=== PATIENT | male | born 1945 | race Caucasian/White ===

== ENCOUNTER → 2016-03-27 | Outpatient (CLI) | payer OTHER ==
[~2016-03-27] MED LIST: AMLO10TA PO; APIX5TAB2 PO; ASPI-892 PO; Amiodarone Hcl PO; ENAL20TA PO; ENLP10T PO; FRSM40T PO; FURO40TA4 PO; METO50TA2 PO; Metoprolol Tartrate PO; PNT40TEC PO; RIVA20TA2 PO
--- OUTSIDE RECORDS SUMMARY | 2016-03-27 08:31 | XMS REPORT | Continuity of Care Document ---
Author Author [facility] Organization [facility] Address Unknown Phone Unavailable Care Team Providers Care Process Control Tech Name Role Phone PCP Unavailable Source Comments Some departments are not documenting in the electronic medical record. If you do not see the information that you expected, contact Release of Information in the Health Information Management department at [phone] for further assistance in locating additional records.[facility] Active Allergies and Adverse Reactions Allergen Noted Date Severity Reactions Comments Codeine 08/13/2014 High DIZZINESS, SYNCOPE Current Medications Prescription Sig. Disp. Refills Start End Date Status Date aspirin EC 81 mg tablet Take 81 mg by mouth Active daily. enalapril (VASOTEC) 20 mg Take 20 mg by mouth Active tablet daily. amLODIPine (NORVASC) 10 Take 10 mg by mouth Active mg tablet daily. metoprolol (LOPRESSOR) 50 Take 50 mg by mouth twice Active mg tablet daily. apixaban (ELIQUIS) 5 mg Take 5 mg by mouth twice Active tab tablet daily. furosemide (LASIX) 40 mg Take 40 mg by mouth Active tablet daily. pantoprazole DR Take 40 mg by mouth Active (PROTONIX) 40 mg tablet daily. Active Problems Problem Noted Date Paroxysmal atrial fibrillation (HCC) 08/14/2014 Overview: 07/16/14: Echo: Via [facility]: EF 50%. Left atrium is dilated LA size=4.2 cm. TDS d/t body habitus 07/18/14:KAT/ DCCV: [facility]: EF 60% mild to moderate mitral regurgitation. Unable to maintain NSR after 2 attempts. Loaded with amiodarone bolus then IV drip. 07/19/14: DCCV: [facility]: 3 attempts for conversion to NSR failed Coronary artery disease involving [place] coronary artery 08/14/2014 Overview: 07/17/14: Lexiscan Stress test: [facility]: EF 36% no ischemia or infarction, diffuse LV hypokinesia 08/01/14: Cardiac Cath: [facility]: mild CAD Social History Tobacco Use Types Packs/Day Years Used Date Current Every Day Smoker Cigars Alcohol Use Drinks/Week oz/Week Comments No 0 Standard 0.0 drinks or equivalent Plan of Care Health Maintenance Due Date Last Done Comments Physical (Comprehensive) 11/27/1952 Exam Pertussis Vaccine 11/27/1958 Tetanus Vaccine 11/27/1964 Colorectal Cancer 11/27/1997 Screening Shingles Vaccine 2007 Prevnar/Pneumovax (#1) 11/27/2012 Influenza Vaccine 10/17/2015 Results from Last 3 Months Not on file
== END ==
LOC: CARD 08:28
PROVIDERS: ATTEND Internal Medicine Interventional Cardiology
DX: I48.1 Persistent atrial fibrillation (principal)
CPT/HCPCS: 93225; 93226

== ENCOUNTER 2016-06-12 08:46 | Outpatient (RCR) | payer OTHER ==
[2016-05-20 09:59] LABS: CALCIUM 8.9 MG/DL (8.5-10.1); CREATININE SERUM 1.3 MG/DL (0.60-1.30); POTASSIUM 4.8 MMOL/L (3.6-5.0)
== END 2016-08-18 | disposition home or self-care (01) ==
LOC: CARD 08:46
PROVIDERS: ATTEND Internal Medicine Interventional Cardiology
DX: I48.1 Persistent atrial fibrillation (principal)
CPT/HCPCS: 36415; 80048; 93270

== ENCOUNTER → 2016-09-01 | Outpatient (CLI) | payer OTHER ==
[2016-09-01 12:12] LABS: ALBUMIN 3.9 GM/DL (3.2-4.5); BILIRUBIN,TOTAL 0.7 MG/DL (0.1-1.0); CALCIUM 9.2 MG/DL (8.5-10.1); CREATININE SERUM 1.33 MG/DL (0.60-1.30); POTASSIUM 4.4 MMOL/L (3.6-5.0); TOTAL PROTEIN 7.6 GM/DL (6.4-8.2)
== END ==
LOC: CARD 11:38
PROVIDERS: ATTEND Physician Assistant
DX: I11.0 Hypertensive heart disease with heart failure (principal); I50.22 Chronic systolic (congestive) heart failure; E78.2 Mixed hyperlipidemia; I48.1 Persistent atrial fibrillation
CPT/HCPCS: 36415; 80053; 80061

== ENCOUNTER 2017-02-16 11:07 | Inpatient (IN) | payer SELFPAY ==
[~2017-02-16] VITALS: Ht 177.8 cm; Wt 142.2 kg
[2017-02-16] MEDS ORDERED: NS IV 1000 ML 1,000 ML IV ONE (12:12)
[2017-02-16] MEDS ORDERED: CLINDAMYCIN INJECTION 900 MG in NS (IVPB) 50 ML IV ONE (12:15)
[2017-02-16 12:30] LABS: BASOPHILS % (AUTO) 0 % (0-10); EOSINOPHILS # (AUTO) 0.1 10^3/uL (0.0-0.3); EOSINOPHILS % (AUTO) 1 % (0-10); HEMATOCRIT 45 % (40-54); HEMOGLOBIN 15.2 G/DL (13.3-17.7); LYMPHOCYTES # (AUTO) 1.5 X 10^3 (1.0-4.0); LYMPHOCYTES % (AUTO) 11 % (12-44); MEAN CORPUSCULAR HEMOGLOBIN 32 PG (25-34); MEAN CORPUSCULAR HGB CONC 34 G/DL (32-36); MEAN CORPUSCULAR VOLUME 94 FL (80-99); MEAN PLATELET VOLUME 11.1 FL (7.4-10.4); MONOCYTES # (AUTO) 1.5 X 10^3 (0.0-1.0); MONOCYTES % (AUTO) 11 % (0-12); NEUTROPHILS # (AUTO) 11.2 X 10^3 (1.8-7.8); NEUTROPHILS % (AUTO) 78 % (42-75); PLATELET COUNT 150 10^3/uL (130-400); RED BLOOD COUNT 4.81 10^6/uL (4.35-5.85); RED CELL DISTRIBUTION WIDTH 13.9 % (10.0-14.5); WHITE BLOOD COUNT 14.3 10^3/uL (4.3-11.0)
[2017-02-16 12:44] LABS: ALANINE AMINOTRANSFERASE 35 U/L (0-55); ALBUMIN 3.6 GM/DL (3.2-4.5); ALKALINE PHOSPHATASE 80 U/L (40-136); BUN/CREATININE RATIO 15; CALCIUM 8.6 MG/DL (8.5-10.1); CARBON DIOXIDE 21 MMOL/L (21-32); CHLORIDE 103 MMOL/L (98-107); GFR ESTIMATED 55; GLUCOSE 113 MG/DL (70-105); SODIUM 135 MMOL/L (135-145)
[2017-02-16 13:00] LABS: BAND NEUTROPHILS 4 %; BASOPHILS % (MANUAL) 0 %; EOSINOPHILS % (MANUAL) 1 %; LYMPHOCYTES % (MANUAL) 13 %; MONOCYTES % (MANUAL) 6 %; NEUTROPHILS % (MANUAL) 76 %; RBC MORPH NORMAL
[2017-02-16] MEDS ORDERED: VANCOMYCIN INJECTION 1,000 MG in NS (IVPB) 250 ML IV ONE (14:00)
--- OUTSIDE RECORDS SUMMARY | 2017-02-16 14:33 | XMS REPORT | Clinical Summary ---
Author Author [facility] Organization [facility] Address Unknown Phone Unavailable Care Team Providers Care Weatherization Installer Name Role Phone PCP Unavailable Source Comments Some departments are not documenting in the electronic medical record. If you do not see the information that you expected, contact Release of Information in the Health Information Management department at [phone] for further assistance in locating additional records.[facility] Allergies Active Allergy Reactions Severity Noted Date Comments Codeine DIZZINESS, SYNCOPE High 08/13/2014 Current Medications Prescription Sig. Disp. Refills Start [...] fibrillation (HCC) 08/14/2014 Overview: 07/16/14: Echo: [facility]: EF 50%. Left atrium is dilated LA size=4.2 cm. TDS d/t body habitus 07/18/14:KAT/ DCCV: [facility]: EF 60% mild to moderate mitral regurgitation. Unable to maintain NSR after 2 attempts. Loaded with amiodarone bolus then IV drip. 07/19/14: DCCV: [facility]: 3 attempts for conversion to NSR failed Coronary artery disease involving [place] coronary artery 08/14/2014 Overview: 07/17/14: Lexiscan Stress test: [facility]: EF 36% no ischemia or infarction, diffuse LV hypokinesia 08/01/14: Cardiac Cath: [facility]: mild CAD Family History Medical History Relation Name Comments Glaucoma Father Stroke Father Diabetes Mother Hypertension Mother Relation Name Status Comments Father Mother Social History Tobacco Use Types Packs/Day Years Used Date Current Every Day Smoker Cigars Alcohol Use Drinks/Week oz/Week Comments No 0 Standard 0.0 drinks or equivalent Sex Assigned at Date Recorded Not on file Last Filed Vital Signs Not on file Plan of Treatment Health Maintenance Due Date Last Done Comments HEPATITIS C SCREENING 1945 PHYSICAL (COMPREHENSIVE) 11/27/1952 EXAM PERTUSSIS VACCINE 11/27/1958 TETANUS VACCINE 11/27/1964 COLORECTAL CANCER 11/27/1997 SCREENING SHINGLES VACCINE 2007 ABDOMINAL AORTIC ANEURYSM 11/27/2012 SCREENING PREVNAR/PNEUMOVAX (#1) 11/27/2012 INFLUENZA VACCINE 09/15/2016 Results Not on filefrom Last 3 Months
--- OUTSIDE RECORDS SUMMARY | 2017-02-16 14:34 | XMS REPORT | Continuity of Care Document ---
Author Author [facility] Organization [facility] Address Unknown Phone Unavailable Allergies Active Description Code Type Severity Reaction Onset Reported/Identified Relationship to Patient Clinical Status Yes codeine [id number] Drug Allergy Moderate DIZZYNESS, GERMAN 07/16/2014 Medications There is no data. Problems Date Dx Coded Attending Type Code Diagnosis Diagnosed By 07/19/2014 HÉCTOR BISWAS, YARA R Ot 250.00 DIAB RAUL WO COMPL, TYPE II OR UNSPEC TY 07/19/2014 YARA ANAYA MD R Ot 272.4 HYPERLIPIDEMIA NEC/NOS 07/19/2014 YARA ANAYA MD R Ot 278.01 MORBID OBESITY 07/19/2014 YARA ANAYA MD R Ot 305.1 TOBACCO USE DISORDER 07/19/2014 YARA ANAYA MD R Ot 338.29 OTHER CHRONIC PAIN 07/19/2014 YARA ANAYA MD R Ot 401.9 HYPERTENSION NOS 07/19/2014 YARA ANAYA MD R Ot 427.31 ATRIAL FIBRILLATION 07/19/2014 YARA ANAYA MD R Ot 427.89 CARDIAC DYSRHYTHMIAS NEC 07/19/2014 YARA ANAYA MD R Ot 496 CHR AIRWAY OBSTRUCT NEC 07/19/2014 YARA ANAYA MD R Ot 716.90 ARTHROPATHY NOS-UNSPEC 07/19/2014 YARA ANAYA MD R Ot 724.5 BACKACHE NOS 07/19/2014 YARA ANAYA MD R Ot 780.57 UNSPECIFIED SLEEP APNEA 07/19/2014 YARA ANAYA MD R Ot 782.3 EDEMA 07/19/2014 YARA ANAYA MD R Ot 783.1 ABNORMAL WEIGHT GAIN 07/19/2014 YARA ANAYA MD R Ot 786.09 RESPIRATORY ABNORM NEC 07/19/2014 YARA ANAYA MD R Ot 786.59 CHEST PAIN NEC 07/19/2014 YARA ANAYA MD R Ot V85.42 BODY MASS INDEX 45.0-49.9, ADULT 07/26/2014 HÉCTOR BISWAS, YARA R Ot 250.00 07/26/2014 HÉCTOR BISWAS, YARA R Ot 272.4 07/26/2014 HÉCTOR BISWAS, YARA R Ot 278.01 07/26/2014 HÉCTOR BISWAS, YARA R Ot 305.1 07/26/2014 HÉCTOR BISWAS, YARA R Ot 338.29 07/26/2014 HÉCTOR BISWAS, YARA R Ot 401.9 07/26/2014 HÉCTOR BISWAS, YARA R Ot 427.31 07/26/2014 HÉCTOR BISWAS, YARA R Ot 427.89 07/26/2014 HÉCTOR BISWAS, YARA R Ot 496 07/26/2014 HÉCTOR BISWAS, YARA R Ot 716.90 07/26/2014 HÉCTOR BISWAS, YARA R Ot 724.5 07/26/2014 HÉCTOR BISWAS, YARA R Ot 780.57 07/26/2014 HÉCTOR BISWAS, YARA R Ot 782.3 07/26/2014 HÉCTOR BISWAS, YARA R Ot 783.1 07/26/2014 HÉCTOR BISWAS, YARA R Ot 786.09 07/26/2014 HÉCTOR BISWAS, YARA R Ot 786.59 07/26/2014 HÉCTOR BISWAS, YARA R Ot V85.42 07/26/2014 HÉCTOR BISWAS, YARA R Ot 250.00 07/26/2014 HÉCTOR BISWAS, YARA R Ot 272.4 07/26/2014 HÉCTOR BISWAS, YARA R Ot 278.01 07/26/2014 HÉCTOR BISWAS, YARA R Ot 305.1 07/26/2014 HÉCTOR BISWAS, YARA R Ot 338.29 07/26/2014 HÉCTOR BISWAS, YARA R Ot 401.9 07/26/2014 HÉCTOR BISWAS, YARA R Ot 427.31 07/26/2014 HÉCTOR BISWAS, YARA R Ot 427.89 07/26/2014 HÉCTOR BISWAS, YARA R Ot 496 07/26/2014 HÉCTOR BISWAS, YARA R Ot 716.90 07/26/2014 HÉCTOR BISWAS, YARA R Ot 724.5 07/26/2014 HÉCTOR BISWAS, YARA R Ot 780.57 07/26/2014 HÉCTOR BISWAS, YARA R Ot 782.3 07/26/2014 HÉCTOR BISWAS, YARA R Ot 783.1 07/26/2014 HÉCTOR BISWAS, YARA R Ot 786.09 07/26/2014 HÉCTOR BISWAS, YARA R Ot 786.59 07/26/2014 HÉCTOR BISWAS, YARA R Ot V85.42 07/26/2014 HÉCTOR BISWAS, YARA R Ot 250.00 07/26/2014 HÉCTOR BISWAS, YARA R Ot 272.4 07/26/2014 HÉCTOR BISWAS, YARA R Ot 278.01 07/26/2014 HÉCTOR BISWAS, YARA R Ot 305.1 07/26/2014 HÉCTOR BISWAS, YARA R Ot 338.29 07/26/2014 HÉCTOR BISWAS, YARA R Ot 401.9 07/26/2014 HÉCTOR BISWAS, YARA R Ot 427.31 07/26/2014 HÉCTOR BISWAS, YARA R Ot 427.89 07/26/2014 HÉCTOR BISWAS, YARA R Ot 496 07/26/2014 HÉCTOR BISWAS, YARA R Ot 716.90 07/26/2014 HÉCTOR BISWAS, YARA R Ot 724.5 07/26/2014 HÉCTOR BISWAS, YARA R Ot 780.57 07/26/2014 HÉCTOR BISWAS, YARA R Ot 782.3 07/26/2014 HÉCTOR BISWAS, YARA R Ot 783.1 07/26/2014 HÉCTOR BISWAS, YARA R Ot 786.09 07/26/2014 HÉCTOR BISWAS, YARA R Ot 786.59 07/26/2014 HÉCTOR BISWAS, YARA R Ot V85.42 08/02/2014 JARED DOMÍNGUEZ MD Ot 272.4 HYPERLIPIDEMIA NEC/NOS 08/02/2014 JARED DOMÍNGUEZ MD Ot 278.01 MORBID OBESITY 08/02/2014 JARED DOMÍNGUEZ MD Ot 305.1 TOBACCO USE DISORDER 08/02/2014 JARED DOMÍNGUEZ MD Ot 327.23 OBSTRUCTIVE SLEEP APNEA (ADULT) (PEDIATR 08/02/2014 JARED DOMÍNGUEZ MD Ot 401.9 HYPERTENSION NOS 08/02/2014 JARED DOMÍNGUEZ MD Ot 414.01 CORONARY ATHEROSCLEROSIS OF [place] CORON 08/02/2014 JARED DOMÍNGUEZ MD Ot 425.4 PRIM CARDIOMYOPATHY NEC 08/02/2014 JARED DOMÍNGUEZ MD Ot 427.31 ATRIAL FIBRILLATION 08/02/2014 JARED DOMÍNGUEZ MD Ot 428.0 CONGESTIVE HEART FAILURE NOS 08/02/2014 JARED DOMÍNGUEZ MD Ot 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 08/02/2014 JARED DOMÍNGUEZ MD Ot 496 CHR AIRWAY OBSTRUCT NEC 08/02/2014 JARED DOMÍNGUEZ MD Ot 786.50 CHEST PAIN NOS 08/02/2014 JARED DOMÍNGUEZ MD Ot V58.61 ANTICOAGULANTS,LT,CURRENT USE 08/02/2014 JARED DOMÍNGUEZ MD Ot V58.69 OTH MED,LT,CURRENT USE 08/02/2014 JARED DOMÍNGUEZ MD Ot V85.43 BODY MASS INDEX 50.0-59.9, ADULT 03/27/2016 GINNA BISWAS, Nash VALDEZ Ot I48.1 PERSISTENT ATRIAL FIBRILLATION 03/27/2016 GINNA BISWAS, Nash VALDEZ Ot I48.1 PERSISTENT ATRIAL FIBRILLATION 03/27/2016 Nash CHACKO MD Ot I48.1 PERSISTENT ATRIAL FIBRILLATION 03/30/2016 Nash CHACKO MD Ot I48.1 PERSISTENT ATRIAL FIBRILLATION 03/30/2016 Nash CHACKO MD Ot I48.1 PERSISTENT ATRIAL FIBRILLATION 05/21/2016 GINNA BISWAS, Nash VALDEZ Ot I48.1 PERSISTENT ATRIAL FIBRILLATION 08/18/2016 Nash CHACKO MD Ot I48.1 PERSISTENT ATRIAL FIBRILLATION 08/31/2016 Nash CHACKO MD Ot I48.1 PERSISTENT ATRIAL FIBRILLATION 09/10/2016 MATT BISWAS Ot E78.2 MIXED HYPERLIPIDEMIA 09/10/2016 MATT BISWAS Ot I11.0 HYPERTENSIVE HEART DISEASE WITH HEART FA 09/10/2016 MATT BISWAS Ot I48.1 PERSISTENT ATRIAL FIBRILLATION 09/10/2016 MATT BISWAS Ot I50.22 CHRONIC SYSTOLIC (CONGESTIVE) HEART FAIL Procedures Code Description Performed By Performed On 99.61 ATRIAL CARDIOVERSION 07/18/2014 99.61 ATRIAL CARDIOVERSION 07/19/2014 Results Test Result Range Whole blood basic metabolic panel - 05/20/16 09:16 Serum or plasma sodium measurement (moles/volume) 141 mmol/L 135-145 Serum or plasma potassium measurement (moles/volume) 4.8 mmol/L 3.6-5.0 Serum or plasma chloride measurement (moles/volume) 109 mmol/L 98-107 Carbon dioxide 21 mmol/L 21-32 Serum or plasma anion gap determination (moles/volume) 11 mmol/L 5-14 Serum or plasma urea nitrogen measurement (mass/volume) 22 mg/dL 7-18 Serum or plasma creatinine measurement (mass/volume) 1.30 mg/dL 0.60-1.30 Serum or plasma urea nitrogen/creatinine mass ratio 17 NRG Serum or plasma creatinine measurement with calculation of estimated glomerular filtration rate 55 NRG Serum or plasma glucose measurement (mass/volume) 99 mg/dL 70-105 Serum or plasma calcium measurement (mass/volume) 8.9 mg/dL 8.5-10.1 Comprehensive metabolic panel - 09/01/16 11:45 Serum or plasma sodium measurement (moles/volume) 140 mmol/L 135-145 Serum or plasma potassium measurement (moles/volume) 4.4 mmol/L 3.6-5.0 Serum or plasma chloride measurement (moles/volume) 106 mmol/L 98-107 Carbon dioxide 25 mmol/L 21-32 Serum or plasma anion gap determination (moles/volume) 9 mmol/L 5-14 Serum or plasma urea nitrogen measurement (mass/volume) 20 mg/dL 7-18 Serum or plasma creatinine measurement (mass/volume) 1.33 mg/dL 0.60-1.30 Serum or plasma urea nitrogen/creatinine mass ratio 15 NRG Serum or plasma creatinine measurement with calculation of estimated glomerular filtration rate 53 NRG Serum or plasma glucose measurement (mass/volume) 104 mg/dL 70-105 Serum or plasma calcium measurement (mass/volume) 9.2 mg/dL 8.5-10.1 Serum or plasma total bilirubin measurement (mass/volume) 0.7 mg/dL 0.1-1.0 Serum or plasma alkaline phosphatase measurement (enzymatic activity/volume) 86 U/L 40-136 Serum or plasma aspartate aminotransferase measurement (enzymatic activity/ volume) 16 U/L 5-34 Serum or plasma alanine aminotransferase measurement (enzymatic activity/volume ) 20 U/L 0-55 Serum or plasma protein measurement (mass/volume) 7.6 g/dL 6.4-8.2 Serum or plasma albumin measurement (mass/volume) 3.9 g/dL 3.2-4.5 Lipid 1996 panel - 09/01/16 11:45 Serum or plasma triglyceride measurement (mass/volume) 99 mg/dL <150 Serum or plasma cholesterol measurement (mass/volume) 197 mg/dL < 200 Serum or plasma cholesterol in HDL measurement (mass/volume) 34 mg/ dL 40-60 Cholesterol in LDL [mass/volume] in serum or plasma by direct assay 149 mg/dL 1-129 Serum or plasma cholesterol in VLDL measurement (mass/volume) 20 mg/ dL 5-40 Complete blood count (CBC) with automated white blood cell (WBC) differential - 02/16/17 11:38 Blood leukocytes automated count (number/volume) 14.3 10*3/uL 4.3-11.0 Blood erythrocytes automated count (number/volume) 4.81 10*6/uL 4.35-5.85 Venous blood hemoglobin measurement (mass/volume) 15.2 g/dL 13.3-17.7 Blood hematocrit (volume fraction) 45 % 40-54 Automated erythrocyte mean corpuscular volume 94 [foz_us] 80-99 Automated erythrocyte mean corpuscular hemoglobin (mass per erythrocyte) 32 pg 25-34 Automated erythrocyte mean corpuscular hemoglobin concentration measurement ( mass/volume) 34 g/dL 32-36 Automated erythrocyte distribution width ratio 13.9 % 10.0-14.5 Automated blood platelet count (count/volume) 150 10*3/uL 130-400 Automated blood platelet mean volume measurement 11.1 [foz_us] 7.4-10.4 Automated blood neutrophils/100 leukocytes 78 % 42-75 Automated blood lymphocytes/100 leukocytes 11 % 12-44 Blood monocytes/100 leukocytes 11 % 0-12 Automated blood eosinophils/100 leukocytes 1 % 0-10 Automated blood basophils/100 leukocytes 0 % 0-10 Blood neutrophils automated count (number/volume) 11.2 10*3 1.8-7.8 Blood lymphocytes automated count (number/volume) 1.5 10*3 1.0-4.0 Blood monocytes automated count (number/volume) 1.5 10*3 0.0-1.0 Automated eosinophil count 0.1 10*3/uL 0.0-0.3 Automated blood basophil count (count/volume) 0.0 10*3/uL 0.0-0.1 Comprehensive metabolic panel - 02/16/17 11:38 Serum or plasma sodium measurement (moles/volume) 135 mmol/L 135-145 Serum or plasma potassium measurement (moles/volume) 4.0 mmol/L 3.6-5.0 Serum or plasma chloride measurement (moles/volume) 103 mmol/L 98-107 Carbon dioxide 21 mmol/L 21-32 Serum or plasma anion gap determination (moles/volume) 11 mmol/L 5-14 Serum or plasma urea nitrogen measurement (mass/volume) 20 mg/dL 7-18 Serum or plasma creatinine measurement (mass/volume) 1.30 mg/dL 0.60-1.30 Serum or plasma urea nitrogen/creatinine mass ratio 15 NRG Serum or plasma creatinine measurement with calculation of estimated glomerular filtration rate 55 NRG Serum or plasma glucose measurement (mass/volume) 113 mg/dL 70-105 Serum or plasma calcium measurement (mass/volume) 8.6 mg/dL 8.5-10.1 Serum or plasma total bilirubin measurement (mass/volume) 1.0 mg/dL 0.1-1.0 Serum or plasma alkaline phosphatase measurement (enzymatic activity/volume) 80 U/L 40-136 Serum or plasma aspartate aminotransferase measurement (enzymatic activity/ volume) 25 U/L 5-34 Serum or plasma alanine aminotransferase measurement (enzymatic activity/volume ) 35 U/L 0-55 Serum or plasma protein measurement (mass/volume) 7.0 g/dL 6.4-8.2 Serum or plasma albumin measurement (mass/volume) 3.6 g/dL 3.2-4.5 Serum or plasma C reactive protein measurement (mass/volume) - 02/16/17 11:38 Serum or plasma C reactive protein measurement (mass/volume) > mg/ dL 0.00-0.50 Blood manual differential performed detection - 02/16/17 11:38 Blood monocytes/100 leukocytes 6 % NRG Manual blood segmented neutrophils/100 leukocytes 76 % NRG Blood band neutrophils/100 leukocytes 4 % NRG Manual blood lymphocytes/100 leukocytes 13 % NRG Manual eosinophils/100 leukocytes in nose 1 % NRG Manual blood basophils/100 leukocytes 0 % NRG Blood erythrocyte morphology finding identification NORMAL NRG Blood lactic acid measurement (moles/volume) - 02/16/17 13:21 Blood lactic acid measurement (moles/volume) 1.32 mmol/L 0.50-2.00 Encounters ACCT No. Visit Date/Time Discharge Status Pt. Type Provider Facility Loc./Unit Complaint [id number] 09/01/2016 11:38:00 09/01/2016 23:59:59 CLS Outpatient MATT BISWAS [facility] CARD I50.22 I10 E78.2 I48.1 [id number] 08/19/2016 09:30:00 08/19/2016 23:59:59 CLS Preadmit Nash CHACKO MD [facility] CARD PERSISTENT AFIB [id number] 06/12/2016 08:46:00 08/18/2016 00:01:00 DIS Outpatient Nash CHACKO MD [facility] CARD PERSISTENT AFIB [id number] 03/27/2016 08:28:00 03/27/2016 23:59:59 CLS Outpatient Nash CHACKO MD [facility] CARD PERSISTENT AFIB [id number] 08/01/2014 07:43:00 08/02/2014 09:44:00 DIS Outpatient CATRACHITA BISWAS, JARED Byrd [facility] CATH CP,AFIB,HTN,HLP [id number] 07/18/2014 13:58:00 07/19/2014 16:45:00 DIS Inpatient YARA ANAYA MD [facility] CSD BRACHYCARDIA,CP,DYSPNEA [id number] 02/16/2017 12:33:00 Document Registration
--- NOTE | 2017-02-16 15:16 | ED General ---
General Chief Complaint: Skin/Wound Problems Stated Complaint: ABDOMINAL WALL CELLULITIS Nursing Triage Note: pt reports lower abdomen redness and pain x 2 days. pt also reports body chills Nursing Sepsis Screen: No Definite Risk Source of Information: Patient Exam Limitations: No Limitations History of Present Illness Time Seen by Provider: 12:05 Initial Comments This 71-year-old gentleman presents to the emergency room with 2 days of anterior abdominal wall tenderness and erythema that is rapidly spreading. He can recall no break in the skin or other injury that could have incited cellulitis. He is afebrile but has experienced some chills. Allergies and Home Medications Allergies Coded Allergies: codeine (Unverified Allergy, Intermediate, DIZZYNESS, FAINTING, 07/16/14) Home Medications Amlodipine Besylate 10 Mg Tablet, 10 MG PO DAILY, (Reported) Enalapril Maleate 10 Mg Tab, 10 MG PO DAILY, (Reported) Furosemide 40 Mg Tablet, 40 MG PO DAILY, (Reported) Metoprolol Tartrate 50 Mg Tablet, 50 MG PO BID, (Reported) Pantoprazole Sod 40 Mg Tab, 40 MG PO DAILY, (Reported) Rivaroxaban 20 Mg Tablet, 20 MG PO DAILY@1700, #30 Ref 4 Prescribed by: JARED DOMÍNGUEZ on 08/02/14 0717 Constitutional: see HPI EENTM: no symptoms reported Respiratory: no symptoms reported Cardiovascular: no symptoms reported Gastrointestinal: no symptoms reported Genitourinary: no symptoms reported Musculoskeletal: no symptoms reported Skin: see HPI Psychiatric/Neurological: No Symptoms Reported Hematologic/Lymphatic: No Symptoms Reported Past Rxefwuf-Jeexse-Qwnfoi Hx Patient Social History Alcohol Use: Denies Use Recreational Drug Use: No Smoking Status: Current Everyday Smoker Type Used: Cigars Recent Foreign Travel: No Contact w/Someone Who Travel: No Recent Infectious Disease Expo: No Physical Abuse: No Sexual Abuse: No Mistreated: No Fear: No Immunizations Up To Date Tetanus Booster (TDap): More than 5yrs Surgeries History of Surgeries: Yes (hernia repair, r knee) Surgeries: Abdominal, Orthopedic Respiratory History of Respiratory Disorde: Yes Respiratory Disorders: Sleep Apnea Cardiovascular History of Cardiac Disorders: Yes (CHF) Cardiac Disorders: Atrial Fibrillation (on chronic anticoagulation), Coronary Artery Disease, High Cholesterol, Hypertension Neurological History of Neurological Disord: No Reproductive System Hx Reproductive Disorders: No Sexually Transmitted Disease: No HIV/AIDS: No Gastrointestinal History of Gastrointestinal Di: No Musculoskeletal History of Musculoskeletal Dis: Yes Musculoskeletal Disorders: Arthritis, Back Injury, Chronic Back Pain Endocrine History of Endocrine Disorders: No HEENT HEENT Disorders: Cataract Loss of Vision: Bilateral Hearing Impairment: Hard of Hearing Cancer History of Cancer: No Psychosocial History of Psychiatric Problem: No Suicide Risk Score: 0 Integumentary History of Skin or Integumenta: No Blood Transfusions History of Blood Disorders: No Adverse Reaction to a Blood Tr: No Physical Exam Vital Signs Vital Sign - Last 12Hours 02/16/17 11:40 Temp 97.6 Pulse 138 Resp 16 B/P (MAP) 126/96 (106) Pulse Ox 96 Capillary Refill : Less Than 3 Seconds General Appearance: No Apparent Distress, WD/WN HEENT: PERRL/EOMI, Normal ENT Inspection, Pharynx Normal Neck: Normal Inspection Respiratory: Lungs Clear, Normal Breath Sounds, No Accessory Muscle Use, No Respiratory Distress Cardiovascular: No Edema, No Murmur, Irregularly Irregular Gastrointestinal: Normal Bowel Sounds, Soft, Tenderness, Other (heat and erythema to much of the lower abdominal wall.) Extremity: Normal Inspection, No Pedal Edema Neurologic/Psychiatric: Alert, Oriented x3, No Motor/Sensory Deficits, Normal 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, 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 Norm as Tested Skin: Warm/Dry, Erythema Focused Exam Evaluation Lactate Level Laboratory Tests 02/16/17 13:21: Lactic Acid Level 1.32 Lactic Acid Level Laboratory Tests Test 02/16/17 13:21 Lactic Acid Level 1.32 MMOL/L (0.50-2.00) Progress/Results/Core Measures Suspected Sepsis Recent Fever Within 48 Hours: No Infection Criteria Present: Suspected New Infection New/Unexplained Altered Menta: No Sepsis Screen: No Definite Risk Sepsis Diagnosis: SIRS Temperature:97.6 Pulse: 138 Respiratory Rate: 16 Laboratory Tests 02/16/17 11:38: White Blood Count 14.3H Blood Pressure 126 /96 Mean: 106 Laboratory Tests 02/16/17 13:21: Lactic Acid Level 1.32 Laboratory Tests 02/16/17 11:38: Creatinine 1.30, Platelet Count 150, Total Bilirubin 1.0 Results/Orders Lab Results Laboratory Tests Test 02/16/17 11:38 02/16/17 13:21 Range/Units White Blood Count 14.3 H 4.3-11.0 10^3/uL Red Blood Count 4.81 4.35-5.85 10^6/uL Hemoglobin 15.2 13.3-17.7 G/DL Hematocrit 45 40-54 % Mean Corpuscular Volume 94 80-99 FL Mean Corpuscular Hemoglobin 32 25-34 PG Mean Corpuscular Hemoglobin Concent 34 32-36 G/DL Red Cell Distribution Width 13.9 10.0-14.5 % Platelet Count 150 130-400 10^3/uL Mean Platelet Volume 11.1 H 7.4-10.4 FL Neutrophils (%) (Auto) 78 H 42-75 % Lymphocytes (%) (Auto) 11 L 12-44 % Monocytes (%) (Auto) 11 0-12 % Eosinophils (%) (Auto) 1 0-10 % Basophils (%) (Auto) 0 0-10 % Neutrophils # (Auto) 11.2 H 1.8-7.8 X 10^3 Lymphocytes # (Auto) 1.5 1.0-4.0 X 10^3 Monocytes # (Auto) 1.5 H 0.0-1.0 X 10^3 Eosinophils # (Auto) 0.1 0.0-0.3 10^3/uL Basophils # (Auto) 0.0 0.0-0.1 10^3/uL Neutrophils % (Manual) 76 % Lymphocytes % (Manual) 13 % Monocytes % (Manual) 6 % Eosinophils % (Manual) 1 % Basophils % (Manual) 0 % Band Neutrophils 4 % Blood Morphology Comment NORMAL Sodium Level 135 135-145 MMOL/L Potassium Level 4.0 3.6-5.0 MMOL/L Chloride Level 103 98-107 MMOL/L Carbon Dioxide Level 21 21-32 MMOL/L Anion Gap 11 5-14 MMOL/L Blood Urea Nitrogen 20 H 7-18 MG/DL Creatinine 1.30 0.60-1.30 MG/DL Estimat Glomerular Filtration Rate 55 BUN/Creatinine Ratio 15 Glucose Level 113 H 70-105 MG/DL Calcium Level 8.6 8.5-10.1 MG/DL Total Bilirubin 1.0 0.1-1.0 MG/DL Aspartate Amino Transf (AST/SGOT) 25 5-34 U/L Alanine Aminotransferase (ALT/SGPT) 35 0-55 U/L Alkaline Phosphatase 80 40-136 U/L C-Reactive Protein High Sensitivity > 15.00 H 0.00-0.50 MG/DL Total Protein 7.0 6.4-8.2 GM/DL Albumin 3.6 3.2-4.5 GM/DL Lactic Acid Level 1.32 0.50-2.00 MMOL/L My Orders Orders - ASHLEY PITTMAN MD Cbc With Automated Diff (02/16/17 12:12) Comprehensive Metabolic Panel (02/16/17 12:12) Hs C Reactive Protein (02/16/17 12:12) Blood Culture (02/16/17 12:12) Saline Lock/Iv-Start (02/16/17 12:12) Ns Iv 1000 Ml (Sodium Chloride 0.9%) (02/16/17 12:12) Lactic Acid Analyzer (02/16/17 12:12) Clindamycin Injection (Cleocin Injection (02/16/17 12:15) Manual Differential (02/16/17 11:38) Vancomycin Injection (Vancomycin Injecti (02/16/17 14:00) Medications Given in ED Current Medications Medications Dose Ordered Sig/Lauar Route Start Time Stop Time Status Last Admin Dose Admin Clindamycin Phosphate 900 mg/ Sodium Chloride 56 ml @ 100 mls/hr ONCE ONCE IV 02/16/17 12:15 02/16/17 12:48 DC 02/16/17 13:22 100 MLS/HR Sodium Chloride 1,000 ml @ 0 mls/hr Q0M ONCE IV 02/16/17 12:12 02/16/17 12:15 DC 02/16/17 13:14 999 MLS/HR Vancomycin HCl 1000 mg/Sodium Chloride 250 ml @ 250 mls/hr ONCE ONCE IV 02/16/17 14:00 02/16/17 14:59 DC 02/16/17 14:09 250 MLS/HR Vital Signs/I&O Vital Sign - Last 12Hours 02/16/17 11:40 Temp 97.6 Pulse 138 Resp 16 B/P (MAP) 126/96 (106) Pulse Ox 96 Capillary Refill : Less Than 3 Seconds Blood Pressure Mean: 106 Progress Note : Progress Note Patient has a significant cellulitis by exam and leukocytosis with markedly elevated CRP on labs. He was given a liter of IV normal saline and started on antibiotic therapy with clindamycin and vancomycin. Case was discussed with Dr. Bentley who agrees with admission for treatment of significant cellulitis with IV antibiotic therapy. Patient declined any pain medication. Departure Communication (Admissions) Communication Dr. Bentley Impression Impression: Primary Impression: Cellulitis, abdominal wall Disposition: ADMITTED INPATIENT Condition: Improved Admissions Decision to Admit Reason: Admit from ER (General) Decision to Admit/Date: Feb 16, 2017 Time/Decision to Admit Time: 12:15 Departure-Patient Inst. Referrals: YARA ANAYA MD (PCP/Family) Primary Care Physician ASHLEY PITTMAN MD Feb 16, 2017 15:16
[2017-02-16 15:30] VITALS: BP 145/89
[2017-02-16] MEDS ORDERED: PANT40TA3 PO (16:59)
[2017-02-16] MEDS ORDERED: RIVA20TA PO (16:59)
[2017-02-16] MEDS ORDERED: ENAL20TA PO (16:59)
[2017-02-16] MEDS ORDERED: VANCOMYCIN 1 GM/NS 250 ML IVPB IV NR ×2 (17:15)
[2017-02-16] MEDS ORDERED: INFLUENZA TRIvalent 2017-2018 0.5 ML/45 MCG SYR IM ONE (17:15)
[2017-02-16] MEDS ORDERED: METO-370 PO (17:19)
[2017-02-16] MEDS ORDERED: POTA-51 PO (17:19)
[2017-02-16] MEDS ORDERED: CATHETER FLUSH 10 ML SYR IV PRN (17:30)
[2017-02-16] MEDS: NS IV 1000 ML 1,000 ML IV SCH (18:14)
[2017-02-16 20:26] VITALS: BP 128/85
[2017-02-16] MEDS: CLINDAMYCIN 900 MG/NS 50 ML IVPB IV SCH ×2 (22:45)
[2017-02-17 00:50] VITALS: BP 138/79
[2017-02-17] MEDS: NS IV 1000 ML 1,000 ML IV SCH ×5 (03:18→22:45)
[2017-02-17 04:25] VITALS: BP 128/66
[2017-02-17] MEDS: CLINDAMYCIN 900 MG/NS 50 ML IVPB IV SCH ×2 (05:43)
[2017-02-17] MEDS: VANCOMYCIN 1500 MG/NS 500 ML IVPB IV SCH ×4 (06:19→18:19)
[2017-02-17 08:00] VITALS: BP 123/77
[2017-02-17] MEDS ORDERED: PIPERACILLIN SODIUM/TAZOBACTAM 4.5 GM in NS (IVPB) 100 ML IV NR (10:30)
--- NOTE | 2017-02-17 10:52 | History & Physical-Hospitalist ---
HPI History of Present Illness: HPI/Chief Complaint CC: Severe abdominal wall abscess with leukocytosis and fever HPI: This is a 71-year-old white male former clinic patient of Dr. Aguilar and regular follow-ups with Dr. Vázquez for atrial fibrillation and CAD who presents to the ER with complaints of abdominal wall erythema and pain. He does have a history of gluteal abscess that was debridement multiple times and eventually healed after surgical excision in the years past who was found to have fever leukocytosis and severe abdominal wall cellulitis with hardened part of the skin high risk for abscess formation. He reports his pain is controlled currently I reconciled all of his home medications and I will consult Dr. Ron to evaluate the need for incision and drainage if that comes to be an issue. He overall is doing well his brought his see Pap sheet so he can use it tonight and I do update him on the possibility of remaining in the hospital for a couple more days for IV antibiotics. He was placed on vancomycin and clindamycin I did broaden out the antibiotic spectrum to Zosyn and discontinue the clindamycin and maintaining the vancomycin due to the severity of the cellulitis. Source: patient, family Exam Limitations: no limitations Date Seen 02/17/17 Time Seen by Provider: 10:30 Attending Physician Santo Bentley MD PCP Cisco Aguilar MD Referring Physician Date of Admission Feb 16, 2017 at 14:22 Home Medications & Allergies Home Medications Reviewed patient Home Medication Reconciliation Form Allergies Allergies Coded Allergies codeine (Unverified Allergy, Intermediate, DIZZYNESS, FAINTING, 07/16/14) Past Omyxnzu-Exrhuw-Wlnlec Hx Patient Social History Marrital Status: Employed/Student: retired Alcohol Use: Denies Use Number of Drinks Today: AA Recreational Drug Use: No Smoking Status: Current Everyday Smoker Type Used: Cigars Physical Abuse Screen: No Sexual Abuse: No Recent Foreign Travel: No Contact w/other who traveled: No Recent Hopitalizations: No Recent Infectious Disease Expo: No Immunizations Up To Date Tetanus Booster (TDap): More than 5yrs Seasonal Allergies Seasonal Allergies: No Surgeries Yes (rt knee) Abdominal, Orthopedic Respiratory Yes COPD Currently Using CPAP: Yes Currently Using BIPAP: No Cardiovascular Yes Atrial Fibrillation (on chronic anticoagulation), Coronary Artery Disease, High Cholesterol, Hypertension Neurological No Reproductive System Hx Reproductive Disorders: No Sexually Transmitted Disease: No HIV/AIDS: No Genitourinary No Gastrointestinal No Musculoskeletal Yes Arthritis, Back Injury, Chronic Back Pain Endocrine History of Endocrine Disorders: No HEENT HEENT Disorders: Cataract Loss of Vision: Bilateral Hearing Impairment: Hard of Hearing Cancer No Psychosocial History of Psychiatric Problem: No Integumentary History of Skin or Integumenta: No Blood Transfusions History of Blood Disorders: No Adverse Reaction to a Blood Tr: No Review of Systems Constitutional: fever, malaise, weakness EENTM: no symptoms reported Respiratory: no symptoms reported Cardiovascular: no symptoms reported Gastrointestinal: no symptoms reported Genitourinary: no symptoms reported Musculoskeletal: no symptoms reported Skin: see HPI, rash Psychiatric/Neurological: No Symptoms Reported All Other Systems Reviewed Negative Unless Noted: Yes Physical Exam Physical Exam Vital Signs Vital Sign - Last 12Hours 02/16/17 02/16/17 11:40 15:30 Temp 97.6 Pulse 138 Resp 16 B/P (MAP) 126/96 (106) Pulse Ox 96 O2 Delivery Room Air Capillary Refill : Less Than 3 Seconds General Appearance: No Apparent Distress, WD/WN, Chronically ill, Obese Eyes: Bilateral Eye Normal Inspection, Bilateral Eye PERRL HEENT: PERRL/EOMI, Normal ENT Inspection, Pharynx Normal Neck: Full Range of Motion, Normal Inspection, Non Tender, Supple, Carotid Bruit Respiratory: Chest Non Tender, Lungs Clear, Normal Breath Sounds, No Accessory Muscle Use, No Respiratory Distress Cardiovascular: Regular Rate, Rhythm, No Edema, No Gallop, No JVD, No Murmur, Normal Peripheral Pulses Gastrointestinal: Normal Bowel Sounds, No Organomegaly, No Pulsatile Mass, Non Tender, Soft Back: Normal Inspection, No CVA Tenderness, No Vertebral Tenderness Extremity: Normal Capillary Refill, Normal Inspection, Normal Range of Motion, Non Tender, No Calf Tenderness, No Pedal Edema Neurologic/Psychiatric: Alert, Oriented x3, No Motor/Sensory Deficits, Normal Mood/Affect Skin: Normal Color, Warm/Dry, Rash (severe erythema of abdominal wall with hardened area under the pannus) Lymphatic: No Adenopathy Results Results/Procedures Lab Laboratory Tests 02/16/17 11:38 Assessment/Plan Admission Diagnosis Severe abdominal wall abscess high risk for abscess formation Assessment and Plan Plan: Broadened antibiotic coverage to Zosyn and vancomycin Consult Dr. Ron for possible abscess formation may need incision and drainage Home medications have been restarted CPAP use Pain control Diagnosis/Problems Diagnosis/Problems (1) Cellulitis, abdominal wall Status: Acute Assessment & Plan: Zosyn and Vanc (2) Atrial fibrillation Status: Chronic Qualifiers: Qualified Codes: I48.2 - Chronic atrial fibrillation (3) Obstructive sleep apnea Status: Chronic Assessment & Plan: Maintain CPAP (4) Obesity Status: Chronic Qualifiers: Qualified Codes: E66.9 - Obesity, unspecified (5) Smoker Status: Chronic Assessment & Plan: Smoking cessation Clinical Quality Measures DVT/VTE Risk/Contraindication: Risk Factor Score Per Nursin RFS Level Per Nursing on Admit: 4+=Very High YULIANA MARTIN DO Feb 17, 2017 10:52
[2017-02-17] MEDS: LACTOBACILLUS Acidoph/Bulgar (LACTINEX/FLORANEX) TAB PO SCH ×2 (10:58→16:38)
[2017-02-17 11:11] LABS: BASOPHILS % (AUTO) 0 % (0-10); EOSINOPHILS # (AUTO) 0.2 10^3/uL (0.0-0.3); EOSINOPHILS % (AUTO) 2 % (0-10); HEMATOCRIT 41 % (40-54); HEMOGLOBIN 13.9 G/DL (13.3-17.7); LYMPHOCYTES # (AUTO) 1.7 X 10^3 (1.0-4.0); LYMPHOCYTES % (AUTO) 17 % (12-44); MEAN CORPUSCULAR HEMOGLOBIN 32 PG (25-34); MEAN CORPUSCULAR HGB CONC 34 G/DL (32-36); MEAN CORPUSCULAR VOLUME 94 FL (80-99); MEAN PLATELET VOLUME 10.8 FL (7.4-10.4); MONOCYTES # (AUTO) 1.2 X 10^3 (0.0-1.0); MONOCYTES % (AUTO) 12 % (0-12); NEUTROPHILS # (AUTO) 6.8 X 10^3 (1.8-7.8); NEUTROPHILS % (AUTO) 69 % (42-75); PLATELET COUNT 145 10^3/uL (130-400); RED CELL DISTRIBUTION WIDTH 13.6 % (10.0-14.5); WHITE BLOOD COUNT 9.9 10^3/uL (4.3-11.0)
[2017-02-17 11:32] LABS: ALANINE AMINOTRANSFERASE 38 U/L (0-55); ALBUMIN 3.3 GM/DL (3.2-4.5); ALKALINE PHOSPHATASE 86 U/L (40-136); BILIRUBIN,TOTAL 0.8 MG/DL (0.1-1.0); BUN/CREATININE RATIO 19; CALCIUM 8.2 MG/DL (8.5-10.1); CARBON DIOXIDE 20 MMOL/L (21-32); CHLORIDE 107 MMOL/L (98-107); CREATININE SERUM 0.89 MG/DL (0.60-1.30); GFR ESTIMATED > 60; GLUCOSE 107 MG/DL (70-105); POTASSIUM 4.3 MMOL/L (3.6-5.0); SODIUM 137 MMOL/L (135-145); TOTAL PROTEIN 6.4 GM/DL (6.4-8.2)
[2017-02-17 12:00] VITALS: BP 138/73
[2017-02-17] MEDS: RT-ALBUTEROL/IPRATROPIUM 3 ML (DUONEB) VIAL INH SCH ×3 (14:15→22:00)
--- NOTE | 2017-02-17 15:08 | CONSULTATION REPORT ---
DATE OF SERVICE: 02/17/2017 ATTENDING PRIMARY CARE PHYSICIAN: Dr. Aguilar. ADMITTING PHYSICIAN: Dr. Bentley. HISTORY OF PRESENT ILLNESS: The patient is a 71-year-old male who was admitted for abdominal wall pain and burning sensation. This gentleman reports that he has had this before in the past, however, very mild. He reports that he has had small pustular lesions along this region on the abdominal wall pannus for years, which he would drain on his own or would spontaneously drain. Upon examination, he does have signs of chronic cellulitis of the abdominal wall along the inferior portion of the pannus. This time around, he has had pain and swelling which was more severe and the redness encompassing the area was much greater. There is also an area of thickening in the central portion which appears to be more consistent with cellulitis. There is no fluctuance at this time to indicate any abscess component. Since being admitted and started on Zosyn, the redness has improved considerably as has the pain. PAST MEDICAL HISTORY: Hypertension, atrial fibrillation, hypercholesterolemia, coronary artery disease, cataracts, degenerative joint disease. PAST SURGICAL HISTORY: Right total knee arthroplasty in 2004, left wrist ORIF in 1993, right hip excisional biopsy of a benign lesion in 1999. ALLERGIES: CODEINE. MEDICATIONS: Xarelto 20 mg daily, enalapril 30 mg daily, Lasix 20 mg daily, Protonix 40 mg daily, potassium daily. SOCIAL HISTORY: Positive smoke, 50 pack years. Negative alcohol. FAMILY HISTORY: Father, pancreatic cancer. Mother, diabetes. VITAL SIGNS: Temperature 97.2, blood pressure 138/73, pulse 80, respirations 20, pulse ox 96% on room air. REVIEW OF SYSTEMS: Well-nourished male, in no acute distress. He is not experiencing shortness of breath or difficulty breathing. No chest pain, palpitations or diaphoresis. No nausea or vomiting, no diarrhea or constipation, no red blood per rectum, no dark tarry stools. No fever or chills. No recent inadvertent weight loss. All other review of systems negative. PHYSICAL EXAMINATION: CHEST: Clear. Good breath sounds bilaterally. HEART: Regular. No murmurs. EXTREMITIES: No lower extremity edema, negative Homans sign. HEENT: No scleral icterus. NECK: No cervical lymphadenopathy. ABDOMEN: Soft, nontender, nondistended. SKIN: Along the inferior portion of the abdominal skin pannus is an area of redness and erythema approximately 14 x 12 cm in size. The area is firm consistently with no areas of fluctuance indicating any abscess at this time, however, a significant cellulitis. The redness has decreased since being admitted and started on IV antibiotics. LABORATORY DATA: WBC 9.9, hemoglobin 13.9, hematocrit 41, platelets 145. ASSESSMENT AND PLAN: A 71-year-old male with abdominal wall pannus cellulitis. This appears to be acute on chronic and there does not appear to be any fluctuance to indicate any abscess at this time. He has also responded well to IV antibiotics with decreased redness, erythema as well as normalization of white count. We will continue to monitor the area for the potential of a developing abscess that will require an incision and drainage. For now, we will continue with conservative management with IV antibiotics and also recommend good hygiene and adequate weight control with diet and exercise. Job ID: [id number] DocumentID: [id number] Dictated Date: 02/17/2017 14:24:21 Delinquent Notice Machine Operator Date: 02/17/2017 15:08:11 Dictated By: KIRBY BALDWIN MD [facility]
--- NOTE | 2017-02-17 15:19 | Physical Therapy Evaluation ---
PT Evaluation-General Medical Diagnosis Admission Date Feb 16, 2017 at 14:22 Medical Diagnosis: abdominal wall erythemia/infection Onset Date: Feb 16, 2017 Therapy Diagnosis Therapy Diagnosis: weakness; abn gait Height/Weight Height (Feet): 5 Height (Inches): 10.00 Weight (Pounds): 316 Weight (Ounces): 0.0 Precautions Precautions/Isolations: Standard Precautions Weight Bear Status Right Lower Extremity: Right Full Weight Bearing Left Lower Extremity: Left Full Weight Bearing Referral Physician: Boyd Reason for Referral: Evaluation/Treatment Medical History Pertinent Medical History: Arthritis, COPD, DM, HTN, Smoking Additional Medical History a fib, high cholesterol, chronic back pain. Current History Admitted with abdominal wall erythemia/burning; found to be infected. Receiving IV antibiotics. Reviewed History: Yes Social History Home: Single Level Current Living Status: Spouse Entry Into Home: Stairs With Railing Prior/Core FIM Prior Level of Function Functional [place] Measure 0=Not Assessed/NA 4=Minimal Assistance 1=Total Assistance 5=Supervision or Setup 2=Maximal Assistance 6=Modified [place] 3=Moderate Assistance 7=Complete [place] Bed Mobility: 6 Transfers (B,C,W/C) (FIM): 6 Gait: 6 (SPC) Locomotion: 6 Pt able to care for himself. Reports his activity is minimal but is able to get around as he desires. PT Evaluation-Current Subjective No specific complaints. Reports it is difficult to move around with the IV attached. Pt/Family Goals Home with spouse when able. Objective Patient Orientation: Person, Place, Time, Situation Problem Solving: Good Attachments: IV ROM/Strength ROM Lower Extremities WFL Strength Lower Extremities WFL Integumentary/Posture Integumentary Refer to nursing notes. Bowel Incontinence: No Bladder Incontinence: No Posture NOrmal and symmetrical Neuromuscular (Tone, Coordination, Reflexes) No noted functional deficits. Sensory Vision: Functional Hearing: Functional Hand Dominance: Right Sensation Right Lower Extremit: Intact Sensation Left Lower Extremity: Intact Transfers Functional [place] Measure 0=Not Assessed/NA 4=Minimal Assistance 1=Total Assistance 5=Supervision or Setup 2=Maximal Assistance 6=Modified [place] 3=Moderate Assistance 7=Complete [place] Transfers (B, C, W/C) (FIM): 5 Supine to/from Sit: 5 Sit to/from Stand: 5 SBA with all functional transfers for safety. Slow with transfer but able to complete without assist. Gait Mode of Locomotion: Walk Anticipated Mode of Locomotion: Walk Gait (FIM): 5 Distance (FIM): 3=150 ft Distance: 250 ft Gait Level of Assist: 5 Gait Persons Needed: 1 Gait Assistive Device: Cane Single Point Comments/Gait Description wide KHALIF with decreased heel toe pattern; Becomes SOA with ambulation but pt reports this is typical, "See, I am like a big rig and big rigs take alot of air to move!" Balance Sitting Static: Good Sitting Dynamic: Good Standing Static: Fair Standing Dynamic: Fair Treatment Gait in the mendosa way; pt up in chair post treatment with needs met. Assessment/Needs Pt presents with unsteady transfers and gait at times with decreased functional activity tolerance. He will benefit from short term PT to work on functional strength and mobility to allow him to return home as he was before. Rehab Potential: Good PT Carton Machine Operator Goals Carton Machine Operator Goals PT Carton Machine Operator Goals Time Frame: Feb 24, 2017 Transfers (B,C,W/C) (FIM): 6 Gait (FIM): 6 Gait distance (FIM): 3=150 ft Gait Assistive Device: Cane Single Point PT Plan Problem List Problem List: Activity Tolerance, Functional Strength, Safety, Balance, Gait, Transfer, Bed Mobility Treatment/Plan Treatment Plan: Continue Plan of Care Treatment Plan: Bed Mobility, Education, Functional Activity Isaac, Functional Strength, Gait, Safety, Therapeutic Exercise, Transfers Treatment Duration: Feb 24, 2017 Frequency: 6 times per week Estimated Hrs Per Day: .25 hour per day Patient and/or Family Agrees t: Yes Safety Risks/Education Patient Education: Transfer Techniques, Safety Issues Teaching Recipient: Patient Teaching Methods: Demonstration, Discussion Response to Teaching: Reinforcement Needed Time/GCodes Time In: 1435 Time Out: 1500 Total Billed Treatment Time: 25 Total Billed Treatment visit EVM 25 PErsonal factors: weight, arthritis examination; SBA with gait; SBA with transfers; limited functional activitiy tolerance Presentation: Evolving due to current hospital stay. HIEU DEL CASTILLO PT Feb 17, 2017 15:19
[2017-02-17 16:00] VITALS: BP 120/68
[2017-02-17] MEDS: PIPERACILLIN SODIUM/TAZOBACTAM 4.5 GM in NS (IVPB) 100 ML IV SCH ×2 (16:39→23:40)
[2017-02-17] MEDS ORDERED: TROUGH ORDER-PHARMACY XX NR (17:00)
[2017-02-17 19:49] VITALS: BP 138/68
[2017-02-17] MEDS: meTOproloL SUCCINATE 50 MG (TOPROL XL) TAB PO SCH (20:32)
[2017-02-17] MEDS: RIVAROXABAN 20 MG TABLET (XARELTO) PO SCH (20:32)
[2017-02-18] VITALS: BP 125/79
[2017-02-18] MEDS: RT-ALBUTEROL/IPRATROPIUM 3 ML (DUONEB) VIAL INH SCH ×6 (01:59→21:38)
[2017-02-18 04:00] VITALS: BP 114/73
[2017-02-18] MEDS: VANCOMYCIN 1500 MG/NS 500 ML IVPB IV SCH ×4 (05:30→17:35)
[2017-02-18] MEDS: NS IV 1000 ML 1,000 ML IV SCH (05:30)
[2017-02-18] MEDS: KCL 20 MEQ TAB (K-DUR) PO SCH (06:46)
[2017-02-18] MEDS: LACTOBACILLUS Acidoph/Bulgar (LACTINEX/FLORANEX) TAB PO SCH ×3 (06:47→17:34)
[2017-02-18 06:57] LABS: BASOPHILS # (AUTO) 0.1 10^3/uL (0.0-0.1); BASOPHILS % (AUTO) 1 % (0-10); EOSINOPHILS # (AUTO) 0.3 10^3/uL (0.0-0.3); EOSINOPHILS % (AUTO) 3 % (0-10); HEMATOCRIT 40 % (40-54); HEMOGLOBIN 13.7 G/DL (13.3-17.7); LYMPHOCYTES # (AUTO) 1.8 X 10^3 (1.0-4.0); LYMPHOCYTES % (AUTO) 19 % (12-44); MEAN CORPUSCULAR HEMOGLOBIN 32 PG (25-34); MEAN CORPUSCULAR HGB CONC 34 G/DL (32-36); MEAN CORPUSCULAR VOLUME 94 FL (80-99); MEAN PLATELET VOLUME 10.8 FL (7.4-10.4); MONOCYTES # (AUTO) 1.2 X 10^3 (0.0-1.0); MONOCYTES % (AUTO) 12 % (0-12); NEUTROPHILS # (AUTO) 6.3 X 10^3 (1.8-7.8); NEUTROPHILS % (AUTO) 66 % (42-75); PLATELET COUNT 176 10^3/uL (130-400); RED BLOOD COUNT 4.28 10^6/uL (4.35-5.85); RED CELL DISTRIBUTION WIDTH 13.5 % (10.0-14.5); WHITE BLOOD COUNT 9.6 10^3/uL (4.3-11.0)
[2017-02-18 07:19] LABS: ALANINE AMINOTRANSFERASE 40 U/L (0-55); ALKALINE PHOSPHATASE 70 U/L (40-136); BILIRUBIN,TOTAL 0.9 MG/DL (0.1-1.0); BUN/CREATININE RATIO 14; CALCIUM 8.1 MG/DL (8.5-10.1); CARBON DIOXIDE 19 MMOL/L (21-32); CHLORIDE 110 MMOL/L (98-107); CREATININE SERUM 1.05 MG/DL (0.60-1.30); GFR ESTIMATED > 60; GLUCOSE 107 MG/DL (70-105); POTASSIUM 4.2 MMOL/L (3.6-5.0); SODIUM 139 MMOL/L (135-145); TOTAL PROTEIN 4.9 GM/DL (6.4-8.2)
[2017-02-18 07:46] VITALS: BP 128/89
[2017-02-18] MEDS: PANTOPRAZOLE 40 MG (PROTONIX) TAB PO SCH (09:20)
[2017-02-18] MEDS: meTOproloL SUCCINATE 50 MG (TOPROL XL) TAB PO SCH ×2 (09:20→21:09)
[2017-02-18] MEDS: PIPERACILLIN SODIUM/TAZOBACTAM 4.5 GM in NS (IVPB) 100 ML IV SCH ×3 (09:20→19:53)
[2017-02-18] MEDS: ENALAPRIL 10 MG (VASOTEC) TAB PO SCH (09:21)
--- NOTE | 2017-02-18 10:40 | Physical Therapy Daily Note ---
PT Daily Note-Current Subjective Patient agrees to PT. He is up independent in room. Pain Numeric Pain Scale: 0-No Pain Location: No Pain Reported Mental Status Patient Orientation: Normal For Age Attachments: IV Transfers Functional [place] Measure 0=Not Assessed/NA 4=Minimal Assistance 1=Total Assistance 5=Supervision or Setup 2=Maximal Assistance 6=Modified [place] 3=Moderate Assistance 7=Complete IndependenceIRFPAI Quality Coding Scale 6 Independent with activity with or without an assistive device 5 Patient requires set up or clean up by helper. Patient completes activity by themselves 4 Supervision or touching assist (CGA). [place] provide cues , steadying assist 3 The helper provides less than half the effort to complete the activity 2 The helper provides more than half the effort to complete the activity 1 Dependent. The helper does all the effort to complete an activity 7 Patient refused to complete or attempt activity 9 The patient did not perform the activity before the current illness or injury 88 Not attempted due to Medical conditions or safety concerns Transfers (B, C, W/C) (FIM): 6 Scootin Sit to/from Stand: 6 Weight Bearing Right Lower Extremity: Right Full Weight Bearing Left Lower Extremity: Left Full Weight Bearing Gait Training Gait (FIM): 6 Distance (FIM): 3=150 ft Distance: 500' Gait Level of Assist: 6 Gait Assistive Device: Cane Single Point WBOS, functional gait sequence Assessment Patient is currently at [facility] with all gross motor skills and has been instructed to be up ad kerri in hallway ambulating. Patient and spouse agree. PT Precision Instrument Maker Goals Correction Goals PT Precision Instrument Maker Goals Time Frame: Feb 24, 2017 Transfers (B,C,W/C) (FIM): 6 Gait (FIM): 6 Gait distance (FIM): 3=150 ft Gait Assistive Device: Cane Single Point PT Plan Treatment/Plan Treatment Plan: Discontinue PT, goals met Treatment Plan: Bed Mobility, Education, Functional Activity Isaac, Functional Strength, Gait, Safety, Therapeutic Exercise, Transfers Treatment Duration: Feb 24, 2017 Frequency: 6 times per week Estimated Hrs Per Day: .25 hour per day Patient and/or Family Agrees t: Yes Discharge Recommendations Therapy D/C Recommendations: Home w/ Family Support Time/GCodes Time In: 955 Time Out: 1010 Total Billed Treatment Time: 15 Total Billed Treatment 1 visit FA 15 min JAY HOOPER PT Feb 18, 2017 10:40
--- NOTE | 2017-02-18 11:42 | Progress Note-Hospitalist ---
Progress Note HPI/CC on Admission CC: Severe abdominal wall abscess with leukocytosis and fever HPI: This is a 71-year-old white male former clinic patient of Dr. Aguilar and regular follow-ups with Dr. Vázquez for atrial fibrillation and CAD who presents to the ER with complaints of abdominal wall erythema and pain. He does have a history of gluteal abscess that was debridement multiple times and eventually healed after surgical excision in the years past who was found to have fever leukocytosis and severe abdominal wall cellulitis with hardened part of the skin high risk for abscess formation. He reports his pain is controlled currently I reconciled all of his home medications and I will consult Dr. Ron to evaluate the need for incision and drainage if that comes to be an issue. He overall is doing well his brought his see Pap sheet so he can use it tonight and I do update him on the possibility of remaining in the hospital for a couple more days for IV antibiotics. He was placed on vancomycin and clindamycin I did broaden out the antibiotic spectrum to Zosyn and discontinue the clindamycin and maintaining the vancomycin due to the severity of the cellulitis. Progress Notes/Assess & Plan Date Seen 02/18/17 Time Seen by Provider: 10:45 Admission Dx/Process Severe abdominal wall abscess high risk for abscess formation Diagonsis/Assessment & Plan Patient doing much better and Dr. Ron does not think that this will have to be drained and it is not an abscess at this current time. Tolerating vancomycin and Zosyn Once to go home soon Will Hep-Lock IV fluids since it is going at 150 mL an hour and history of volume overload so we'll discontinue that Pain is controlled Creatinine levels show no evidence of renal dysfunction. No fever, vital signs stable, pleasant, in shower, at shower side Regular rate and rhythm, clear to auscultation bilaterally but diminished in the bases Abdominal wall cellulitis much improved Severe abdominal wall abscess high risk for abscess formation Plan: Broadened antibiotic coverage to Zosyn and vancomycin Appreciate consult by Dr. Ron Home medications have been restarted CPAP use Pain control HLIVF Diagnosis/Problems Diagnosis/Problems (1) Cellulitis, abdominal wall Status: Acute Assessment & Plan: Zosyn and Vanc (2) Atrial fibrillation Status: Chronic Qualifiers: Qualified Codes: I48.2 - Chronic atrial fibrillation (3) Obstructive sleep apnea Status: Chronic Assessment & Plan: Maintain CPAP (4) Obesity Status: Chronic Qualifiers: Qualified Codes: E66.9 - Obesity, unspecified (5) Smoker Status: Chronic Assessment & Plan: Smoking cessation YULIANA MARTIN DO Feb 18, 2017 11:42
[2017-02-18 12:00] VITALS: BP 141/96
[2017-02-18 15:46] VITALS: BP 127/81
--- NOTE | 2017-02-18 16:23 | Progress Note (SOAP) ---
Subjective Date Seen by Provider: Feb 18, 2017 Time Seen by Provider: 16:00 Subjective/Events-last exam doing better. less pain and redness. no fluctuance to indicate abscess. no fever /chills. Objective Exam Vital Signs Date Time Temp Pulse Resp B/P (MAP) Pulse Ox O2 Delivery O2 Flow Rate FiO2 02/18/17 15:46 97.9 60 20 127/81 (96) 95 Room Air 02/18/17 14:31 96 Room Air 02/18/17 12:00 97.9 95 20 141/96 (111) 97 NIV CPAP 02/18/17 10:25 96 Room Air 02/18/17 09:00 Room Air 02/18/17 07:46 98.0 96 22 128/89 (102) 96 NIV CPAP 02/18/17 04:00 97.7 71 18 114/73 (87) 96 NIV CPAP 02/18/17 00:00 97.3 107 18 125/79 (94) 95 NIV CPAP 02/17/17 21:00 Room Air 02/17/17 19:49 98.6 98 18 138/68 (91) 94 Room Air 02/17/17 19:09 96 Room Air I & O 02/18/17 06:59 Intake Total 7210 ml Output Total 5025 ml Balance 2185 ml Capillary Refill : Less Than 3 Seconds General Appearance: No Apparent Distress HEENT: PERRL/EOMI Neck: Full Range of Motion Respiratory: Chest Non Tender, Decreased Breath Sounds Cardiovascular: Regular Rate, Rhythm Gastrointestinal: normal bowel sounds, non tender, soft Extremity: Normal Capillary Refill Neurologic/Psychiatric: Alert, Oriented x3 Skin: Erythema Lymphatic: No Adenopathy Results Lab Laboratory Tests 02/17/17 17:20: Vancomycin Level Trough 12.0 02/18/17 06:15: White Blood Count 9.6, Red Blood Count 4.28L, Hemoglobin 13.7, Hematocrit 40, Mean Corpuscular Volume 94, Mean Corpuscular Hemoglobin 32, Mean Corpuscular Hemoglobin Concent 34, Red Cell Distribution Width 13.5, Platelet Count 176, Mean Platelet Volume 10.8H, Neutrophils (%) (Auto) 66, Lymphocytes (%) (Auto) 19 , Monocytes (%) (Auto) 12, Eosinophils (%) (Auto) 3, Basophils (%) (Auto) 1, Neutrophils # (Auto) 6.3, Lymphocytes # (Auto) 1.8, Monocytes # (Auto) 1.2H, Eosinophils # (Auto) 0.3, Basophils # (Auto) 0.1, Sodium Level 139, Potassium Level 4.2, Chloride Level 110H, Carbon Dioxide Level 19L, Anion Gap 10, Blood Urea Nitrogen 15, Creatinine 1.05, Estimat Glomerular Filtration Rate > 60, BUN/ Creatinine Ratio 14, Glucose Level 107H, Calcium Level 8.1L, Total Bilirubin 0.9 , Aspartate Amino Transf (AST/SGOT) 27, Alanine Aminotransferase (ALT/SGPT) 40, Alkaline Phosphatase 70, Total Protein 4.9L, Albumin 3.0L Microbiology 02/16/17 Blood Culture - Preliminary, Resulted No growth Assessment/Plan Assessment/Plan Assess & Plan/Chief Complaint abdominal wall cellulitis. continue IV abx. PO augmentin on d/c for 7 days probably tomorrow. Clinical Quality Measures DVT/VTE Risk/Contraindication: Risk Factor Score Per Nursin RFS Level Per Nursing on Admit: 4+=Very High KIRBY BALDWIN MD Feb 18, 2017 16:22
[2017-02-18] MEDS: RIVAROXABAN 20 MG TABLET (XARELTO) PO SCH (21:09)
[2017-02-19 00:27] VITALS: BP 138/90
[2017-02-19] MEDS: RT-ALBUTEROL/IPRATROPIUM 3 ML (DUONEB) VIAL INH SCH ×3 (01:58→10:56)
[2017-02-19] MEDS: PIPERACILLIN/TAZOBACTAM 4.5 GM/NS100 ML IVPB IV SCH ×4 (04:10→11:49)
[2017-02-19] MEDS: LACTOBACILLUS Acidoph/Bulgar (LACTINEX/FLORANEX) TAB PO SCH ×2 (06:36→11:37)
[2017-02-19] MEDS: KCL 20 MEQ TAB (K-DUR) PO SCH (06:36)
[2017-02-19] MEDS: VANCOMYCIN 1500 MG/NS 500 ML IVPB IV SCH ×2 (06:36)
[2017-02-19 07:04] LABS: BASOPHILS # (AUTO) 0.1 10^3/uL (0.0-0.1); BASOPHILS % (AUTO) 1 % (0-10); EOSINOPHILS # (AUTO) 0.4 10^3/uL (0.0-0.3); EOSINOPHILS % (AUTO) 4 % (0-10); HEMATOCRIT 36 % (40-54); HEMOGLOBIN 13.5 G/DL (13.3-17.7); LYMPHOCYTES # (AUTO) 2.1 X 10^3 (1.0-4.0); LYMPHOCYTES % (AUTO) 23 % (12-44); MEAN CORPUSCULAR HEMOGLOBIN 32 PG (25-34); MEAN CORPUSCULAR HGB CONC 38 G/DL (32-36); MEAN CORPUSCULAR VOLUME 86 FL (80-99); MEAN PLATELET VOLUME 9.9 FL (7.4-10.4); MONOCYTES % (AUTO) 11 % (0-12); NEUTROPHILS # (AUTO) 5.5 X 10^3 (1.8-7.8); NEUTROPHILS % (AUTO) 61 % (42-75); PLATELET COUNT 190 10^3/uL (130-400); RED CELL DISTRIBUTION WIDTH 12.7 % (10.0-14.5)
[2017-02-19 07:24] LABS: ALANINE AMINOTRANSFERASE 40 U/L (0-55); ALBUMIN 3.1 GM/DL (3.2-4.5); ALKALINE PHOSPHATASE 74 U/L (40-136); BILIRUBIN,TOTAL 0.7 MG/DL (0.1-1.0); BUN/CREATININE RATIO 13; CALCIUM 8.5 MG/DL (8.5-10.1); CARBON DIOXIDE 18 MMOL/L (21-32); CHLORIDE 110 MMOL/L (98-107); GFR ESTIMATED > 60; GLUCOSE 103 MG/DL (70-105); POTASSIUM 4.4 MMOL/L (3.6-5.0); SODIUM 137 MMOL/L (135-145); TOTAL PROTEIN 6.2 GM/DL (6.4-8.2)
[2017-02-19 08:00] VITALS: BP 139/83
[2017-02-19] MEDS: ENALAPRIL 10 MG (VASOTEC) TAB PO SCH (09:20)
[2017-02-19] MEDS: meTOproloL SUCCINATE 50 MG (TOPROL XL) TAB PO SCH (09:20)
[2017-02-19] MEDS: PANTOPRAZOLE 40 MG (PROTONIX) TAB PO SCH (09:20)
[2017-02-19] MEDS ORDERED: AMOX-358 PO (10:46)
--- NOTE | 2017-02-19 11:51 | Discharge Summary-Hospitalist ---
Diagnosis/Chief Complaint Date of Admission Feb 16, 2017 at 14:22 Date of Discharge Discharge Date: Feb 19, 2017 Admission Diagnosis Severe abdominal wall abscess high risk for abscess formation Discharge Diagnosis Severe abdominal wall abscess high risk for abscess formation (1) Cellulitis, abdominal wall Status: Acute Assessment & Plan: Zosyn and Vanc (2) Atrial fibrillation Status: Chronic (3) Obstructive sleep apnea Status: Chronic Assessment & Plan: Maintain CPAP (4) Obesity Status: Chronic (5) Smoker Status: Chronic Assessment & Plan: Smoking cessation Discharge Summary Discharge Physical Examination Allergies: Coded Allergies: codeine (Unverified Allergy, Intermediate, DIZZYNESS, FAINTING, 07/16/14) Vitals & I&Os Vital Signs Date Time Temp Pulse Resp B/P (MAP) Pulse Ox O2 Delivery O2 Flow Rate FiO2 02/19/17 11:00 96 02/19/17 08:00 97.9 88 22 139/83 (101) Room Air 02/17/17 14:17 21 Hospital Course Hospital course: Patient had an uneventful hospital course he was placed on vancomycin and Zosyn broad antibiotic spectrum due to the severity of the abdominal wall cellulitis at high risk for abscess formation and Dr. Ron was consulted to assess the area to not have abscess formation at this time. He tolerating antibiotics well placed on breathing treatments and maintain all home medications after IV fluids were initiated then stopped on the second hospital day. At the day of discharge she felt good the pinkness of the cellulitis remained but no longer hot to touch not tender there was hardening of the tissue but that was expected to resolve with time. Dr. Ron agreed for discharge and he will be on 5 more days of Augmentin and close follow-up to [facility]. Labs (last 24 hrs) Laboratory Tests 02/19/17 06:32: White Blood Count 9.0, Red Blood Count 4.20L, Hemoglobin 13.5, Hematocrit 36L, Mean Corpuscular Volume 86, Mean Corpuscular Hemoglobin 32, Mean Corpuscular Hemoglobin Concent 38H, Red Cell Distribution Width 12.7, Platelet Count 190, Mean Platelet Volume 9.9, Neutrophils (%) (Auto) 61, Lymphocytes (%) (Auto) 23, Monocytes (%) (Auto) 11, Eosinophils (%) (Auto) 4, Basophils (%) (Auto) 1, Neutrophils # (Auto) 5.5, Lymphocytes # (Auto) 2.1, Monocytes # (Auto) 1.0, Eosinophils # (Auto) 0.4H, Basophils # (Auto) 0.1, Sodium Level 137, Potassium Level 4.4, Chloride Level 110H, Carbon Dioxide Level 18L, Anion Gap 9, Blood Urea Nitrogen 13, Creatinine 1.00, Estimat Glomerular Filtration Rate > 60, BUN/ Creatinine Ratio 13, Glucose Level 103, Calcium Level 8.5, Total Bilirubin 0.7, Aspartate Amino Transf (AST/SGOT) 23, Alanine Aminotransferase (ALT/SGPT) 40, Alkaline Phosphatase 74, Total Protein 6.2L, Albumin 3.1L Microbiology 02/16/17 Blood Culture - Preliminary, Resulted No growth Pending Labs Laboratory Tests 02/19/17 06:32: White Blood Count 9.0, Red Blood Count 4.20, Hemoglobin 13.5, Hematocrit 36, Mean Corpuscular Volume 86, Mean Corpuscular Hemoglobin 32, Mean Corpuscular Hemoglobin Concent 38, Red Cell Distribution Width 12.7, Platelet Count 190, Mean Platelet Volume 9.9, Neutrophils (%) (Auto) 61, Lymphocytes (%) (Auto) 23, Monocytes (%) (Auto) 11, Eosinophils (%) (Auto) 4, Basophils (%) (Auto) 1, Neutrophils # (Auto) 5.5, Lymphocytes # (Auto) 2.1, Monocytes # (Auto) 1.0, Eosinophils # (Auto) 0.4, Basophils # (Auto) 0.1, Sodium Level 137, Potassium Level 4.4, Chloride Level 110, Carbon Dioxide Level 18, Anion Gap 9, Blood Urea Nitrogen 13, Creatinine 1.00, Estimat Glomerular Filtration Rate > 60, BUN/ Creatinine Ratio 13, Glucose Level 103, Calcium Level 8.5, Total Bilirubin 0.7, Aspartate Amino Transf (AST/SGOT) 23, Alanine Aminotransferase (ALT/SGPT) 40, Alkaline Phosphatase 74, Total Protein 6.2, Albumin 3.1 Discharge Home Medications: Active Scripts Active Augmentin 875-125 Tablet (Amoxicillin/Potassium Clav) 1 Each Tablet 1 Each PO BID Reported Metoprolol Succinate 50 Mg Tab.er.24h 50 Mg PO BID Potassium Chloride 20 Meq Tablet.er 20 Meq PO DAILY Enalapril Maleate 20 Mg Tablet 20 Mg PO DAILY Pantoprazole Sodium 40 Mg Tablet.dr 40 Mg PO DAILY Xarelto (Rivaroxaban) 20 Mg Tablet 20 Mg PO HS Instructions to patient/family Please see electronic discharge instructions given to patient. Clinical Quality Measures DVT/VTE Risk/Contraindication: Risk Factor Score Per Nursin RFS Level Per Nursing on Admit: 4+=Very High Problem Qualifiers (1) Atrial fibrillation: Atrial fibrillation type: chronic Qualified Codes: I48.2 - Chronic atrial fibrillation (2) Obesity: Obesity type: unspecified obesity type Obesity classification: unspecified obesity classification Serious obesity comorbidity presence: without serious comorbidity Qualified Codes: E66.9 - Obesity, unspecified YULIANA MARTIN DO Feb 19, 2017 11:51
--- NOTE | 2017-02-19 13:11 | Progress Note (SOAP) ---
Subjective Date Seen by Provider: Feb 19, 2017 Time Seen by Provider: 12:00 Subjective/Events-last exam doing better. less pain and burning abdominal wall. no fever/chills. cellulitis improving. Objective Exam Vital Signs Date Time Temp Pulse Resp B/P (MAP) Pulse Ox O2 Delivery O2 Flow Rate FiO2 02/19/17 11:00 96 02/19/17 08:00 97.9 88 22 139/83 (101) 96 Room Air 02/19/17 06:34 95 02/19/17 01:58 NIV CPAP 02/19/17 00:27 98.5 90 18 138/90 (106) 98 Room Air 02/18/17 21:38 NIV CPAP 02/18/17 21:00 Room Air 02/18/17 18:57 97 Room Air 02/18/17 15:46 97.9 60 20 127/81 (96) 95 Room Air 02/18/17 14:31 96 Room Air I & O 02/19/17 06:59 Intake Total 4760 ml Output Total 1250 ml Balance 3510 ml Capillary Refill : Less Than 3 Seconds General Appearance: No Apparent Distress HEENT: PERRL/EOMI Neck: Full Range of Motion Respiratory: Chest Non Tender, Lungs Clear, Normal Breath Sounds Cardiovascular: Regular Rate, Rhythm Gastrointestinal: normal bowel sounds, non tender, soft Extremity: Normal Capillary Refill Neurologic/Psychiatric: Alert, Oriented x3 Skin: Other (moderate abd panus celluliits, improving, no abscess) Lymphatic: No Adenopathy Results Lab Laboratory Tests 02/19/17 06:32: White Blood Count 9.0, Red Blood Count 4.20L, Hemoglobin 13.5, Hematocrit 36L, Mean Corpuscular Volume 86, Mean Corpuscular Hemoglobin 32, Mean Corpuscular Hemoglobin Concent 38H, Red Cell Distribution Width 12.7, Platelet Count 190, Mean Platelet Volume 9.9, Neutrophils (%) (Auto) 61, Lymphocytes (%) (Auto) 23, Monocytes (%) (Auto) 11, Eosinophils (%) (Auto) 4, Basophils (%) (Auto) 1, Neutrophils # (Auto) 5.5, Lymphocytes # (Auto) 2.1, Monocytes # (Auto) 1.0, Eosinophils # (Auto) 0.4H, Basophils # (Auto) 0.1, Sodium Level 137, Potassium Level 4.4, Chloride Level 110H, Carbon Dioxide Level 18L, Anion Gap 9, Blood Urea Nitrogen 13, Creatinine 1.00, Estimat Glomerular Filtration Rate > 60, BUN/ Creatinine Ratio 13, Glucose Level 103, Calcium Level 8.5, Total Bilirubin 0.7, Aspartate Amino Transf (AST/SGOT) 23, Alanine Aminotransferase (ALT/SGPT) 40, Alkaline Phosphatase 74, Total Protein 6.2L, Albumin 3.1L Microbiology 02/16/17 Blood Culture - Preliminary, Resulted No growth Assessment/Plan Assessment/Plan Assess & Plan/Chief Complaint abdominal wall cellulitis. PO augmentin on d/c for 7 days. high protein diet, low sugar/carb with regularly scheduled exercise(150minutes/ week). Clinical Quality Measures DVT/VTE Risk/Contraindication: Risk Factor Score Per Nursin RFS Level Per Nursing on Admit: 4+=Very High KIRBY BALDWIN MD Feb 19, 2017 1:11 pm
[2017-02-19 14:00] VITALS: BP 139/83
--- OUTSIDE RECORDS SUMMARY | 2017-02-20 21:53 | XMS REPORT | Clinical Summary ---
Author Author [facility] Organization [facility] Address Unknown Phone Unavailable Care Team Providers Care Manager Mental Health Name Role Phone PCP Unavailable Source Comments Some departments are not documenting in the electronic medical record. If you do not see the information that you expected, contact Release of Information in the Health Information Management department at [phone] for further assistance in locating additional records.[facility] Allergies Active Allergy Reactions Severity Noted Date [...] fibrillation (HCC) 08/14/2014 Overview: 07/16/14: Echo: [facility]: EF 50%. Left atrium is dilated LA size=4.2 cm. TDS d/t body habitus 07/18/14:KAT/ DCCV: [facility]: EF 60% mild to moderate mitral regurgitation. Unable to maintain NSR after 2 attempts. Loaded with amiodarone bolus then IV drip. 07/19/14: DCCV: [facility]: 3 attempts for conversion to NSR failed Coronary artery disease involving [place] coronary artery 08/14/2014 Overview: 07/17/14: Lexiscan Stress test: [facility]: EF 36% no ischemia or infarction, diffuse LV hypokinesia 08/01/14: Cardiac Cath: [facility]: mild CAD Family History Medical History Relation [...]
--- OUTSIDE RECORDS SUMMARY | 2017-02-20 21:53 | XMS REPORT | Continuity of Care Document ---
Author Author [facility] Organization [facility] Address Unknown Phone Unavailable Allergies Active Description Code Type Severity Reaction Onset Reported/Identified Relationship to Patient Clinical Status Yes codeine [id number] Drug Allergy Moderate DIZZYNESS, GERMAN 07/16/2014 Medications [...] YARA R Ot 716.90 07/26/2014 HÉCTOR BISWAS, AYRA R Ot 724.5 07/26/2014 HÉCTOR BISWAS, YARA [...] BISWAS, YARA R Ot 782.3 07/26/2014 HÉCTOR BIWSAS, YARA R Ot 783.1 07/26/2014 HÉCTOR BISWAS, [...] DOMÍNGUEZ MD Ot 414.01 CORONARY ATHEROSCLEROSIS OF [place] CORON 08/02/2014 JARED DOMÍNGUEZ MD Ot 425.4 [...] Blood erythrocyte morphology finding identification NORMAL NRG Bacterial blood culture - 02/16/17 12:51 Bacterial blood culture NG NRG Blood lactic acid measurement (moles/volume) - 02/16/17 13:21 Blood lactic acid measurement (moles/volume) 1.32 mmol/L 0.50-2.00 Bacterial blood culture - 02/16/17 13:21 Bacterial blood culture NG NRG Complete blood count (CBC) with automated white blood cell (WBC) differential - 02/17/17 10:40 Blood leukocytes automated count (number/volume) 9.9 10*3/uL 4.3-11.0 Blood erythrocytes automated count (number/volume) 4.40 10*6/uL 4.35-5.85 Venous blood hemoglobin measurement (mass/volume) 13.9 g/dL 13.3-17.7 Blood hematocrit (volume fraction) 41 % 40-54 Automated erythrocyte mean corpuscular volume 94 [foz_us] 80-99 Automated erythrocyte mean corpuscular hemoglobin (mass per erythrocyte) 32 pg 25-34 Automated erythrocyte mean corpuscular hemoglobin concentration measurement ( mass/volume) 34 g/dL 32-36 Automated erythrocyte distribution width ratio 13.6 % 10.0-14.5 Automated blood platelet count (count/volume) 145 10*3/uL 130-400 Automated blood platelet mean volume measurement 10.8 [foz_us] 7.4-10.4 Automated blood neutrophils/100 leukocytes 69 % 42-75 Automated blood lymphocytes/100 leukocytes 17 % 12-44 Blood monocytes/100 leukocytes 12 % 0-12 Automated blood eosinophils/100 leukocytes 2 % 0-10 Automated blood basophils/100 leukocytes 0 % 0-10 Blood neutrophils automated count (number/volume) 6.8 10*3 1.8-7.8 Blood lymphocytes automated count (number/volume) 1.7 10*3 1.0-4.0 Blood monocytes automated count (number/volume) 1.2 10*3 0.0-1.0 Automated eosinophil count 0.2 10*3/uL 0.0-0.3 Automated blood basophil count (count/volume) 0.0 10*3/uL 0.0-0.1 Comprehensive metabolic panel - 02/17/17 10:40 Serum or plasma sodium measurement (moles/volume) 137 mmol/L 135-145 Serum or plasma potassium measurement (moles/volume) 4.3 mmol/L 3.6-5.0 Serum or plasma chloride measurement (moles/volume) 107 mmol/L 98-107 Carbon dioxide 20 mmol/L 21-32 Serum or plasma anion gap determination (moles/volume) 10 mmol/L 5-14 Serum or plasma urea nitrogen measurement (mass/volume) 17 mg/dL 7-18 Serum or plasma creatinine measurement (mass/volume) 0.89 mg/dL 0.60-1.30 Serum or plasma urea nitrogen/creatinine mass ratio 19 NRG Serum or plasma creatinine measurement with calculation of estimated glomerular filtration rate > NRG Serum or plasma glucose measurement (mass/volume) 107 mg/dL 70-105 Serum or plasma calcium measurement (mass/volume) 8.2 mg/dL 8.5-10.1 Serum or plasma total bilirubin measurement (mass/volume) 0.8 mg/dL 0.1-1.0 Serum or plasma alkaline phosphatase measurement (enzymatic activity/volume) 86 U/L 40-136 Serum or plasma aspartate aminotransferase measurement (enzymatic activity/ volume) 28 U/L 5-34 Serum or plasma alanine aminotransferase measurement (enzymatic activity/volume ) 38 U/L 0-55 Serum or plasma protein measurement (mass/volume) 6.4 g/dL 6.4-8.2 Serum or plasma albumin measurement (mass/volume) 3.3 g/dL 3.2-4.5 Vancomycin trough - 02/17/17 17:20 Vancomycin trough 12.0 ug/mL 10.0-20.0 Complete blood count (CBC) with automated white blood cell (WBC) differential - 02/18/17 06:15 Blood leukocytes automated count (number/volume) 9.6 10*3/uL 4.3-11.0 Blood erythrocytes automated count (number/volume) 4.28 10*6/uL 4.35-5.85 Venous blood hemoglobin measurement (mass/volume) 13.7 g/dL 13.3-17.7 Blood hematocrit (volume fraction) 40 % 40-54 Automated erythrocyte mean corpuscular volume 94 [foz_us] 80-99 Automated erythrocyte mean corpuscular hemoglobin (mass per erythrocyte) 32 pg 25-34 Automated erythrocyte mean corpuscular hemoglobin concentration measurement ( mass/volume) 34 g/dL 32-36 Automated erythrocyte distribution width ratio 13.5 % 10.0-14.5 Automated blood platelet count (count/volume) 176 10*3/uL 130-400 Automated blood platelet mean volume measurement 10.8 [foz_us] 7.4-10.4 Automated blood neutrophils/100 leukocytes 66 % 42-75 Automated blood lymphocytes/100 leukocytes 19 % 12-44 Blood monocytes/100 leukocytes 12 % 0-12 Automated blood eosinophils/100 leukocytes 3 % 0-10 Automated blood basophils/100 leukocytes 1 % 0-10 Blood neutrophils automated count (number/volume) 6.3 10*3 1.8-7.8 Blood lymphocytes automated count (number/volume) 1.8 10*3 1.0-4.0 Blood monocytes automated count (number/volume) 1.2 10*3 0.0-1.0 Automated eosinophil count 0.3 10*3/uL 0.0-0.3 Automated blood basophil count (count/volume) 0.1 10*3/uL 0.0-0.1 Comprehensive metabolic panel - 02/18/17 06:15 Serum or plasma sodium measurement (moles/volume) 139 mmol/L 135-145 Serum or plasma potassium measurement (moles/volume) 4.2 mmol/L 3.6-5.0 Serum or plasma chloride measurement (moles/volume) 110 mmol/L 98-107 Carbon dioxide 19 mmol/L 21-32 Serum or plasma anion gap determination (moles/volume) 10 mmol/L 5-14 Serum or plasma urea nitrogen measurement (mass/volume) 15 mg/dL 7-18 Serum or plasma creatinine measurement (mass/volume) 1.05 mg/dL 0.60-1.30 Serum or plasma urea nitrogen/creatinine mass ratio 14 NRG Serum or plasma creatinine measurement with calculation of estimated glomerular filtration rate > NRG Serum or plasma glucose measurement (mass/volume) 107 mg/dL 70-105 Serum or plasma calcium measurement (mass/volume) 8.1 mg/dL 8.5-10.1 Serum or plasma total bilirubin measurement (mass/volume) 0.9 mg/dL 0.1-1.0 Serum or plasma alkaline phosphatase measurement (enzymatic activity/volume) 70 U/L 40-136 Serum or plasma aspartate aminotransferase measurement (enzymatic activity/ volume) 27 U/L 5-34 Serum or plasma alanine aminotransferase measurement (enzymatic activity/volume ) 40 U/L 0-55 Serum or plasma protein measurement (mass/volume) 4.9 g/dL 6.4-8.2 Serum or plasma albumin measurement (mass/volume) 3.0 g/dL 3.2-4.5 Complete blood count (CBC) with automated white blood cell (WBC) differential - 02/19/17 06:32 Blood leukocytes automated count (number/volume) 9.0 10*3/uL 4.3-11.0 Blood erythrocytes automated count (number/volume) 4.20 10*6/uL 4.35-5.85 Venous blood hemoglobin measurement (mass/volume) 13.5 g/dL 13.3-17.7 Blood hematocrit (volume fraction) 36 % 40-54 Automated erythrocyte mean corpuscular volume 86 [foz_us] 80-99 Automated erythrocyte mean corpuscular hemoglobin (mass per erythrocyte) 32 pg 25-34 Automated erythrocyte mean corpuscular hemoglobin concentration measurement ( mass/volume) 38 g/dL 32-36 Automated erythrocyte distribution width ratio 12.7 % 10.0-14.5 Automated blood platelet count (count/volume) 190 10*3/uL 130-400 Automated blood platelet mean volume measurement 9.9 [foz_us] 7.4-10.4 Automated blood neutrophils/100 leukocytes 61 % 42-75 Automated blood lymphocytes/100 leukocytes 23 % 12-44 Blood monocytes/100 leukocytes 11 % 0-12 Automated blood eosinophils/100 leukocytes 4 % 0-10 Automated blood basophils/100 leukocytes 1 % 0-10 Blood neutrophils automated count (number/volume) 5.5 10*3 1.8-7.8 Blood lymphocytes automated count (number/volume) 2.1 10*3 1.0-4.0 Blood monocytes automated count (number/volume) 1.0 10*3 0.0-1.0 Automated eosinophil count 0.4 10*3/uL 0.0-0.3 Automated blood basophil count (count/volume) 0.1 10*3/uL 0.0-0.1 Comprehensive metabolic panel - 02/19/17 06:32 Serum or plasma sodium measurement (moles/volume) 137 mmol/L 135-145 Serum or plasma potassium measurement (moles/volume) 4.4 mmol/L 3.6-5.0 Serum or plasma chloride measurement (moles/volume) 110 mmol/L 98-107 Carbon dioxide 18 mmol/L 21-32 Serum or plasma anion gap determination (moles/volume) 9 mmol/L 5-14 Serum or plasma urea nitrogen measurement (mass/volume) 13 mg/dL 7-18 Serum or plasma creatinine measurement (mass/volume) 1.00 mg/dL 0.60-1.30 Serum or plasma urea nitrogen/creatinine mass ratio 13 NRG Serum or plasma creatinine measurement with calculation of estimated glomerular filtration rate > NRG Serum or plasma glucose measurement (mass/volume) 103 mg/dL 70-105 Serum or plasma calcium measurement (mass/volume) 8.5 mg/dL 8.5-10.1 Serum or plasma total bilirubin measurement (mass/volume) 0.7 mg/dL 0.1-1.0 Serum or plasma alkaline phosphatase measurement (enzymatic activity/volume) 74 U/L 40-136 Serum or plasma aspartate aminotransferase measurement (enzymatic activity/ volume) 23 U/L 5-34 Serum or plasma alanine aminotransferase measurement (enzymatic activity/volume ) 40 U/L 0-55 Serum or plasma protein measurement (mass/volume) 6.2 g/dL 6.4-8.2 Serum or plasma albumin measurement (mass/volume) 3.1 g/dL 3.2-4.5 Encounters ACCT No. Visit Date/Time Discharge Status Pt. Type Provider Facility Loc./Unit Complaint [id number] 09/01/2016 11:38:00 09/01/2016 23:59:59 CLS Outpatient MATT BISWAS [facility] CARD I50.22 I10 E78.2 I48.1 [id number] 08/19/2016 09:30:00 08/19/2016 23:59:59 CLS Preadmit aNsh CHACKO MD [facility] CARD PERSISTENT AFIB [id number] 06/12/2016 08:46:00 08/18/2016 00:01:00 DIS Outpatient Nash CHACKO MD [facility] CARD PERSISTENT AFIB [id number] 03/27/2016 08:28:00 03/27/2016 23:59:59 CLS Outpatient Nash CHACKO MD [facility] CARD PERSISTENT AFIB [id number] 08/01/2014 07:43:00 08/02/2014 09:44:00 DIS Outpatient CATRACHITA BISWAS, JARED Byrd [facility] CATH CP,AFIB,HTN,HLP [id number] 07/18/2014 13:58:00 07/19/2014 16:45:00 DIS Inpatient HÉCTOR BISWAS, YARA Linton [facility] CSD BRACHYCARDIA,CP,DYSPNEA [id number] 02/16/2017 12:33:00 Document Registration
== END 2017-02-19 14:00 | disposition home or self-care (01) | DRG 603 ==
LOC: EDUNIT# 11:07 → ER 11:09 → 4TH 14:22 → INTOOBSV 14:22 → UNDOADMOB 14:22 → 4TH 14:22 → OBSVTOIN 14:22 → UNDODISIN 02-19 14:00
PROVIDERS: ADMIT Internal Medicine; ATTEND Internal Medicine
DX: L02.211 Cutaneous abscess of abdominal wall (principal); I48.2 Chronic atrial fibrillation; G47.33 Obstructive sleep apnea (adult) (pediatric); E66.9 Obesity, unspecified; F17.210 Nicotine dependence, cigarettes, uncomplicated; I10 Essential (primary) hypertension; E78.00 Pure hypercholesterolemia, unspecified; I25.10 Atherosclerotic heart disease of native coronary artery without angina pectoris; Z96.651 Presence of right artificial knee joint; Z88.5 Allergy status to narcotic agent
CPT/HCPCS: 36415; 80053; 80202; 83605; 85007; 85025; 85027; 86141; 87040; 94640; 94760; 96361; 96365; 96367

== ENCOUNTER 2019-01-04 06:20 | Inpatient (IN) | payer MEDICARE ==
[~2019-01-04] VITALS: Ht 177 cm; Wt 139.0 kg
[~2019-01-04 06:20] MED LIST changes: +AMOX-358 PO; +METO-370 PO; +PANT40TA3 PO; +POTA-51 PO
[2019-01-04 06:54] LABS: CLARITY,URINE CLEAR; GLUCOSE, URINE (UA) NEGATIVE (NEGATIVE); KETONES,URINE 1+ (NEGATIVE); LEUKOCYTE ESTERASE ,URINE NEGATIVE (NEGATIVE); NITRITE,URINE POSITIVE (NEGATIVE); PROTEIN,URINE 2+ (NEGATIVE)
[2019-01-04 07:10] LABS: COLOR,URINE ORANGE
[2019-01-04 07:11] LABS: BACTERIA,URINE NEGATIVE /HPF; BILIRUBIN,URINE 2+ (NEGATIVE); RBC,URINE 0-2 /HPF; SQUAMOUS EPITHELIAL CELL,UR RARE /HPF
[2019-01-04] MEDS ORDERED: NS IV 1000 ML 1,000 ML IV ONE (07:46)
[2019-01-04 07:49] LABS: BASOPHILS % (AUTO) 0 % (0-10); EOSINOPHILS % (AUTO) 0 % (0-10); HEMATOCRIT 50 % (40-54); HEMOGLOBIN 16.9 G/DL (13.3-17.7); LYMPHOCYTES # (AUTO) 1.5 X 10^3 (1.0-4.0); LYMPHOCYTES % (AUTO) 9 % (12-44); MEAN CORPUSCULAR HEMOGLOBIN 32 PG (25-34); MEAN CORPUSCULAR HGB CONC 34 G/DL (32-36); MEAN CORPUSCULAR VOLUME 94 FL (80-99); MEAN PLATELET VOLUME 10.2 FL (7.4-10.4); MONOCYTES # (AUTO) 2.4 X 10^3 (0.0-1.0); MONOCYTES % (AUTO) 14 % (0-12); NEUTROPHILS # (AUTO) 13.5 X 10^3 (1.8-7.8); NEUTROPHILS % (AUTO) 77 % (42-75); PLATELET COUNT 187 10^3/uL (130-400); RED CELL DISTRIBUTION WIDTH 13.8 % (10.0-14.5); WHITE BLOOD COUNT 17.4 10^3/uL (4.3-11.0)
[2019-01-04] MEDS ORDERED: ONDANSETRON 4 MG/2 ML (SDV) Z0FRAN IVP ONE (08:00)
[2019-01-04] MEDS ORDERED: FAMOTIDINE 20MG/2ML IV (PEPCID) IVP ONE (08:00)
[2019-01-04] MEDS ORDERED: ANTACID SUSP 30 ML UDC (MYLANTA) PO ONE (08:00)
[2019-01-04] MEDS ORDERED: LIDOCAINE 2% VISCOUS 15 ML UDC PO ONE (08:00)
[2019-01-04 08:15] LABS: ALBUMIN 3.8 GM/DL (3.2-4.5); BILIRUBIN,TOTAL 2.1 MG/DL (0.1-1.0); CALCIUM 9.1 MG/DL (8.5-10.1); CREATININE SERUM 1.25 MG/DL (0.60-1.30); POTASSIUM 4.3 MMOL/L (3.6-5.0); TOTAL PROTEIN 7.6 GM/DL (6.4-8.2)
[2019-01-04 08:23] LABS: BAND NEUTROPHILS 4 %; LYMPHOCYTES % (MANUAL) 8 %; MONOCYTES % (MANUAL) 8 %; NEUTROPHILS % (MANUAL) 80 %; RBC MORPH NORMAL
--- NOTE | 2019-01-04 08:35 | NUR ---
Pt's temp 37.6 at this time. Pt reports GI cocktail made throat numb, but has not helped with stomach pain.
[2019-01-04] MEDS ORDERED: HOLD METFORMIN - RECEIVED CONTRAST 20 ML VIAL IV SCH (09:00)
[2019-01-04] MEDS ORDERED: IOHEXOL 350 MG/ML 100 ML (OMNIPAQUE 350) VIAL IV ONE (09:00)
[2019-01-04] MEDS ORDERED: NS 100 ML (IVPB) BAG IV ONE (09:00)
--- NOTE | 2019-01-04 09:32 | Diagnostic Imaging Report ---
EXAMINATION: CT Chest, Abdomen and Pelvis with intravenous contrast. TECHNIQUE: Multiple contiguous axial images were obtained through the chest, abdomen and pelvis after the uneventful administration of intravenous contrast. All CT scans use one or more of the following dose optimizing techniques: automated exposure control, MA and/or KvP adjustment based on a patient size and exam type, or iterative reconstruction. HISTORY: Abdominal pain. COMPARISON: 12/02/2006 FINDINGS: The lungs are clear without edema or pneumonia. No pleural effusion or pneumothorax. No suspicious nodules. Heart size is normal. No pericardial effusion. Aorta is normal in caliber. There is no axillary or supraclavicular lymphadenopathy. There is no mediastinal lymphadenopathy. The liver is normal with the exception of segment cyst. There is no biliary ductal dilation. Stones are present in the gallbladder neck. There is gallbladder wall thickening with pericholecystic stranding in keeping with acute cholecystitis. Pancreas is normal. Spleen is normal. Adrenal glands are normal. The kidneys are normal. There is no hydronephrosis. Urinary bladder is normal. There are no dilated loops of large or small bowel. No obstruction or inflammation. No free fluid or air. No abdominal or pelvic lymphadenopathy. Aorta is normal in caliber without aneurysm. There are no suspicious osseous lesions. IMPRESSION: 1. Gallbladder wall thickening with surrounding stranding and stones in the gallbladder neck in keeping with acute cholecystitis. Dictated by: Dictated on workstation # [id number]
--- NOTE | 2019-01-04 09:40 | ED Abdominal Pain ---
General Chief Complaint: Abdominal/GI Problems Stated Complaint: PAIN UPPER ABD PAIN Nursing Triage Note: Pt ambulates with cane to Rm 5 with c/o epigastric pain with burning/cramping sensation x 4 days. Pt has had this issue before but states this time he "can't keep anything down without dry heaving". Pt reports nausea but has not yet vomited. Pt reports no or bowel changes. Pt reports taking Pepto-Bismo without any relief. Sepsis Screen: No Definite Risk Source of Information: Patient Exam Limitations: No Limitations History of Present Illness Date Seen by Provider: Jan 04, 2019 Time Seen by Provider: 06:44 Initial Comments This 73-year-old gentleman presents to the emergency room with a burning sensation in the epigastrium and central abdominal area for 4-5 days. He is quite nauseated but has not been vomiting. He has spasms of pain immediately after eating or drinking. Pain is worse with activity and movement. He had one similar episode that resolved on its own in the remote past. He denies any alcohol use. He has never undergone endoscopy for upper GI evaluation. He is on Xarelto for stroke prevention and Karyna Chadwick is his primary care provider. Allergies and Home Medications Allergies Coded Allergies: codeine (Unverified Allergy, Intermediate, DIZZYNESS, FAINTING, 07/16/14) Home Medications Acetaminophen 500 Mg Tablet, 1,000 MG PO Q4H PRN for PAIN-MILD (1-4), (Reported) Enalapril Maleate 10 Mg Tablet, 10 MG PO DAILY, (Reported) Fluticasone Propionate 9.9 Ml [place].susp, 1 SPRAY NS DAILY PRN for ALLERGIES, (Reported) Furosemide 40 Mg Tablet, 40 MG PO DAILY, (Reported) Metoprolol Tartrate 50 Mg Tablet, 50 MG PO BID, (Reported) Pantoprazole Sodium 40 Mg Tablet.dr, 40 MG PO DAILY, (Reported) Potassium Chloride 20 Meq Tab.er.prt, 20 MEQ PO DAILY, (Reported) Rivaroxaban 20 Mg Tablet, 20 MG PO 1700, (Reported) Patient Home Medication List Home Medication List Reviewed: Yes Review of Systems Review of Systems Constitutional: no symptoms reported EENTM: No Symptoms Reported Respiratory: No Symptoms Reported Cardiovascular: See HPI Gastrointestinal: See HPI Genitourinary: No Symptoms Reported Musculoskeletal: no symptoms reported Skin: no symptoms reported Psychiatric/Neurological: No Symptoms Reported Endocrine: No Symptoms Reported Past Anspgbz-Qdsghr-[place] Hx Past Med/Social Hx: Reviewed Nursing Past Med/Soc Hx Patient Social History Alcohol Use: Rarely Uses Recreational Drug Use: No Smoking Status: Current Someday Smoker Type Used: Cigars Recent Foreign Travel: No Contact w/Someone Who Travel: No Recent Infectious Disease Expo: No Recent Hopitalizations: No Physical Abuse: No Sexual Abuse: No Mistreated: No Fear: No Immunizations Up To Date Tetanus Booster (TDap): More than 5yrs Seasonal Allergies Seasonal Allergies: No Past Medical History Surgeries: Yes (rt knee) Orthopedic Respiratory: Yes Sleep Apnea, COPD Currently Using CPAP: Yes Currently Using BIPAP: No Cardiac: Yes Atrial Fibrillation, Coronary Artery Disease, High Cholesterol, Hypertension Neurological: No Reproductive Disorders: No Sexually Transmitted Disease: No HIV/AIDS: No Genitourinary: No Gastrointestinal: No Musculoskeletal: Yes Arthritis, Back Injury, Chronic Back Pain Endocrine: No Cataract Loss of Vision: Bilateral Hearing Impairment: Hard of Hearing Cancer: No Psychosocial: No Integumentary: No Blood Disorders: No Adverse Reaction/Blood Tranf: No Physical Exam Vital Signs Vital Signs - First Documented 01/04/19 06:30 Temp 36.7 Pulse 102 Resp 18 B/P (MAP) 147/92 (110) Pulse Ox 95 O2 Delivery Room Air Capillary Refill : Less Than 3 Seconds Height/Weight/BMI Height: 5'10.00" Weight: 313lbs. 9.3oz. 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 nml as tested, no motor/sensory deficits, alert, normal mood/affect, oriented x 3 Skin: normal color, warm/dry Focused Exam Lactate Level 01/04/19 10:10: Lactic Acid Level 1.39 Lactic Acid Level Laboratory Tests Test 01/04/19 10:10 Lactic Acid Level 1.39 MMOL/L (0.50-2.00) Progress/Results/Core Measures Results/Orders Lab Results Laboratory Tests Test 01/04/19 06:44 01/04/19 07:40 01/04/19 10:10 Range/Units Urine Color ORANGE Urine Clarity CLEAR Urine pH 6.0 5-9 Urine Specific [place] >=1.030 1.016-1.022 Urine Protein 2+ H NEGATIVE Urine Glucose (UA) NEGATIVE NEGATIVE Urine Ketones 1+ H NEGATIVE Urine Nitrite POSITIVE NEGATIVE Urine Bilirubin 2+ H NEGATIVE Urine Urobilinogen 1.0 < = 1.0 MG/DL Urine Leukocyte Esterase NEGATIVE NEGATIVE Urine RBC (Auto) 1+ H NEGATIVE Urine RBC 0-2 /HPF Urine WBC NONE /HPF Urine Squamous Epithelial Cells RARE /HPF Urine Crystals NONE /LPF Urine Bacteria NEGATIVE /HPF Urine Casts NONE /LPF Urine Mucus NEGATIVE /LPF Urine Culture Indicated YES White Blood Count 17.4 H 4.3-11.0 10^3/uL Red Blood Count 5.29 4.35-5.85 10^6/uL Hemoglobin 16.9 13.3-17.7 G/DL Hematocrit 50 40-54 % Mean Corpuscular Volume 94 80-99 FL Mean Corpuscular Hemoglobin 32 25-34 PG Mean Corpuscular Hemoglobin Concent 34 32-36 G/DL Red Cell Distribution Width 13.8 10.0-14.5 % Platelet Count 187 130-400 10^3/uL Mean Platelet Volume 10.2 7.4-10.4 FL Neutrophils (%) (Auto) 77 H 42-75 % Lymphocytes (%) (Auto) 9 L 12-44 % Monocytes (%) (Auto) 14 H 0-12 % Eosinophils (%) (Auto) 0 0-10 % Basophils (%) (Auto) 0 0-10 % Neutrophils # (Auto) 13.5 H 1.8-7.8 X 10^3 Lymphocytes # (Auto) 1.5 1.0-4.0 X 10^3 Monocytes # (Auto) 2.4 H 0.0-1.0 X 10^3 Eosinophils # (Auto) 0.0 0.0-0.3 10^3/uL Basophils # (Auto) 0.0 0.0-0.1 10^3/uL Neutrophils % (Manual) 80 % Lymphocytes % (Manual) 8 % Monocytes % (Manual) 8 % Band Neutrophils 4 % Blood Morphology Comment NORMAL Sodium Level 137 135-145 MMOL/L Potassium Level 4.3 3.6-5.0 MMOL/L Chloride Level 102 98-107 MMOL/L Carbon Dioxide Level 24 21-32 MMOL/L Anion Gap 11 5-14 MMOL/L Blood Urea Nitrogen 15 7-18 MG/DL Creatinine 1.25 0.60-1.30 MG/DL Estimat Glomerular Filtration Rate 57 BUN/Creatinine Ratio 12 Glucose Level 115 H 70-105 MG/DL Calcium Level 9.1 8.5-10.1 MG/DL Corrected Calcium 9.3 8.5-10.1 MG/DL Total Bilirubin 2.1 H 0.1-1.0 MG/DL Aspartate Amino Transf (AST/SGOT) 14 5-34 U/L Alanine Aminotransferase (ALT/SGPT) 15 0-55 U/L Alkaline Phosphatase 77 40-136 U/L C-Reactive Protein High Sensitivity 26.45 H 0.00-0.50 MG/DL Total Protein 7.6 6.4-8.2 GM/DL Albumin 3.8 3.2-4.5 GM/DL Lipase 7 L 8-78 U/L Lactic Acid Level 1.39 0.50-2.00 MMOL/L My Orders Orders - ASHLEY PITTMAN MD Ua Culture If Indicated (01/04/19 06:48) Urine Culture (01/04/19 06:44) Ed Iv/Invasive Line Start (01/04/19 07:13) Cbc With Automated Diff (01/04/19 07:13) Comprehensive Metabolic Panel (01/04/19 07:13) Hs C Reactive Protein (01/04/19 07:13) Lipase (01/04/19 07:13) Famotidine Injection (Pepcid Injection) (01/04/19 08:00) Ondansetron Injection (Zofran Injectio (01/04/19 08:00) Ns Iv 1000 Ml (Sodium Chloride 0.9%) (01/04/19 07:46) Lidocaine 2% Viscous 15 Ml (Xylocaine Vi (01/04/19 08:00) Antacid Suspension (Mylanta Suspension (01/04/19 08:00) Manual Differential (01/04/19 07:40) Ct Chest/Abdomen/Pelvis W (01/04/19 08:38) Iohexol Injection (Omnipaque 350 Mg/Ml 1 (01/04/19 09:00) Di Iv Start (Assessment) .IV start (01/04/19 08:52) Received Contrast (Hold Metformin- Contr (01/04/19 09:00) Ns (Ivpb) (Sodium Chloride 0.9% Ivpb Bag (01/04/19 09:00) Blood Culture (01/04/19 09:45) Lactic Acid Analyzer (01/04/19 09:45) Piperacillin Sodium/Tazobactam (Zosyn Vi (01/04/19 09:45) Fentanyl Injection (Sublimaze Injection (01/04/19 10:30) Promethazine Injection (Phenergan Injec (01/04/19 10:30) Medications Given in ED Current Medications Medications Dose Ordered Sig/Laura Route Start Time Stop Time Status Last Admin Dose Admin Fentanyl Citrate 50 mcg ONCE ONCE IVP 01/04/19 10:30 01/04/19 10:31 DC 01/04/19 10:30 50 MCG Iohexol 100 ml ONCE ONCE IV 01/04/19 09:00 01/04/19 09:22 DC 01/04/19 09:15 100 ML Piperacillin Sod/ Tazobactam Sod 4.5 gm/Sodium Chloride 100 ml @ 200 mls/hr ONCE ONCE IV 01/04/19 09:45 01/04/19 10:14 DC 01/04/19 10:45 200 MLS/HR Promethazine HCl 12.5 mg ONCE ONCE IVP 01/04/19 10:30 01/04/19 10:31 DC 01/04/19 10:33 12.5 MG Sodium Chloride 100 ml ONCE ONCE IV 01/04/19 09:00 01/04/19 09:22 DC 01/04/19 09:15 80 ML Vital Signs/I&O 01/04/19 06:30 Temp 36.7 Pulse 102 Resp 18 B/P (MAP) 147/92 (110) Pulse Ox 95 O2 Delivery Room Air Blood Pressure Mean: 110 POS Progress Progress Note : Time: 10:57 Progress Note Patient was seen and evaluated. He was initially treated with Zofran, Pepcid, and a GI cocktail. This did not improve his pain. Workup was pursued further with CT of the abdomen and pelvis. This revealed an acute cholecystitis. Blood cultures and lactic acid were obtained and he was started on Zosyn for empiric therapy. Because of infection and Xarelto taken as recently as last night, Dr. Quiñonez anticipate surgery on Wednesday. Dr. Nix has been consulted for medical management and Dr. Esteban has been consulted for cardiac management. A liter of IV fluids has been infused. Pain has been managed with fentanyl and nausea has been managed with Zofran and Phenergan. Diagnostic Imaging Diagonstic Imaging: CT Plain Films/CT/US/NM/MRI: abdomen, pelvis Comments CT abdomen and pelvis viewed by me and report reviewed. See report below: NAME: PASCUAL MAYEN [facility] REC#: [id number] PT STATUS: REG ER : 1945 PHYSICIAN: ASHLEY PITTMAN MD ADMIT DATE: 01/04/19/ER Draft POSDate of Exam:01/04/19 CT CHEST/ABDOMEN/PELVIS W EXAMINATION: CT Chest, Abdomen and Pelvis with intravenous contrast. TECHNIQUE: Multiple contiguous axial images were obtained through the chest, abdomen and pelvis after the uneventful administration of intravenous contrast. All CT scans use one or more of the following dose optimizing techniques: automated exposure control, MA and/or KvP adjustment based on a patient size and exam type, or iterative reconstruction. HISTORY: Abdominal pain. COMPARISON: 12/02/2006 FINDINGS: The lungs are clear without edema or pneumonia. No pleural effusion or pneumothorax. No suspicious nodules. Heart size is normal. No pericardial effusion. Aorta is normal in caliber. There is no axillary or supraclavicular lymphadenopathy. There is no mediastinal lymphadenopathy. The liver is normal with the exception of segment cyst. There is no biliary ductal dilation. Stones are present in the gallbladder neck. There is gallbladder wall thickening with pericholecystic stranding in keeping with acute cholecystitis. Pancreas is normal. Spleen is normal. Adrenal glands are normal. The kidneys are normal. There is no hydronephrosis. Urinary bladder is normal. There are no dilated loops of large or small bowel. No obstruction or inflammation. No free fluid or air. No abdominal or pelvic lymphadenopathy. Aorta is normal in caliber without aneurysm. There are no suspicious osseous lesions. IMPRESSION: 1. Gallbladder wall thickening with surrounding stranding and stones in the gallbladder neck in keeping with acute cholecystitis. Dictated on workstation # [id number] Dict: 01/04/19924 Trans: 01/04/1932 [facility] [id number] Interpreted by: NILESH PIEDRA MD Departure Communication (Admissions) Time/Spoke to Admitting Phy: 09:45 Dr. Quiñonez Impression Primary Impression: Acute cholecystitis Additional Impression: Atrial fibrillation Qualified Codes: I48.91 - Unspecified atrial fibrillation Disposition: ADMITTED INPATIENT Condition: Improved Admissions Decision to Admit Reason: Admit from ER (General) Decision to Admit/Date: Jan 04, 2019 Time/Decision to Admit Time: 09:40 Departure-Patient Inst. Referrals: [facility] [place] Primary Care Physician EVELYN CHADWICK (Family) Primary Care Physician ASHLEY PITTMAN MD Jan 04, 2019 09:40 POS
[2019-01-04] MEDS ORDERED: PIPERACILLIN SODIUM/TAZOBACTAM 4.5 GM in NS (IVPB) 100 ML IV ONE (09:45)
[2019-01-04] MEDS ORDERED: PROMETHAZINE INJ 25 MG/ML (PHENERGAN) AMP IVP ONE (10:30)
[2019-01-04] MEDS ORDERED: fentaNYL INJECTION 100 MCG/2 ML AMP IVP ONE (10:30)
--- NOTE | 2019-01-04 11:23 | NUR ---
Attempted to call report; nurse not available.
--- NOTE | 2019-01-04 11:46 | Consultation-Cardiology ---
HPI-Cardiology Cardiology Consultation: Date of Consultation 01/04/19 Date of Admission Attending Physician Michael Quiñonez DO Admitting Physician [place]/Count Includes [facility] Consulting Physician Nash ESTEBAN MD HPI: Time Seen by a Provider: 11:46 Chief Complaint: Epigastric pain This is a 73-year-old gentleman who I've seen previously as a consultation from Dr. Vázquez. He has history of persistent atrial fibrillation. He was first diagnosed in July 2014. He is had numerous cardioversions which were unsuccessful with KAT. After his last cardioversion, 48 hours later he had a mi ld stroke and lost vision in one of his eyes. He continues to be in persistent atrial fibrillation and is on Xarelto. He had a previous coronary angiography which showed mild CAD. His ejection fraction was preserved. LVEDP was elevated to 23 mmHg which suggest diastolic dysfunction. He has history of sleep apnea and is on CPAP. He is an active smoker. He also has history of hypertension. No significant family history. He presents with complains of epigastric pain with burning and cramping for the last 4 days. He is also complaining of nausea and vomiting. Denies any chest complaints including chest pain or shortness of breath. Review of Systems-Cardiology Review of Systems Constitutional: As described under HPI; No As described under HPI, No no symptoms reported, No chills, No fever, No lightheadedness Eyes: No As described under HPI, No no symptoms reported, No blindness, No blurred vision, No contact lenses, No drainage, No decreased acuity, No foreign body sensation, No pain, No vision change Ears/Nose/Throat: No As described under HPI, No no symptoms reported, No chronic hearing loss, No ear discharge, No ear pain, No nasal drainage, No ulcerations Respiratory: No no symptoms reported; As described under HPI; No As described under HPI, No cough, No orthopnea, No shortness of breath, No SOB with excertion Cardiovascular: No no symptoms reported; As described under HPI; No As described under HPI, No chest pain, No edema, No irregular heart rate, No lightheadedness, No palpitations Gastrointestinal: No no symptoms reported, No As described under HPI, No abdomen distended; abdominal pain; No blood streaked bowels, No constipation, No diarrhea, No nausea, No vomiting; nausea/vomiting/diarrhea; No stool coloration changes Genitourinary: No As described under HPI, No burning, No dysuria, No discharge, No frequency, No flank pain, No hematuria, No urgency Skin: No rash, No skin related problems, No ulcerations Psychiatric/Neurological: No anxiety, No depression, No seizure, No focal weakness, No syncope Hematologic: No bleeding abnormalities HFQ-Bvsjto-Rodpoz Hx Patient Social History Alcohol Use: Rarely Uses Recreational Drug Use: No Smoking Status: Current Someday Smoker Type Used: Cigars Recent Foreign Travel: No Recent Infectious Disease Expo: No Hospitalization with Isolation: Denies Immunizations Up To Date Tetanus Booster (TDap): More than 5yrs Past Medical History PMH As described under Assessment. Allergies and Home Medications Allergies Coded Allergies: codeine (Unverified Allergy, Intermediate, DIZZYNESS, FAINTING, 07/16/14) Home Medications Amoxicillin/Potassium Clav 1 Each Tablet, 1 EACH PO BID Prescribed by: YULIANA MARTIN on 02/19/17 1046 Enalapril Maleate 20 Mg Tablet, 20 MG PO DAILY, (Reported) Metoprolol Succinate 50 Mg Tab.er.24h, 50 MG PO BID, (Reported) Pantoprazole Sodium 40 Mg Tablet.dr, 40 MG PO DAILY, (Reported) Potassium Chloride 20 Meq Tablet.er, 20 MEQ PO DAILY, (Reported) Rivaroxaban 20 Mg Tablet, 20 MG PO HS, (Reported) Patient Home Medication List Home Medication List Reviewed: Yes Physical Exam-Cardiology Physical Exam Vital Signs/I&O 01/04/19 01/04/19 01/04/19 06:30 11:43 12:15 Temp 36.7 36.7 Pulse 102 104 Resp 18 18 B/P (MAP) 147/92 (110) 116/72 (110) Pulse Ox 95 95 O2 Delivery Room Air Room Air Nasal Cannula Capillary Refill : Less Than 3 Seconds Constitutional: appears stated age; No apparent distress; well-developed, well- nourished HEENT: PERRL; No discharge; hearing is well preserved, oral hygience is good; No ulceration, No xanthelasmas are seen Neck: No carotid bruit; carotid pulses are 2 + bilaterally Respiratory: chest is bilaterally symmetric, lungs clear to auscultation Cardiovascular: irregularly irregular, S1 and S2 Gastrointestinal: soft, tenderness, audible bowel sounds; No spleenomegaly Rectal: deferred Extremities: normal range of motion, non-tender, normal inspection; No clubbing, No cyanosis; no lower extremity edema bilateral; No significant edema Neurologic/Psychiatric: no motor/sensory deficits, alert, normal mood/affect, oriented x 3, power is 5/5 both on sides Skin: normal color, warm/dry; No rash, No ulcerations Data Review Labs Laboratory Tests 01/04/19 06:44: Urine Color ORANGE, Urine Clarity CLEAR, Urine pH 6.0, Urine Specific [place] >=1.030, Urine Protein 2+H, Urine Glucose (UA) NEGATIVE, Urine Ketones 1+H, Urine Nitrite POSITIVE, Urine Bilirubin 2+H, Urine Urobilinogen 1.0, Urine Leukocyte Esterase NEGATIVE, Urine RBC (Auto) 1+H, Urine RBC 0-2, Urine WBC NONE, Urine Squamous Epithelial Cells RARE, Urine Crystals NONE, Urine Bacteria NEGATIVE, Urine Casts NONE, Urine Mucus NEGATIVE, Urine Culture Indicated YES 01/04/19 07:40: White Blood Count 17.4H, Red Blood Count 5.29, Hemoglobin 16.9, Hematocrit 50, Mean Corpuscular Volume 94, Mean Corpuscular Hemoglobin 32, Mean Corpuscular Hemoglobin Concent 34, Red Cell Distribution Width 13.8, Platelet Count 187, Mean Platelet Volume 10.2, Neutrophils (%) (Auto) 77H, Lymphocytes (%) (Auto) 9L , Monocytes (%) (Auto) 14H, Eosinophils (%) (Auto) 0, Basophils (%) (Auto) 0, Neutrophils # (Auto) 13.5H, Lymphocytes # (Auto) 1.5, Monocytes # (Auto) 2.4H, Eosinophils # (Auto) 0.0, Basophils # (Auto) 0.0, Neutrophils % (Manual) 80, Lymphocytes % (Manual) 8, Monocytes % (Manual) 8, Band Neutrophils 4, Blood Morphology Comment NORMAL, Sodium Level 137, Potassium Level 4.3, Chloride Level 102, Carbon Dioxide Level 24, Anion Gap 11, Blood Urea Nitrogen 15, Creatinine 1.25, Estimat Glomerular Filtration Rate 57, BUN/Creatinine Ratio 12, Glucose Level 115H, Calcium Level 9.1, Corrected Calcium 9.3, Total Bilirubin 2.1H, Aspartate Amino Transf (AST/SGOT) 14, Alanine Aminotransferase (ALT/SGPT) 15, Alkaline Phosphatase 77, C-Reactive Protein High Sensitivity 26.45H, Total Protein 7.6, Albumin 3.8, Lipase 7L 01/04/19 10:10: Lactic Acid Level 1.39 A/P-Cardiology Assessment/Admission Diagnosis Acute cholecystitis, Perioperative cardiovascular risk assessment, Persistent atrial fibrillation, Sleep apnea, Hypertension, Previous history of stroke, Mild CAD, Diastolic dysfunction. Plan Acute cholecystitis, on IV antibiotics. Tentatively surgery scheduled for Wednesday. Perioperative cardiovascular risk assessment, patient will be considered at intermediate risk for major adverse perioperative cardiac events undergoing an moderate risk noncardiac surgery. There is no cardiac contraindication to the above-mentioned procedure. Xarelto will be held 2 days before the procedure. Patient will be bridged with Lovenox. Persistent atrial fibrillation, rate is well controlled. EKG. Echocardiogram. Currently on oral anticoagulation. We will hold oral anticoagulation in anticipation of surgery on Wednesday. Bridging with Lovenox. Sleep apnea, sleep apnea. Hypertension, continue outpatient medical therapy. Previous history of stroke, Mild CAD, no active issues. Diastolic dysfunction. No active issues. Echocardiogram. Thank you for your consultation. Please call me if you have any questions. Andriy Esteban MD, FACP, FACC, FSCAI, FHRS, CCDS Interventional Cardiology Cardiac Electrophysiology Vascular Medicine and Endovascular Interventions Nash ESTEBAN MD Jan 04, 2019 11:46 POS
--- NOTE | 2019-01-04 12:00 | NUR ---
Pascual Selby admitted to room 402-1, with an admitting diagnosis of cholecystitis, on 01/04/19 from [place] via ED, accompanied by daughter.PASCUAL SELBY introduced to surroundings, call light, bed controls, phone, TV, temperature control, lights, meal times, smoking policy, visitor policy, side rail policy, bathrooms and showers. Patient Rights given to patient in the handbook.
[2019-01-04] MEDS: ONDANSETRON 4 MG/2 ML (SDV) Z0FRAN IV PRN (12:56)
[2019-01-04] MEDS: fentaNYL INJECTION 100 MCG/2 ML AMP IV PRN ×4 (12:57→21:07)
[2019-01-04] MEDS ORDERED: POTA20TA15 PO (13:32)
[2019-01-04] MEDS ORDERED: FURO40TA4 PO (13:32)
[2019-01-04] MEDS ORDERED: RIVA20TA PO (13:32)
[2019-01-04] MEDS ORDERED: METO50TA15 PO (13:32)
[2019-01-04] MEDS ORDERED: ENAL10TA PO (13:32)
[2019-01-04] MEDS ORDERED: FLUT9.9S NS (13:45)
[2019-01-04] MEDS ORDERED: ACET-2267 PO (13:45)
--- NOTE | 2019-01-04 13:48 | NUR ---
SPOKE WITH THE PATIENT ABOUT HIS MEDICATIONS. HE HAD HIS PRESCRIPTION BOTTLES WITH HIM AND VERIFIED HOW HE TAKES THEM. IN ADDITION TO WHAT IS SHOWN ON THE EXT MED HX HE HAS BOTTLES FOR HIS ENALAPRIL, METOPROLOL, LASIX, AND PROTONIX THAT HAVE MORE RECENT FILL DATES, THEY WERE ALL FILLED FOR 90 DAYS 11-29-18. THE BOTTLE HE HAS WITH HIM FOR POTASSIUM STILL HAS THE AUGUST FILL DATE BUT HE STATES HE HAS A NEWER BOTTLE AT HOME. [id number] [employer] AND VERIFIED THEY DID FILL IT AGAIN ON 11-29-18 FOR 90 DAYS. HE TAKES TYLENOL AND FLONASE OTC NEEDED.
[2019-01-04] MEDS: D5 1/2 NS W/KCL 20 MEQ/L 1,000 ML IV SCH ×2 (14:01→21:06)
--- NOTE | 2019-01-04 14:03 | NUR ---
Pt received 2 ml of Definity solution during echocardiogram per policy. Pt tolerated the procedure with no complaints.
--- NOTE | 2019-01-04 14:13 | History & Physical-Hospitalist ---
GEORGI JORGENSEN [facility] 01/04/19 1413: History of Present Illness HPI/Chief Complaint CC: Epigastric burning/pain, Acute Cholecystitis HPI: 73M presents to ER with 4 days burning/cramping epigastric pain. He reports not being able to eat or drink much at all for the last 4 days. He states he has tried to sip a little soda but that causes his stomach to flare up and have the cramping like pain. He states the pain started up higher in the epigastric r egion but has since moved down a little and to the side more in the RUQ. CT abdomen showed Gallbladder thickening with stranding and stones present. Surgery was consulted due to patient anticoagulation for history of persistent A fib the surgery for will likely be scheduled in 2 days on Wednesday. He has a history of sleep apnea, mild CAD, and a stroke after cardioversion for his A fib that resulted in loss of vision in one of his eyes. WBC 17.4, CRP 26.45, Lipase 7, heart rate 104, BP 116/72 Source: patient, family, spouse Exam Limitations: no limitations Date Seen 01/04/19 Attending Physician Michael Quiñonez DO [facility] Referring Physician Date of Admission Jan 04, 2019 at 11:07 Home Medications & Allergies Home Medications Reviewed patient Home Medication Reconciliation performed by pharmacy medication reconciliations exercise equipment repair technician and/or nursing. Patients Allergies have been reviewed. Allergies Allergies Coded Allergies codeine (Unverified Allergy, Intermediate, DIZZYNESS, FAINTING, 07/16/14) Past Uadwiqh-Bgawcb-Lsgios Hx Patient Social History Alcohol Use: Rarely Uses Recreational Drug Use: No Smoking Status: Current Someday Smoker Type Used: Cigars Recent Foreign Travel: No Contact w/other who traveled: No Recent Hopitalizations: No Recent Infectious Disease Expo: No Immunizations Up To Date Tetanus Booster (TDap): More than 5yrs Seasonal Allergies Seasonal Allergies: No Past Medical History Surgeries: Orthopedic Respiratory: COPD Currently Using CPAP: Yes Currently Using BIPAP: No Cardiac: Atrial Fibrillation, Coronary Artery Disease, High Cholesterol, Hypertension Reproductive: No Sexually Transmitted Disease: No HIV/AIDS: No Musculoskeletal: Arthritis, Back Injury, Chronic Back Pain HEENT: Cataract Loss of Vision: Bilateral Hearing Impairment: Hard of Hearing History of Blood Disorders: No Adverse Reaction to Blood Gregg: No Review of Systems Constitutional: chills, diaphoresis, fever, weakness EENTM: vision loss (One eye); No nose congestion Respiratory: No cough, No short of breath Cardiovascular: No chest pain, No edema, No palpitations Gastrointestinal: abdominal pain (Epigastric, RUQ); No diarrhea; loss of appetite, nausea; No vomiting Genitourinary: No dysuria, No frequency Musculoskeletal: back pain Skin: no symptoms reported Psychiatric/Neurological: Denies Headache, Denies Numbness, Denies Tingling Physical Exam Physical Exam Vital Signs Vital Signs - First Documented 01/04/19 06:30 Temp 36.7 Pulse 102 Resp 18 B/P (MAP) 147/92 (110) Pulse Ox 95 O2 Delivery Room Air Capillary Refill : Less Than 3 Seconds Height, Weight, BMI Height: 5'10.00" Weight: 313lbs. 9.3oz. 142.399993ab; 47.00 BMI Method:Stated General Appearance: Moderate Distress, Obese Respiratory: Chest Non Tender, Lungs Clear, Normal Breath Sounds, No Accessory Muscle Use, No Respiratory Distress Cardiovascular: Regular Rate, Rhythm, No Murmur, Normal Peripheral Pulses Gastrointestinal: No Normal Bowel Sounds (Decreased); Soft, Tenderness (Epigastric, RUQ) Extremity: Non Tender, No Calf Tenderness, No Pedal Edema Neurologic/Psychiatric: Alert, Oriented x3, No Motor/Sensory Deficits, Normal Mood/Affect Skin: Normal Color, Warm/Dry Results Results/Procedures Labs Laboratory Tests 01/04/19 07:40 Patient resulted labs reviewed. Assessment/Plan Assessment and Plan Assessment: Acute Cholecystitis Obstructive Sleep Apnea HTN Hx persistent A fib with failed cardioversion Hx stroke, monocular vision loss Hx mild CAD Plan: Cardiology consultation Surgery consultation Pain management (Fentanyl) Antibiotics (Zosyn) IV fluids Manage Sleep Apnea with CPAP Hold anticoagulation due for surgery preparation DVT prophylaxis with SCD Clinical Quality Measures DVT/VTE Risk/Contraindication: Risk Factor Score Per Nursin RFS Level Per Nursing on Admit: 4+=Very High BRIANNA MARTIN DO 01/04/19 2013: History of Present Illness HPI/Chief Complaint CC: Abdominal pain with nausea HPI: This is 73yoWM clinic pt of [facility] who has a pmh of AF on oral antic oagulation, HTN, ARNOL, COPD and continues to smoke who presented to the ER with abdominal pain and nausea found to have evidence of acute cholecystitis. Pt has been placed on Zosyn antibiotics, will initiate bowel rest and hold Xarelto in order to safely undergo a cholecystectomy by Dr. Quiñonez on Wednesday morning. Cardiology will be consulted. Nausea and pain are both improved. Source: patient, family Time Seen by a Provider: 10:45 Past Zobwayh-Hslaum-Qjanap Hx Past Med/Social Hx: Reviewed Nursing Past Med/Soc Hx, Reviewed and Corrections made Patient Social History Smoking Status: Current Everyday Smoker Past Medical History Cardiac: Atrial Fibrillation, Coronary Artery Disease, High Cholesterol, Hypertension Neurological: Stroke Review of Systems Constitutional: see HPI Gastrointestinal: abdominal pain (Epigastric, RUQ), nausea, vomiting Physical Exam Physical Exam General Appearance: WD/WN, Chronically ill, Mild Distress, Obese Eyes: Right Eye Normal Inspection, Right Eye PERRL HEENT: PERRL/EOMI, TMs Normal, Normal ENT Inspection, Pharynx Normal, Moist Mucous Membranes Neck: Full Range of Motion, Normal Inspection, Non Tender Respiratory: Chest Non Tender, Lungs Clear, No Accessory Muscle Use, No Respiratory Distress, Decreased Breath Sounds Cardiovascular: No Edema, No Gallop, No JVD, No Murmur, Normal Peripheral Pulses, Irregularly Irregular Gastrointestinal: Normal Bowel Sounds, No Organomegaly, No Pulsatile Mass, Non Tender, Soft, Tenderness (Epigastric, RUQ) Back: Normal Inspection, No CVA Tenderness, No Vertebral Tenderness Extremity: Normal Capillary Refill, Normal Inspection, Normal Range of Motion, Non Tender, No Calf Tenderness, No Pedal Edema Neurologic/Psychiatric: Alert, Oriented x3, No Motor/Sensory Deficits, Normal Mood/Affect Skin: Normal Color, Warm/Dry Lymphatic: No Adenopathy Assessment/Plan Admission Diagnosis Assessment: Acute cholecystitis AF HTN HLP COPD Smoker Plan: Zosyn Choly Wednesday Hold OAC Admission Status: Inpatient Order (span 2 midnights) Reason for Inpatient Admission: Gallbladder infection Diagnosis/Problems Diagnosis/Problems (1) Acute cholecystitis Status: Acute (2) Atrial fibrillation Status: Chronic Qualifiers: Atrial fibrillation type: unspecified Qualified Codes: I48.91 - Unspeci fied atrial fibrillation (3) Obstructive sleep apnea Status: Chronic (4) Obesity Status: Chronic (5) Smoker Status: Chronic Supervisory-Addendum Brief Verification & Attestation Participated in pt care: history, MDM, physical Personally performed: exam, history, MDM, supervision of care Care discussed with: Medical Student Procedures: n/a Results interpretation: Verified all documentation Verification and Attestation of Medical Student E/M Service A medical student performed and documented this service in my presence. I reviewed and verified all information documented by the medical student and made modifications to such information, when appropriate. I personally performed the physical exam and medical decision making. Brianna Martin, Jan 04, 2019,20:[address] [facility] Jan 04, 2019 14:13 BRIANNA SCHULTE DO Jan 04, 2019 20:13 POS
[2019-01-04] MEDS ORDERED: ENOXAPARIN 100 MG/1 ML (LOVENOX) SYR SC SCH (15:00)
[2019-01-04] MEDS: PROMETHAZINE INJ 25 MG/ML (PHENERGAN) AMP IV PRN (15:10)
[2019-01-04] MEDS ORDERED: CATHETER FLUSH 10 ML SYR IV PRN (15:15)
[2019-01-04 16:00] VITALS: BP 116/55
[2019-01-04] MEDS: ENOXAPARIN 300 MG/3 ML (LOVENOX) MULTI-DOSE VIAL SQ SCH (16:24)
[2019-01-04] MEDS: PIPERACILLIN/TAZO 4.5 GM/NS 100 ML IV SCH ×2 (16:58)
--- NOTE | 2019-01-04 19:51 | Consultation - Surgery ---
JENNY ZARAGOZA [facility] 01/04/191950: History of Present Illness History of Present Illness Patient Consulted On(jayla/time) 01/04/19 19:44 Date Seen by Provider: Jan 04, 2019 Time Seen by Provider: 13:00 History of Present Illness C/C: abdominal pain Michael is a 73 y/o male that presented to [facility] for abdominal pain. General surgery was consulted due to abdominal pain and CT findings. The pt has had abdominal pain off and on for years but for the last 4 days he has had pain that would not go away. He describes it as a dull pain that has now become a burning pain in the RUQ, and at times it radiates to his umbilicus. Nothing makes it better, but eating certain foods makes it worse. WBC count is 17.[address] imaging shows gallbladder wall thickening with surrounding stranding and stones in the gallbladder neck. . Allergies and Home Medications Allergies Coded Allergies: codeine (Unverified Allergy, Intermediate, DIZZYNESS, FAINTING, 07/16/14) Home Medications Acetaminophen 500 Mg Tablet, 1,000 MG PO Q4H PRN for PAIN-MILD (1-4), (Reported) Enalapril Maleate 10 Mg Tablet, 10 MG PO DAILY, (Reported) Fluticasone Propionate 9.9 Ml [place].susp, 1 SPRAY NS DAILY PRN for ALLERGIES, (Reported) Furosemide 40 Mg Tablet, 40 MG PO DAILY, (Reported) Metoprolol Tartrate 50 Mg Tablet, 50 MG PO BID, (Reported) Pantoprazole Sodium 40 Mg Tablet.dr, 40 MG PO DAILY, (Reported) Potassium Chloride 20 Meq Tab.er.prt, 20 MEQ PO DAILY, (Reported) Rivaroxaban 20 Mg Tablet, 20 MG PO 1700, (Reported) Past Yakacmw-Yvmloe-Wkczac Hx Patient Social History Alcohol Use: Rarely Uses Recreational Drug Use: No Smoking Status: Current Someday Smoker Type Used: Cigars Recent Foreign Travel: No Contact w/Someone Who Travel: No Recent Infectious Disease Expo: No Recent Hopitalizations: No Immunizations Up To Date Tetanus Booster (TDap): More than 5yrs Seasonal Allergies Seasonal Allergies: No Surgeries History of Surgeries: Yes (rt knee) Surgeries: Orthopedic Respiratory History of Respiratory Disorde: Yes Respiratory Disorders: Sleep Apnea, COPD Cardiovascular History of Cardiac Disorders: Yes Cardiac Disorders: Atrial Fibrillation, Coronary Artery Disease, High Cholesterol, Hypertension Neurological History of Neurological Disord: No Reproductive System Hx Reproductive Disorders: No Sexually Transmitted Disease: No HIV/AIDS: No Genitourinary History of Genitourinary Disor: No Gastrointestinal History of Gastrointestinal Di: No Musculoskeletal History of Musculoskeletal Dis: Yes Musculoskeletal Disorders: Arthritis, Back Injury, Chronic Back Pain Endocrine History of Endocrine Disorders: No HEENT HEENT Disorders: Cataract Loss of Vision: Bilateral Hearing Impairment: Hard of Hearing Cancer History of Cancer: No Psychosocial History of Psychiatric Problem: No Integumentary History of Skin or Integumenta: No Blood Transfusions History of Blood Disorders: No Adverse Reaction to a Blood Tr: No Review of Systems-General Constitutional: no symptoms reported EENTM: no symptoms reported Respiratory: no symptoms reported Cardiovascular: no symptoms reported Gastrointestinal: abdominal pain (RUQ), loss of appetite, nausea Genitourinary: no symptoms reported Musculoskeletal: no symptoms reported Skin: no symptoms reported Psychiatric/Neurological: No Symptoms Reported Physical Exam-General Problems Physical Exam Vital Signs Vital Signs - First Documented 01/04/19 01/04/19 06:30 19:00 Temp 36.7 Pulse 102 Resp 18 B/P (MAP) 147/92 (110) Pulse Ox 95 O2 Delivery Room Air O2 Flow Rate 21.00 Capillary Refill : Less Than 3 Seconds General Appearance: WD/WN Eyes: Bilateral Eye PERRL, Bilateral Eye EOMI HEENT: PERRL/EOMI Neck: non-tender Respiratory: chest non-tender, normal breath sounds, no respiratory distress, no accessory muscle use Cardiovascular: normal peripheral pulses, regular rate, rhythm Peripheral Pulses: 2+ Dorsalis Pedis (R), 2+ Left Dors-Pedis (L), 2+ Radial Pulses (R), 2+ Radial Pulses (L) Gastrointestinal: no organomegaly, tenderness Neurologic/Psychiatric: alert, normal mood/affect, oriented x 3 Skin: normal color, warm/dry Lymphatic: no adenopathy Data Review Labs Laboratory Tests 01/04/19 06:44: Urine Color ORANGE, Urine Clarity CLEAR, Urine pH 6.0, Urine Specific Welch >=1.030, Urine Protein 2+H, Urine Glucose (UA) NEGATIVE, Urine Ketones 1+H, Urine Nitrite POSITIVE, Urine Bilirubin 2+H, Urine Urobilinogen 1.0, Urine Leukocyte Esterase NEGATIVE, Urine RBC (Auto) 1+H, Urine RBC 0-2, Urine WBC NONE, Urine Squamous Epithelial Cells RARE, Urine Crystals NONE, Urine Bacteria NEGATIVE, Urine Casts NONE, Urine Mucus NEGATIVE, Urine Culture Indicated YES 01/04/19 07:40: White Blood Count 17.4H, Red Blood Count 5.29, Hemoglobin 16.9, Hematocrit 50, Mean Corpuscular Volume 94, Mean Corpuscular Hemoglobin 32, Mean Corpuscular Hemoglobin Concent 34, Red Cell Distribution Width 13.8, Platelet Count 187, Mean Platelet Volume 10.2, Neutrophils (%) (Auto) 77H, Lymphocytes (%) (Auto) 9L , Monocytes (%) (Auto) 14H, Eosinophils (%) (Auto) 0, Basophils (%) (Auto) 0, Neutrophils # (Auto) 13.5H, Lymphocytes # (Auto) 1.5, Monocytes # (Auto) 2.4H, Eosinophils # (Auto) 0.0, Basophils # (Auto) 0.0, Neutrophils % (Manual) 80, Lymphocytes % (Manual) 8, Monocytes % (Manual) 8, Band Neutrophils 4, Blood Morphology Comment NORMAL, Sodium Level 137, Potassium Level 4.3, Chloride Level 102, Carbon Dioxide Level 24, Anion Gap 11, Blood Urea Nitrogen 15, Creatinine 1.25, Estimat Glomerular Filtration Rate 57, BUN/Creatinine Ratio 12, Glucose Level 115H, Calcium Level 9.1, Corrected Calcium 9.3, Total Bilirubin 2.1H, Aspartate Amino Transf (AST/SGOT) 14, Alanine Aminotransferase (ALT/SGPT) 15, Alkaline Phosphatase 77, C-Reactive Protein High Sensitivity 26.45H, Total Protein 7.6, Albumin 3.8, Lipase 7L 01/04/19 10:10: Lactic Acid Level 1.39 Assessment/Plan Assessment/Plan Assessment/Plan Acute Cholecystitis, Leukocytosis, ARNOL, HTN, AFIB, Vision loss, Hx of stroke, CAD - Acute Cholecystitis:will perform laparoscopic cholecystectomy and all other indicated procedures. Patient was informed of the risks and benefits of procedure. He understands and accepts and wishes to proceed. Currently we are cooling the inflammation off with ABX, D/C anticoagulation for surgery, patient is to be NPO and on IV fluids. Surgery is planned for Wednesday01/06/19. - Mechanical DVT prophylaxis Clinical Quality Measures DVT/VTE Risk/Contraindication: Risk Factor Score Per Nursin RFS Level Per Nursing on Admit: 4+=Very High MICHAEL DUKE DO 01/05/192046: History of Present Illness History of Present Illness History of Present Illness 73 year old male ruq abd pain for last 3-4 years or so. Typicall come on and go away. Last 4 days pain has not gone away. Dull, burning pain ruq moves to umbilicus. Foods make worse, nothing better just usually goes away. Ct scan demonstrates cholelithiasis and changes of cholecystitis. Patient with afib on Xarelto which is now on hold and bridged with Lovenox. Wbc 17.4. Allergies and Home Medications Allergies Coded Allergies: codeine (Unverified Allergy, Intermediate, DIZZYNESS, FAINTING, 07/16/14) Home Medications Acetaminophen 500 Mg Tablet, 1,000 MG PO Q4H PRN for PAIN-MILD (1-4), (Reported) Enalapril Maleate 10 Mg Tablet, 10 MG PO DAILY, (Reported) Fluticasone Propionate 9.9 Ml [place].susp, 1 SPRAY NS DAILY PRN for ALLERGIES, (Reported) Furosemide 40 Mg Tablet, 40 MG PO DAILY, (Reported) Metoprolol Tartrate 50 Mg Tablet, 50 MG PO BID, (Reported) Pantoprazole Sodium 40 Mg Tablet.dr, 40 MG PO DAILY, (Reported) Potassium Chloride 20 Meq Tab.er.prt, 20 MEQ PO DAILY, (Reported) Rivaroxaban 20 Mg Tablet, 20 MG PO 1700, (Reported) Patient Home Medication List Home Medication List Reviewed: Yes Past Yjwfiie-Aigxbp-Rsegxx Hx Patient Social History Smoking Status: Current Everyday Smoker Type Used: Cigars Surgeries History of Surgeries: Yes Surgeries: Orthopedic Respiratory Respiratory Disorders: Sleep Apnea, COPD Cardiovascular Cardiac Disorders: Atrial Fibrillation, Coronary Artery Disease, High Cholesterol, Hypertension Musculoskeletal Musculoskeletal Disorders: Arthritis, Back Injury, Chronic Back Pain HEENT HEENT Disorders: Cataract Hearing Impairment: Hard of Hearing Family Medical History Significant Family History: No Pertinent Family Hx Review of Systems-General Constitutional: no symptoms reported EENTM: no symptoms reported Respiratory: no symptoms reported Cardiovascular: no symptoms reported Gastrointestinal: abdominal pain (RUQ), loss of appetite, nausea Genitourinary: no symptoms reported Musculoskeletal: no symptoms reported Skin: no symptoms reported Psychiatric/Neurological: No Symptoms Reported Physical Exam-General Problems Physical Exam General Appearance: WD/WN, no apparent distress HEENT: PERRL/EOMI Neck: non-tender, supple Respiratory: chest non-tender, no respiratory distress, no accessory muscle use Cardiovascular: regular rate, rhythm Gastrointestinal: tenderness (right upper quadrant) Back: no CVA tenderness Extremities: non-tender, normal inspection Neurologic/Psychiatric: alert, normal mood/affect, oriented x 3 Skin: normal color, warm/dry Lymphatic: no adenopathy Assessment/Plan Assessment/Plan Assessment/Plan Acute Cholecystitis/cholelithiasis, Leukocytosis, ARNOL, HTN, AFIB patient on Xarelto on hold and bridged on Lovenox ct scan findings of cholecystitis and cholelithiasis needs gb out, will keep on antibiotics, npo to calm it down and will plan to do laparoscopic cholecystectomy intraoperative cholangiogram all other indicated procedures on Wednesday. discussed risks and benefits which patient and family understand. Supervisory-Addendum Brief Verification & Attestation Participated in pt care: history, MDM, physical Personally performed: exam, history, MDM, supervision of care Care discussed with: Medical Student Procedures: n/a Results interpretation: Verified all documentation Verification and Attestation of Medical Student E/M Service A medical student performed and documented this service in my presence. I reviewed and verified all information documented by the medical student and made modifications to such information, when appropriate. I personally performed the physical exam and medical decision making. Michael Duke, Jan 04, 2019,20:47 [facility]ENNY ZARAGOZA [facility] Jan 04, 2019 19:51 MICHAEL FONG DO Jan 05, 2019 20:47 POS
[2019-01-04 20:00] VITALS: BP 118/67
[2019-01-04] MEDS ORDERED: ACETAMINOPHEN 650 MG SUPP (TYLENOL) PR PRN (20:15)
[2019-01-04] MEDS ORDERED: diphenhydrAMINE 50 MG/ML INJ (BENADRYL) IVP PRN (20:15)
--- NOTE | 2019-01-04 20:17 | NUR ---
CALL TO SRIKANTH AT THIS TIME. NOTIFIED HIM OF PT REQUEST FOR SOMETHING FOR SLEEP. REQUEST WAS DENIED AT THIS TIME. THIS RN ALSO NOTIFIED SRIKANTH OF PT REFUSAL TO WEAR CPAP/BIPAP BECAUSE PT STATES, "I DONT LIKE IT." NO ORDERS FOR INTERVENTIONS AT THIS TIME. SRIKANTH STATES THAT PT MAY HAVE SOME ICE CHIPS TO KEEP HIS MOUTH MOIST BUT SHOULD BE NPO OTHER THAN THE ICE CHIPS.
[2019-01-04 23:41] VITALS: BP 106/73
[2019-01-05] MEDS: PIPERACILLIN/TAZO 4.5 GM/NS 100 ML IV SCH ×6 (01:32→16:41)
[2019-01-05 03:30] VITALS: BP 101/63
[2019-01-05] MEDS: D5 1/2 NS W/KCL 20 MEQ/L 1,000 ML IV SCH ×4 (04:53→21:24)
[2019-01-05] MEDS: ENOXAPARIN 300 MG/3 ML (LOVENOX) MULTI-DOSE VIAL SQ SCH (04:59)
[2019-01-05 05:34] LABS: BASOPHILS % (AUTO) 0 % (0-10); EOSINOPHILS # (AUTO) 0.1 10^3/uL (0.0-0.3); EOSINOPHILS % (AUTO) 0 % (0-10); HEMATOCRIT 44 % (40-54); HEMOGLOBIN 14.9 G/DL (13.3-17.7); LYMPHOCYTES # (AUTO) 1.5 X 10^3 (1.0-4.0); LYMPHOCYTES % (AUTO) 11 % (12-44); MEAN CORPUSCULAR HEMOGLOBIN 32 PG (25-34); MEAN CORPUSCULAR HGB CONC 34 G/DL (32-36); MEAN CORPUSCULAR VOLUME 95 FL (80-99); MONOCYTES # (AUTO) 1.9 X 10^3 (0.0-1.0); MONOCYTES % (AUTO) 14 % (0-12); NEUTROPHILS # (AUTO) 10.3 X 10^3 (1.8-7.8); NEUTROPHILS % (AUTO) 75 % (42-75); PLATELET COUNT 173 10^3/uL (130-400); RED CELL DISTRIBUTION WIDTH 13.7 % (10.0-14.5); WHITE BLOOD COUNT 13.8 10^3/uL (4.3-11.0)
[2019-01-05 05:59] LABS: ALBUMIN 3.1 GM/DL (3.2-4.5); BILIRUBIN,TOTAL 1.8 MG/DL (0.1-1.0); CALCIUM 8.4 MG/DL (8.5-10.1); CREATININE SERUM 1.2 MG/DL (0.60-1.30); POTASSIUM 4.1 MMOL/L (3.6-5.0); TOTAL PROTEIN 6.2 GM/DL (6.4-8.2)
--- NOTE | 2019-01-05 07:10 | Progress Note - Surgery ---
[facility] 01/05/19 0710: Subjective Date Seen by a Provider: Jan 05, 2019 Time Seen by a Provider: 06:48 Subjective/Events-last exam Pt is alert and oriented and in no acute distress Pt is still having Nausea but has not vomited Having abdominal pain still, made better by laying on left side Is still NPO, has been having ICE chips to keep mouth moist WBC is down from 16.9 to 14.9 Patient denies F/C, Chest pain, has minor SOB at times especially when moving around. He refused CPAP. Pt stated he may bring machine from home because it is more comfortable Focused Exam Lactate Level 01/04/19 10:10: Lactic Acid Level 1.39 Objective Exam Vital Signs Date Time Temp Pulse Resp B/P (MAP) Pulse Ox O2 Delivery O2 Flow Rate FiO2 01/05/19 06:26 100 01/05/19 03:30 36.8 74 18 101/63 (76) 94 Room Air 01/05/19 01:00 104 01/04/19 23:41 37.5 98 18 106/73 (84) 94 Room Air 01/04/19 20:00 37.7 98 24 118/67 (84) 98 NIV CPAP 40.00 01/04/19 19:44 Room Air 01/04/19 19:00 112 01/04/19 19:00 107 21.00 01/04/19 18:59 97 Room Air 01/04/19 16:00 37.6 100 22 116/55 (75) 94 Room Air 01/04/19 15:23 102 01/04/19 12:15 Nasal Cannula 01/04/19 11:43 36.7 104 18 116/72 (110) 95 Room Air I & O 01/05/19 07:00 Intake Total 1100 ml Output Total 450 ml Balance 650 ml Capillary Refill : Less Than 3 Seconds General Appearance: WD/WN, Chronically ill, Obese HEENT: PERRL/EOMI Neck: Full Range of Motion, Normal Inspection, Non Tender Respiratory: Chest Non Tender, Lungs Clear, No Accessory Muscle Use, No Respira tory Distress, Decreased Breath Sounds Cardiovascular: Regular Rate, Rhythm, No Edema, Normal Peripheral Pulses, Irregularly Irregular Peripheral Pulses: 2+ Dorsalis Pedis (R), 2+ Left Dors-Pedis (L), 2+ Radial P ulses (R), 2+ Radial Pulses (L) Gastrointestinal: normal bowel sounds, soft, tenderness (Fairly intense te nderness focused in the epigastric region) Extremity: Normal Capillary Refill, Normal Inspection, No Calf Tenderness, No Pedal Edema Neurologic/Psychiatric: Alert, Oriented x3, Normal Mood/Affect Skin: Normal Color, Warm/Dry Lymphatic: No Adenopathy Results Lab Laboratory Tests 01/04/19 07:40: White Blood Count 17.4H, Red Blood Count 5.29, Hemoglobin 16.9, Hematocrit 50, Mean Corpuscular Volume 94, Mean Corpuscular Hemoglobin 32, Mean Corpuscular Hemoglobin Concent 34, Red Cell Distribution Width 13.8, Platelet Count 187, Mean Platelet Volume 10.2, Neutrophils (%) (Auto) 77H, Lymphocytes (%) (Auto) 9L , Monocytes (%) (Auto) 14H, Eosinophils (%) (Auto) 0, Basophils (%) (Auto) 0, Neutrophils # (Auto) 13.5H, Lymphocytes # (Auto) 1.5, Monocytes # (Auto) 2.4H, Eosinophils # (Auto) 0.0, Basophils # (Auto) 0.0, Neutrophils % (Manual) 80, Lymphocytes % (Manual) 8, Monocytes % (Manual) 8, Band Neutrophils 4, Blood Morphology Comment NORMAL, Sodium Level 137, Potassium Level 4.3, Chloride Level 102, Carbon Dioxide Level 24, Anion Gap 11, Blood Urea Nitrogen 15, Creatinine 1.25, Estimat Glomerular Filtration Rate 57, BUN/Creatinine Ratio 12, Glucose Level 115H, Calcium Level 9.1, Corrected Calcium 9.3, Total Bilirubin 2.1H, Aspartate Amino Transf (AST/SGOT) 14, Alanine Aminotransferase (ALT/SGPT) 15, Alkaline Phosphatase 77, C-Reactive Protein High Sensitivity 26.45H, Total Protein 7.6, Albumin 3.8, Lipase 7L 01/04/19 10:10: Lactic Acid Level 1.39 01/05/19 04:58: White Blood Count 13.8H, Red Blood Count 4.66, Hemoglobin 14.9, Hematocrit 44, Mean Corpuscular Volume 95, Mean Corpuscular Hemoglobin 32, Mean Corpuscular Hemoglobin Concent 34, Red Cell Distribution Width 13.7, Platelet Count 173, Mean Platelet Volume 11.0H, Neutrophils (%) (Auto) 75, Lymphocytes (%) (Auto) 11L, Monocytes (%) (Auto) 14H, Eosinophils (%) (Auto) 0, Basophils (%) (Auto) 0, Neutrophils # (Auto) 10.3H, Lymphocytes # (Auto) 1.5, Monocytes # (Auto) 1.9H, Eosinophils # (Auto) 0.1, Basophils # (Auto) 0.0, Sodium Level 138, Potassium Level 4.1, Chloride Level 107, Carbon Dioxide Level 20L, Anion Gap 11, Blood Urea Nitrogen 13, Creatinine 1.20, Estimat Glomerular Filtration Rate 60, BUN/Creatinine Ratio 11, Glucose Level 103, Calcium Level 8.4L, Corrected Calcium 9.1, Total Bilirubin 1.8H, Aspartate Amino Transf (AST/SGOT) 13, Alanine Aminotransferase (ALT/SGPT) 17, Alkaline Phosphatase 71, Total Protein 6.2L, Alb umin 3.1L, Lipase 8 Assessment/Plan Assessment/Plan Assessment/Plan Acute Cholecystitis, Leukocytosis, ARNOL, HTN, AFIB, Vision loss, Hx of stroke, CAD - Improved WBC, continue to mange nausea and pain control - Acute Cholecystitis:will perform laparoscopic cholecystectomy and all other indicated procedures. Patient was informed of the risks and benefits of procedure. He understands and accepts and wishes to proceed. Currently we are cooling the inflammation off with ABX, D/C anticoagulation for surgery, patient is to be NPO and on IV fluids. Surgery is planned for Wednesday01/06/19. - Mechanical DVT prophylaxis Clinical Quality Measures DVT/VTE Risk/Contraindication: Risk Factor Score Per Nursin RFS Level Per Nursing on Admit: 4+=Very High MICHAEL QUIÑONEZ DO 01/05/192051: Subjective Subjective/Events-last exam Patient feeling a little better today. Minimal nausea. wanting liquids. wbc slightly down. pain ruq slightly improved. denies fever sweats chills shortness of breath or chest pain at this time. Objective Exam General Appearance: WD/WN, Chronically ill HEENT: PERRL/EOMI Neck: Full Range of Motion Respiratory: Chest Non Tender, No Accessory Muscle Use, No Respiratory Distress Cardiovascular: Regular Rate, Rhythm Gastrointestinal: soft, tenderness (ruq ) Extremity: Normal Capillary Refill, Normal Inspection Neurologic/Psychiatric: Alert, Oriented x3, Normal Mood/Affect Skin: Normal Color, Warm/Dry Lymphatic: No Adenopathy Assessment/Plan Assessment/Plan Assessment/Plan Acute Cholecystitis/cholelithiasis, Leukocytosis, ARNOL, HTN, AFIB plan lap buffy continue abx Xarelto holding no new questions Supervisory-Addendum Brief Verification & Attestation Participated in pt care: history, MDM, physical Personally performed: exam, history, MDM, supervision of care Care discussed with: Medical Student Procedures: n/a Results interpretation: Verified all documentation Verification and Attestation of Medical Student E/M Service A medical student performed and documented this service in my presence. I reviewed and verified all information documented by the medical student and made modifications to such information, when appropriate. I personally performed the physical exam and medical decision making. Michael Quiñonez, Jan 05, 2019,20:52 [facility] Jan 05, 2019 07:10 MICHAEL FONG DO Jan 05, 2019 20:52 POS
[2019-01-05 07:48] VITALS: BP 115/73
[2019-01-05] MEDS: ONDANSETRON 4 MG/2 ML (SDV) Z0FRAN IV PRN (08:23)
[2019-01-05] MEDS: fentaNYL INJECTION 100 MCG/2 ML AMP IV PRN ×3 (08:23→21:25)
--- NOTE | 2019-01-05 08:23 | Progress Note - Hospitalist ---
[facility]ENS[facility] 01/05/19 0823: Subjective HPI/CC On Admission Date Seen by Provider: Jan 05, 2019 Time Seen by Provider: 07:22 CC: Abdominal pain with nausea HPI: This is 73yoWM clinic pt of [facility] who has a pmh of AF on oral anticoagulation, HTN, ARNOL, COPD and continues to smoke who presented to the ER with abdominal pain and nausea found to have evidence of acute cholecystitis. Pt has been placed on Zosyn antibiotics, will initiate bowel rest and hold Xarelto in order to safely undergo a cholecystectomy by Dr. Quiñonez on Wednesday morning. Cardiology will be consulted. Nausea and pain are both improved. Subjective/Events-last exam Pt reports not liking the CPAP machine here due to noise and alarms going off every time he moved in bed or tried to talk He states his mouth is very dry today making it hard to talk, and he would like to be able to drink a small amount of water today to keep his mouth from drying out He reports not having a BM since Wednesday (2days ago) Pt states the pain medication does take some of the edge off the pain but does not help completely He has increased pain when he tries to turn in bed and has been laying on his right side the whole time The pain does lead to some nausea Review of Systems General: No Chills; Appetite (Loss of appetite) HEENT: No Head Aches; Other (Dry mouth) Pulmonary: No Dyspnea, No Cough Cardiovascular: No: Chest Pain, Palpitations, Edema Gastrointestinal: Nausea, Abdominal Pain, Constipation; No: Vomiting, Diarrhea Genitourinary: No Dysuria Neurological: No: Numbness, Confusion Focused Exam Lactate Level 01/04/19 10:10: Lactic Acid Level 1.39 Objective Exam Vital Signs Vital Signs Date Time Temp Pulse Resp B/P (MAP) Pulse Ox O2 Delivery O2 Flow Rate FiO2 01/05/19 07:48 36.9 94 18 115/73 (87) 93 Room Air 01/04/19 20:00 40.00 Capillary Refill : Less Than 3 Seconds General Appearance: Moderate Distress, Obese Respiratory: Chest Non Tender, Lungs Clear, Normal Breath Sounds, No Accessory Muscle Use, No Respiratory Distress Cardiovascular: Regular Rate, Rhythm, No Edema, No Murmur, Normal Peripheral Pulses Gastrointestinal: Normal Bowel Sounds, Soft, Tenderness (RUQ) Extremity: Non Tender, No Calf Tenderness, No Pedal Edema Neurologic/Psychiatric: Alert, Oriented x3, Normal Mood/Affect Results/Procedures Lab Laboratory Tests 01/05/19 04:58 Patient resulted labs reviewed. Assessment/Plan Assessment and Plan Assess & Plan/Chief Complaint Assessment: Acute Cholecystitis Obstructive Sleep Apnea HTN Hx persistent A fib with failed cardioversion Hx stroke, monocular vision loss Hx mild CAD Plan: Cardiology consultation Surgery consultation Pain management (Fentanyl) Antibiotics (Zosyn) IV fluids Manage Sleep Apnea with CPAP Hold anticoagulation due for surgery preparation DVT prophylaxis with SCD Clinical Quality Measures DVT/VTE Risk/Contraindication: Risk Factor Score Per Nursin RFS Level Per Nursing on Admit: 4+=Very High BRIANNA MARTIN DO 01/05/192020: Subjective Subjective/Events-last exam Pt doing better. Did not sleep well. CPAP the hospital provided did not help him much. Lying mostly on his right side. Dry mouth because of the NPO status. Cholecystectomy scheduled for tomorrow. His is at the bedside. Labs reviewed, white count 12. Review of Systems General: Fatigue Gastrointestinal: Abdominal Pain Objective Exam General Appearance: No Apparent Distress, WD/WN, Chronically ill, Obese Respiratory: Lungs Clear, Normal Breath Sounds Cardiovascular: Regular Rate, Rhythm Neurologic/Psychiatric: Alert, Oriented x3 Assessment/Plan Assessment and Plan Assess & Plan/Chief Complaint Assessment: Acute cholecystitis AF OAC Plan: IV abx Hold Xarelto Diagnosis/Problems Diagnosis/Problems (1) Acute cholecystitis Status: Acute (2) Obesity Status: Chronic (3) Obstructive sleep apnea Status: Chronic (4) Atrial fibrillation Status: Chronic Qualifiers: Qualified Codes: I48.91 - Unspecified atrial fibrillation (5) Smoker Status: Chronic Supervisory-Addendum Brief Verification & Attestation Participated in pt care: history, MDM, physical Personally performed: exam, history, MDM, supervision of care Care discussed with: Medical Student Procedures: n/a Results interpretation: Verified all documentation Verification and Attestation of Medical Student E/M Service A medical student performed and documented this service in my presence. I reviewed and verified all information documented by the medical student and made modifications to such information, when appropriate. I personally performed the physical exam and medical decision making. Brianna Martin, Jan 05, 2019,20:20 [facility] Jan 05, 2019 08:23 BRIANNA SCHULTE DO Jan 05, 2019 20:21 POS
[2019-01-05] MEDS: PROMETHAZINE INJ 25 MG/ML (PHENERGAN) AMP IV PRN ×2 (11:40→21:25)
[2019-01-05 11:43] VITALS: BP 130/74
--- NOTE | 2019-01-05 12:00 | Cardiology Progress Note ---
Cardiology SOAP Progress Note Subjective: No cardiac complaints. Objective: I&O/Vital Signs 01/05/19 01/05/19 01/05/19 01/05/19 01:00 03:30 06:26 07:00 Temp 36.8 Pulse 104 74 100 103 Resp 18 B/P (MAP) 101/63 (76) Pulse Ox 94 O2 Delivery Room Air 01/05/19 01/05/19 07:48 11:43 Temp 36.9 36.8 Pulse 94 102 Resp 18 18 B/P (MAP) 115/73 (87) 130/74 (92) Pulse Ox 93 93 O2 Delivery Room Air Room Air 01/05/19 00:00 Intake Total 0 ml Output Total 200 ml Balance -200 ml Weight (Pounds): 313 Weight (Ounces): 9.3 Weight (Calculated Kilograms): 142.231043 Constitutional: appears stated age; No apparent distress; well-developed, well- nourished Respiratory: chest is bilaterally symmetric, lungs clear to auscultation Cardiovascular: irregularly irregular, S1 and S2 Gastrointestional: soft, tenderness, audible bowel sounds; No spleenomegaly Extremities: normal range of motion, non-tender, normal inspection; No clubbing, No cyanosis; no lower extremity edema bilateral; No significant edema Neurologic/Psychiatric: no motor/sensory deficits, alert, normal mood/affect, oriented x 3, power is 5/5 both on sides Skin: normal color, warm/dry; No rash, No ulcerations Results/Procedures: Labs Laboratory Tests 01/05/19 04:58: White Blood Count 13.8H, Red Blood Count 4.66, Hemoglobin 14.9, Hematocrit 44, Mean Corpuscular Volume 95, Mean Corpuscular Hemoglobin 32, Mean Corpuscular Hemoglobin Concent 34, Red Cell Distribution Width 13.7, Platelet Count 173, Mean Platelet Volume 11.0H, Neutrophils (%) (Auto) 75, Lymphocytes (%) (Auto) 11L, Monocytes (%) (Auto) 14H, Eosinophils (%) (Auto) 0, Basophils (%) (Auto) 0, Neutrophils # (Auto) 10.3H, Lymphocytes # (Auto) 1.5, Monocytes # (Auto) 1.9H, Eosinophils # (Auto) 0.1, Basophils # (Auto) 0.0, Sodium Level 138, Potassium Level 4.1, Chloride Level 107, Carbon Dioxide Level 20L, Anion Gap 11, Blood Urea Nitrogen 13, Creatinine 1.20, Estimat Glomerular Filtration Rate 60, BUN/Creatinine Ratio 11, Glucose Level 103, Calcium Level 8.4L, Corrected Calcium 9.1, Total Bilirubin 1.8H, Aspartate Amino Transf (AST/SGOT) 13, Alanine Aminotransferase (ALT/SGPT) 17, Alkaline Phosphatase 71, Total Protein 6.2L, Albumin 3.1L, Lipase 8 A/P: Assessment/Dx: Acute cholecystitis, Perioperative cardiovascular risk assessment, Persistent atrial fibrillation, Sleep apnea, Hypertension, Previous history of stroke, Mild CAD, Diastolic dysfunction. Plan: Acute cholecystitis, on IV antibiotics. Tentatively surgery scheduled for Wednesday. Perioperative cardiovascular risk assessment, patient will be considered at intermediate risk for major adverse perioperative cardiac events undergoing an moderate risk noncardiac surgery. There is no cardiac contraindication to the above-mentioned procedure. Xarelto will be held 2 days before the procedure. Patient will be bridged with Lovenox. Persistent atrial fibrillation, rate is well controlled. EKG. Echocardiogram done 01/04/2019 shows normal LV function. Currently on oral anticoagulation. We will hold oral anticoagulation in anticipation of surgery on Wednesday. Bridging with Lovenox. Sleep apnea, sleep apnea. Hypertension, continue outpatient medical therapy. Previous history of stroke, Mild CAD, no active issues. Diastolic dysfunction. No active issues. Echocardiogram was done in atrial fibrillation therefore diastolic function was not accurately assessed. Thank you for your consultation. Please call me if you have any questions. Andriy Esteban MD, FACP, FACC, FSCAI, FHRS, CCDS Interventional Cardiology Cardiac Electrophysiology Vascular Medicine and Endovascular Interventions Focused Exam Lactate Level 01/04/19 10:10: Lactic Acid Level 1.39 Nash ESTEBAN MD Jan 05, 2019 12:00 pm POS
[2019-01-05 16:00] VITALS: BP 128/75
[2019-01-05] MEDS ORDERED: FLUTICASONE NASAL SPRAY (FLONASE) 16 GM BTL NS PRN (16:00)
[2019-01-05] MEDS ORDERED: NON-FORMULARY MEDICATION 1 EA EA (Acetaminophen (Tylenol Extra Strength) 1,000 MG) PO PRN (16:00)
[2019-01-05] MEDS ORDERED: ACETAMINOPHEN 500 MG TAB (TYLENOL) PO PRN (16:00)
[2019-01-05] MEDS ORDERED: NON-FORMULARY MEDICATION 1 EA EA (Fluticasone Propionate (Flonase Allergy Relief) 1 SPRAY) NS PRN (16:00)
[2019-01-05] MEDS: NYSTATIN ORAL SUSP 5 ML UDC PO SCH (17:32)
[2019-01-05 20:00] VITALS: BP 131/94
[2019-01-05] MEDS: PANTOPRAZOLE 40 MG (PROTONIX) TAB PO SCH (20:23)
[2019-01-05] MEDS: KCL 20 MEQ TAB (K-DUR) PO SCH (20:23)
[2019-01-05] MEDS: meTOprolol TARTRATE 50 MG (LOPRESSOR) TAB PO SCH (21:24)
[2019-01-05 23:43] VITALS: BP 118/75
[2019-01-06] VITALS (12 sets, daily range): BP systolic 110–136; BP diastolic 67–98
[2019-01-06] MEDS: NYSTATIN ORAL SUSP 5 ML UDC PO SCH ×4 (00:38→17:13)
[2019-01-06] MEDS: PIPERACILLIN/TAZO 4.5 GM/NS 100 ML IV SCH ×6 (01:33→17:13)
[2019-01-06] MEDS: ONDANSETRON 4 MG/2 ML (SDV) Z0FRAN IV PRN ×4 (02:43→13:35)
[2019-01-06 05:29] LABS: BASOPHILS % (AUTO) 0 % (0-10); EOSINOPHILS # (AUTO) 0.2 10^3/uL (0.0-0.3); EOSINOPHILS % (AUTO) 2 % (0-10); HEMATOCRIT 44 % (40-54); HEMOGLOBIN 14.5 G/DL (13.3-17.7); LYMPHOCYTES # (AUTO) 1.4 X 10^3 (1.0-4.0); LYMPHOCYTES % (AUTO) 10 % (12-44); MEAN CORPUSCULAR HEMOGLOBIN 32 PG (25-34); MEAN CORPUSCULAR HGB CONC 33 G/DL (32-36); MEAN CORPUSCULAR VOLUME 95 FL (80-99); MEAN PLATELET VOLUME 10.7 FL (7.4-10.4); MONOCYTES # (AUTO) 1.6 X 10^3 (0.0-1.0); MONOCYTES % (AUTO) 12 % (0-12); NEUTROPHILS # (AUTO) 10.3 X 10^3 (1.8-7.8); NEUTROPHILS % (AUTO) 77 % (42-75); PLATELET COUNT 186 10^3/uL (130-400); RED CELL DISTRIBUTION WIDTH 13.9 % (10.0-14.5); WHITE BLOOD COUNT 13.4 10^3/uL (4.3-11.0)
[2019-01-06 05:43] LABS: INR 1.2 (0.8-1.4); PROTHROMBIN TIME PATIENT 16.1 SEC (12.2-14.7)
[2019-01-06 06:01] LABS: ALANINE AMINOTRANSFERASE 31 U/L (0-55); ALKALINE PHOSPHATASE 85 U/L (40-136); BILIRUBIN,TOTAL 1.5 MG/DL (0.1-1.0); BUN/CREATININE RATIO 10; CALCIUM 8.2 MG/DL (8.5-10.1); CARBON DIOXIDE 18 MMOL/L (21-32); CHLORIDE 106 MMOL/L (98-107); CREATININE SERUM 1.14 MG/DL (0.60-1.30); GFR ESTIMATED > 60; GLUCOSE 106 MG/DL (70-105); POTASSIUM 4.4 MMOL/L (3.6-5.0); SODIUM 135 MMOL/L (135-145); TOTAL PROTEIN 6.3 GM/DL (6.4-8.2)
[2019-01-06] MEDS: D5 1/2 NS W/KCL 20 MEQ/L 1,000 ML IV SCH ×3 (06:06→23:26)
[2019-01-06] MEDS ORDERED: LACTATED RINGERS 1,000 ML IV ONE (06:30)
[2019-01-06] MEDS ORDERED: IOPAMIDOL 61% 30 ML (ISOVUE 300) VIAL IV ONE (07:32)
[2019-01-06] MEDS ORDERED: BUP/EPI 0.5% 1:200,000 (MARCAINE) 10ML VIAL IJ ONE (07:32)
--- NOTE | 2019-01-06 07:41 | Progress Note - Surgery ---
Subjective Date Seen by a Provider: Jan 06, 2019 Time Seen by a Provider: 07:38 Subjective/Events-last exam Pt is alert and oriented and in no acute distress, sitting at bedside and family present Still has abdominal pain, but feeling slighly better. Pt is ready for surgery, has been NPO since Midnight Passing flatus and urinating without issue WBC has come down at 13.4 from 13.8 Pt denies N/V, SOB, and Chest pain outside of normal pains Using home breathing machine Focused Exam Lactate Level 01/04/19 10:10: Lactic Acid Level 1.39 Objective Exam Vital Signs Date Time Temp Pulse Resp B/P (MAP) Pulse Ox O2 Delivery O2 Flow Rate FiO2 01/06/19 07:00 95 01/06/19 03:20 37.0 87 20 116/80 (92) 95 NIV CPAP 40.00 01/06/19 01:00 92 01/05/19 23:43 36.8 87 18 118/75 (89) 95 NIV CPAP 40.00 01/05/19 20:00 37.2 91 18 131/94 (106) 96 Room Air 01/05/19 19:40 Room Air 01/05/19 19:00 109 01/05/19 16:00 37.4 100 20 128/75 (92) 95 Room Air 01/05/19 12:19 107 01/05/19 11:43 36.8 102 18 130/74 (92) 93 Room Air 01/05/19 08:00 93 Room Air 01/05/19 07:48 36.9 94 18 115/73 (87) 93 Room Air I & O 01/06/19 07:00 Intake Total 4400 ml Output Total 575 ml Balance 3825 ml Capillary Refill : Less Than 3 Seconds General Appearance: WD/WN, Chronically ill HEENT: PERRL/EOMI Neck: Full Range of Motion Respiratory: Chest Non Tender, No Accessory Muscle Use, No Respiratory Distress Cardiovascular: Regular Rate, Rhythm Peripheral Pulses: 2+ Dorsalis Pedis (R), 2+ Left Dors-Pedis (L), 2+ Radial Pulses (R), 2+ Radial Pulses (L) Gastrointestinal: soft, tenderness (ruq ) Extremity: Normal Capillary Refill, Normal Inspection Neurologic/Psychiatric: Alert, Oriented x3, Normal Mood/Affect Skin: Normal Color, Warm/Dry Lymphatic: No Adenopathy Results Lab Laboratory Tests 01/06/19 04:55: White Blood Count 13.4H, Red Blood Count 4.59, Hemoglobin 14.5, Hematocrit 44, Mean Corpuscular Volume 95, Mean Corpuscular Hemoglobin 32, Mean Corpuscular Hemoglobin Concent 33, Red Cell Distribution Width 13.9, Platelet Count 186, Mean Platelet Volume 10.7H, Neutrophils (%) (Auto) 77H, Lymphocytes (%) (Auto) 10L, Monocytes (%) (Auto) 12, Eosinophils (%) (Auto) 2, Basophils (%) (Auto) 0, Neutrophils # (Auto) 10.3H, Lymphocytes # (Auto) 1.4, Monocytes # (Auto) 1.6H, Eosinophils # (Auto) 0.2, Basophils # (Auto) 0.0, Prothrombin Time 16.1H, INR Comment 1.2, Sodium Level 135, Potassium Level 4.4, Chloride Level 106, Carbon Dioxide Level 18L, Anion Gap 11, Blood Urea Nitrogen 11, Creatinine 1.14, Es timat Glomerular Filtration Rate > 60, BUN/Creatinine Ratio 10, Glucose Level 106H, Calcium Level 8.2L, Corrected Calcium 9.0, Total Bilirubin 1.5H, Aspartate Amino Transf (AST/SGOT) 34, Alanine Aminotransferase (ALT/SGPT) 31, Alkaline Phosphatase 85, Total Protein 6.3L, Albumin 3.0L Microbiology 01/04/19 Blood Culture - Preliminary, Resulted No growth 01/04/19 Urine Culture - Final, Complete 3 or more isolates Assessment/Plan Assessment/Plan Assessment/Plan Acute Cholecystitis/cholelithiasis, Leukocytosis, ARNOL, HTN, AFIB - plan lap buffy - continue abx - Xarelto holding - no new questions Clinical Quality Measures DVT/VTE Risk/Contraindication: Risk Factor Score Per Nursin RFS Level Per Nursing on Admit: 4+=Very High [facility] Jan 06, 2019 07:41 POS
--- NOTE | 2019-01-06 08:24 | Progress Note - Hospitalist ---
[facility] JOR[facility]ENS[facility] 01/06/19 0824: Subjective HPI/CC On Admission Date Seen by Provider: Jan 06, 2019 Time Seen by Provider: 08:02 CC: Abdominal pain with nausea HPI: This is 73yoWM clinic pt of [facility] who has a pmh of AF on oral anticoagulation, HTN, ARNOL, COPD and continues to smoke who presented to the ER with abdominal pain and nausea found to have evidence of acute cholecystitis. Pt has been placed on Zosyn antibiotics, will initiate bowel rest and hold Xarelto in order to safely undergo a cholecystectomy by Dr. Quiñonez on Wednesday morning. Cardiology will be consulted. Nausea and pain are both improved. Subjective/Events-last exam Pt reports still having significant pain and nausea associated with movements He reports his pain was better controlled yesterday He was allowed to drink and eat some Jello last night for dinner that made his dry mouth much better He reports having a BM last night He is scheduled for his cholecystectomy this morning and he would like to return home [place] after surgery Hospital Course: Pt was admitted from the ER after having epigastric burning/cramping for 4 days that migrated to the RUQ pain that was determined to be due to Acute Cholecysti tis seen on CT. He was placed on IV fluids, Antibiotics, and pain management for one day in preparation for surgery. He underwent the cholecystectomy on 01/06/19. Review of Systems HEENT: No Head Aches, No Visual Changes Pulmonary: No Dyspnea, No Cough Cardiovascular: No: Chest Pain, Palpitations, Edema Gastrointestinal: Nausea, Abdominal Pain; No: Vomiting, Diarrhea, Constipation Neurological: No: Numbness, Confusion Focused Exam Lactate Level 01/04/19 10:10: Lactic Acid Level 1.39 Objective Exam Vital Signs Vital Signs Date Time Temp Pulse Resp B/P (MAP) Pulse Ox O2 Delivery O2 Flow Rate FiO2 01/06/19 07:30 Room Air 01/06/19 07:00 95 01/06/19 03:20 37.0 20 116/80 (92) 95 40.00 Capillary Refill : Less Than 3 Seconds General Appearance: Mild Distress Respiratory: Chest Non Tender, Lungs Clear, Normal Breath Sounds, No Accessory Muscle Use, No Respiratory Distress Cardiovascular: Regular Rate, Rhythm, No Edema, No Murmur, Normal Peripheral Pulses Gastrointestinal: Soft, Tenderness (RUQ) Extremity: Non Tender, No Calf Tenderness, No Pedal Edema Neurologic/Psychiatric: Alert, Oriented x3, Normal Mood/Affect Results/Procedures Lab Laboratory Tests 01/06/19 04:55 Patient resulted labs reviewed. Assessment/Plan Assessment and Plan Assess & Plan/Chief Complaint Assessment: Acute Cholecystitis Obstructive Sleep Apnea HTN Hx persistent A fib with failed cardioversion Hx stroke, monocular vision loss Hx mild CAD Plan: Cardiology consultation Surgery consultation (Cholecystectomy today) Pain management (Fentanyl) Antibiotics (Zosyn) IV fluids Manage Sleep Apnea with CPAP Hold anticoagulation for surgery preparation DVT prophylaxis with SCD Clinical Quality Measures DVT/VTE Risk/Contraindication: Risk Factor Score Per Nursin RFS Level Per Nursing on Admit: 4+=Very High BRIANNA MARTIN DO 01/06/19 3889: Subjective Subjective/Events-last exam Pt had uncomplicated cholecystectomy. Wants to go home soon. Reviewed meds and labs. Held oral anticoagulation to have surgery and will place back on that when appro kiara by surgery. Vitals remain stable. Review of Systems General: Fatigue Gastrointestinal: Abdominal Pain Objective Exam General Appearance: No Apparent Distress, WD/WN Assessment/Plan Assessment and Plan Assess & Plan/Chief Complaint s/p choly Pain control Monitor cardiac Diagnosis/Problems Diagnosis/Problems (1) Acute cholecystitis Status: Acute (2) Obesity Status: Chronic (3) Obstructive sleep apnea Status: Chronic (4) Atrial fibrillation Status: Chronic Qualifiers: Qualified Codes: I48.91 - Unspecified atrial fibrillation (5) Smoker Status: Chronic Supervisory-Addendum Brief Verification & Attestation Participated in pt care: history, MDM, physical Personally performed: exam, history, MDM, supervision of care Care discussed with: Medical Student Procedures: n/a Results interpretation: Verified all documentation Verification and Attestation of Medical Student E/M Service A medical student performed and documented this service in my presence. I revie wed and verified all information documented by the medical student and made modifications to such information, when appropriate. I personally performed the physical exam and medical decision making. Brianna Martin, Jan 06, 2019,16:59 [facility]ENS[facility] Jan 06, 2019 08:24 BRIANNA SCHULTE DO Jan 06, 2019 16:59 POS
[2019-01-06] MEDS: ENALAPRIL 10 MG (VASOTEC) TAB PO SCH (09:00)
[2019-01-06] MEDS: meTOprolol TARTRATE 50 MG (LOPRESSOR) TAB PO SCH ×2 (09:00→21:56)
[2019-01-06] MEDS: FUROSEMIDE 40 MG (LASIX) TAB PO SCH (09:00)
--- NOTE | 2019-01-06 09:05 | NUR ---
Patient off floor to surgery at this time.
[2019-01-06] MEDS ORDERED: fentaNYL INJECTION 100 MCG/2 ML AMP ONE ×2 (09:30→11:13)
[2019-01-06] MEDS ORDERED: MIDAZOLAM 2 MG/2 ML (VERSED) VIAL ONE (09:30)
[2019-01-06] MEDS: LACTATED RINGERS 1,000 ML IV PRN ×4 (09:34→12:20)
[2019-01-06] MEDS ORDERED: ROCURONIUM 10 MG/ML 5 ML SYRINGE IV ONE ×2 (10:02→10:38)
[2019-01-06] MEDS ORDERED: proPOfol 200 MG/20 ML (DIPRIVAN) VIAL IV ONE (10:02)
[2019-01-06] MEDS ORDERED: DEXAMETHASONE 10 MG/ML (DECADRON) 1 ML VIAL ONE (10:02)
[2019-01-06] MEDS ORDERED: LIDOCAINE PF 2% 5 ML (XYLOCAINE) VIAL ONE (10:02)
[2019-01-06] MEDS ORDERED: NEOSTIGMINE 3 MG/3 ML VIAL ONE (10:02)
[2019-01-06] MEDS ORDERED: SEVOFLURANE (ULTANE) 15 ML INHAL SOLN ONE ×5 (10:02→11:44)
[2019-01-06] MEDS ORDERED: ONDANSETRON 4 MG/2 ML (SDV) Z0FRAN ONE (10:02)
[2019-01-06] MEDS ORDERED: GLYCOPYRROLATE 0.2 MG/ML (ROBINUL) 2 ML VIAL ONE (10:02)
[2019-01-06] MEDS ORDERED: LACTATED RINGERS 1,000 ML IV PRN (10:06)
[2019-01-06] MEDS ORDERED: LABETALOL HCL 20 MG/4 ML VIAL ONE (10:17)
[2019-01-06] MEDS ORDERED: morphine INJ 10 MG/ML 1ML (SYR OR VIAL) ONE (12:22)
[2019-01-06] MEDS ORDERED: PROMETHAZINE INJ 25 MG/ML (PHENERGAN) AMP IVP ONE ×2 (12:30→13:15)
[2019-01-06] MEDS ORDERED: ONDANSETRON 4 MG/2 ML (SDV) Z0FRAN IVP PRN (12:30)
[2019-01-06] MEDS ORDERED: morphine INJ 10 MG/ML 1ML (SYR OR VIAL) IVP ONE (12:30)
[2019-01-06] MEDS ORDERED: HYDROmorphone 2 MG/ML VIAL (DILAUDID) IV ONE (12:30)
--- NOTE | 2019-01-06 12:38 | Diagnostic Imaging Report ---
INDICATION: Fluoroscopy during intraoperative cholangiogram. The patient does have cholelithiasis. Fluoroscopy was provided for Dr. Quiñonez during intraoperative cholangiogram. 16 seconds of fluoroscopic time was utilized. Images demonstrate contrast being injected via the cystic duct remnant. Intrahepatic and extrahepatic bile ducts are normal caliber. No filling defects are seen to suggest retained stone. Pancreatic duct is unremarkable. There is free flow of contrast into the duodenum. IMPRESSION: Fluoroscopy for intraoperative cholangiogram. Dictated by: Dictated on workstation # [id number]
--- NOTE | 2019-01-06 13:10 | NUR ---
Back from surgery at this time. Report from Lidia BARTHOLOMEW. Family at bedside.
[2019-01-06] MEDS: fentaNYL INJECTION 100 MCG/2 ML AMP IV PRN ×2 (13:35→15:46)
--- NOTE | 2019-01-06 14:31 | Cardiology Progress Note ---
Cardiology SOAP Progress Note Subjective: The patient was seen immediately post surgery. No cardiac complaints. Objective: I&O/Vital Signs 01/06/19 01/06/19 01/06/19 01/06/19 03:20 07:00 07:30 08:00 Temp 37.0 36.8 Pulse 87 95 75 Resp 20 18 B/P (MAP) 116/80 (92) 126/91 (103) Pulse Ox 95 93 O2 Delivery NIV CPAP Room Air Room Air O2 Flow Rate 40.00 01/06/19 01/06/19 01/06/19 01/06/19 12:14 12:14 12:20 12:30 Temp 36.2 Resp 20 20 B/P (MAP) 131/98 (109) 117/96 (103) Pulse Ox 96 96 O2 Delivery OxyMask OxyMask OxyMask OxyMask O2 Flow Rate 10 10 10 10 01/06/19 01/06/19 01/06/19 01/06/19 12:30 12:40 12:45 12:50 Resp 20 20 20 B/P (MAP) 110/91 (97) 116/67 (83) 116/70 (85) Pulse Ox 92 94 94 O2 Delivery Nasal Cannula Nasal Cannula Nasal Cannula Nasal Cannula O2 Flow Rate 5 5 5 5 01/06/19 01/06/19 01/06/19 01/06/19 13:00 13:00 13:10 13:10 Temp 36.2 Resp 20 20 B/P (MAP) 127/90 (102) 128/87 (101) Pulse Ox 97 96 O2 Delivery Nasal Cannula Nasal Cannula Nasal Cannula Nasal Cannula O2 Flow Rate 5 5 5 5 01/06/19 00:00 Intake Total 3280 ml Output Total 575 ml Balance 2705 ml Weight (Pounds): 313 Weight (Ounces): 9.3 Weight (Calculated Kilograms): 142.942861 Constitutional: appears stated age; No apparent distress; well-developed, well- nourished Respiratory: chest is bilaterally symmetric, lungs clear to auscultation Cardiovascular: irregularly irregular, S1 and S2 Gastrointestional: soft, tenderness, audible bowel sounds; No spleenomegaly Extremities: normal range of motion, non-tender, normal inspection; No clubbing, No cyanosis; no lower extremity edema bilateral; No significant edema Neurologic/Psychiatric: no motor/sensory deficits, alert, normal mood/affect, oriented x 3, power is 5/5 both on sides Skin: normal color, warm/dry; No rash, No ulcerations Results/Procedures: Labs Laboratory Tests 01/06/19 04:55: White Blood Count 13.4H, Red Blood Count 4.59, Hemoglobin 14.5, Hematocrit 44, Mean Corpuscular Volume 95, Mean Corpuscular Hemoglobin 32, Mean Corpuscular Hemoglobin Concent 33, Red Cell Distribution Width 13.9, Platelet Count 186, Mean Platelet Volume 10.7H, Neutrophils (%) (Auto) 77H, Lymphocytes (%) (Auto) 10L, Monocytes (%) (Auto) 12, Eosinophils (%) (Auto) 2, Basophils (%) (Auto) 0, Neutrophils # (Auto) 10.3H, Lymphocytes # (Auto) 1.4, Monocytes # (Auto) 1.6H, Eosinophils # (Auto) 0.2, Basophils # (Auto) 0.0, Prothrombin Time 16.1H, INR Comment 1.2, Sodium Level 135, Potassium Level 4.4, Chloride Level 106, Carbon Dioxide Level 18L, Anion Gap 11, Blood Urea Nitrogen 11, Creatinine 1.14, Estimat Glomerular Filtration Rate > 60, BUN/Creatinine Ratio 10, Glucose Level 106H, Calcium Level 8.2L, Corrected Calcium 9.0, Total Bilirubin 1.5H, Aspartate Amino Transf (AST/SGOT) 34, Alanine Aminotransferase (ALT/SGPT) 31, Alkaline Phosphatase 85, Total Protein 6.3L, Albumin 3.0L Microbiology 01/04/19 Blood Culture - Preliminary, Resulted No growth 01/04/19 Urine Culture - Final, Complete 3 or more isolates A/P: Assessment/Dx: Acute cholecystitis, Perioperative cardiovascular risk assessment, Persistent atrial fibrillation, Sleep apnea, Hypertension, Previous history of stroke, Mild CAD, Diastolic dysfunction. Plan: Acute cholecystitis, on IV antibiotics. Surgery done this morning. Hold Xarelto to tomorrow. Persistent atrial fibrillation, rate is well controlled. EKG. Echocardiogram done 01/04/2019 shows normal LV function. Currently on oral anticoagulation. We will hold oral anticoagulation in anticipation of surgery on Wednesday. Bridging with Lovenox. Sleep apnea, Hypertension, continue outpatient medical therapy. Previous history of stroke, Mild CAD, no active issues. Diastolic dysfunction. No active issues. Echocardiogram was done in atrial fibrillation therefore diastolic function was not accurately assessed. Thank you for your consultation. Please call me if you have any questions. Andriy Esteban MD, FACP, FACC, FSCAI, FHRS, CCDS Interventional Cardiology Cardiac Electrophysiology Vascular Medicine and Endovascular Interventions Focused Exam Lactate Level 01/04/19 10:10: Lactic Acid Level 1.39 Nash ESTEBAN MD Jan 06, 2019 2:31 pm POS
[2019-01-06] MEDS ORDERED: HYDROcodone/APAP 5 MG/325 MG (LORTAB) TAB PO PRN (16:00)
--- NOTE | 2019-01-06 16:00 | NUR ---
REPORT RECEIVED FROM PUMA PAUL. ASSUMED CARE OF THE PATIENT AT THIS TIME. PATIENT IS RESTING IN BED WITH HIS DAUGHTER AT BEDSIDE. PAIN MEDICATION GIVEN PER PATIENT REQUEST. PATIENT CURRENTLY ON 2L NC O2 95-96% SAT. TURNED OXYGEN DOWN TO 1L. WILL CONTINUE TO MONITOR. CALLED DR DUKE TO INQUIRE ABOUT ORAL PAIN MEDICATION, DIET AND IV FLUID RATE. NEW ORDERS ENTERED.
--- NOTE | 2019-01-06 19:24 | Progress Note-Post Operative ---
Post-Operative Progess Note Surgeon (s)/Supervisor Drilling And Shooting (s) Surgeon MARGARET DUKE DO Supervisor Drilling And Shooting: Dr. Carter Pre-Operative Diagnosis cholecystitis, cholelithiasis Post-Operative Diagnosis cholecystitis cholelithiasis, necrotic gallbladder Procedure & Operative Findings Date of Procedure 01/06/19 Procedure Performed/Findings lap buffy c ioc Anesthesia Type general Estimated Blood Loss Estimated blood loss (mL): minimal Specimens/Packing Specimens Removed Gallbladder Packing: Surgicel MARGARET DUKE DO Jan 06, 2019 19:24 POS
[2019-01-06] MEDS ORDERED: DOCU-143 PO (19:26)
[2019-01-06] MEDS ORDERED: AMOX-358 PO (19:26)
[2019-01-06] MEDS ORDERED: ACHD5005 PO (19:26)
--- NOTE | 2019-01-06 19:31 | Discharge Inst-Simple/Standard ---
Discharge Inst-Standard Discharge Medications New, Converted or Re-Newed RX: RX on Chart Patient Instructions/Follow Up Plan of Care/Instructions/FU: 2 Weeks Khang Keep track of drain, when less than 30 mL in 24 hours, let Dr. Quiñonez office know so you can have it pulled that day. Activity as Tolerated: No Discharge Diet: Regular Diet Other Inst to Patient Follow up Appt: Make appointment for 2 weeks. Instructions: No lifting greater than 10 pounds. No strenuous activity. May shower in 24 hours, no tub bath or soaking. Use incentive spirometer at home as directed. No Smoking Skin/Wound Care: May remove bandages. You need to leave the white strips over incision on they will fall off on their own. When drain less than 30 mL in [address] Quiñonez office so that they can remove it. Symptoms to Report: Appetite Changes, Extremity Discoloration, Numbness/Tingling, Swelling Increased, Bleeding Excessive, Eyesight Changes, Pain Increased, Urine Color Change, Constipation(Persistent), Fever over 101 degree F, Pain/Pressure in chest, Urinating Difficulty, Cough Up/Vomit Blood, Heart Beat Irreg/Pounding, Pain/Pressure in jaw, Vaginal Bleeding Increase, Cramps in feet or legs, Lightheadedness, Pain/Pressure in shoulder, Diarrhea(Persistent), Memory Changes Suddenly, Questions/Concerns, Weight gain consecutive days, Dizziness/Fainting, Nausea/Vomiting, Shortness of Breath, Weight gain over 2 pounds. If eyes or skin turn yellow notify physician. If questions or concerns contact your physician Or seek help at emergency department. Planned Outpatient Orders/Ref. Pneu Vac Indicated: Yes MARGARET QUIÑONEZ DO Jan 06, 2019 19:31 POS
[2019-01-07] VITALS: BP 120/70
[2019-01-07] MEDS: NYSTATIN ORAL SUSP 5 ML UDC PO SCH ×2 (00:10→06:36)
[2019-01-07] MEDS: PIPERACILLIN/TAZO 4.5 GM/NS 100 ML IV SCH ×4 (01:36→09:18)
--- NOTE | 2019-01-07 03:22 | OPERATIVE REPORT ---
DATE OF SERVICE: 01/06/2019 PREOPERATIVE DIAGNOSES: Cholecystitis, cholelithiasis. POSTOPERATIVE DIAGNOSES: Cholecystitis, cholelithiasis and necrotic gallbladder. PROCEDURE: Laparoscopic cholecystectomy with intraoperative cholangiogram. SURGEON: Margaret Quiñonez DO [employer] CONSULTANT: Dr. Carter, assisted in retraction, dissection and closure. ANESTHESIA: General. ESTIMATED BLOOD LOSS: Minimal. COMPLICATIONS: None. PACKING: Surgicel. INDICATIONS: The patient is a 73-year-old male with cholecystitis, cholelithiasis. He is on anticoagulation. He was found to have acute cholecystitis and was placed on antibiotics to cool off and also allow his anticoagulation to wear off. The patient understands risks and benefits of procedure and wished to proceed with procedure. Consent was signed in the chart. DESCRIPTION OF PROCEDURE: The patient was taken to the operating suite, was prepped and draped in sterile fashion. Surgical pause was performed. Local anesthetic was infiltrated just above the umbilicus. A #11 blade scalpel was used to make a skin incision. Cautery was used to dissect down the fascia, scored, grasped and elevated and the abdomen was then entered. An 0 Vicryl was placed in a alwklh-yh-ebvda fashion for closure at the end of the case. Balloon trocar was inserted and pneumoperitoneum was achieved. Under direct visualization of the laparoscope, a 5 mm trocar was placed in subxiphoid region and two 5 mm trocars were placed in the right upper quadrant. The gallbladder was then located a large phlegmon up in the right upper quadrant, which had to be taken down until the gallbladder was able to be visualized. Once visualized the gallbladder was significantly inflamed and edematous with multiple adhesions gallbladder was grasped and ruptured and clear fluid erupted and then purulent material erupted. Gallbladder was then continued to be grasped and elevated and careful dissection was used with [place] and [place] to continue to try to free the gallbladder. The cystic artery was isolated and dissected around. Clips were placed on the proximal and distal portion of cystic artery and this was then transected. The gallbladder was necrotic and when grabbing it to retract this would continue to tear. The gallbladder, near the neck, was opened and large gallstones were visualized. The inside of the cystic duct was able to be visualized. Arrow catheter was attempted to be inserted for cholangiogram, but there is a stone in the proximal portion of the cystic duct not allowing to occur. This was then removed. More of the phlegmon was slowly and carefully dissected off and the cystic duct was then visualized and dissected around. A clip was placed on the distal portion of the cystic duct. The duct was then partially transected and Arrow catheter was inserted. Cholangiogram was performed. There were no filling defects. Contrast made its way into the duodenum without difficulty. The Arrow catheter was then removed and clips were placed on the proximal portion of the cystic duct and the duct was then completely transected. Hook cautery was then used to dissect the gallbladder from the gallbladder fossa achieving hemostasis. While this was necrotic, a small portion of the gallbladder back wall was left. Lots of edematous tissue and thickened rind was present. Once removed, it was placed in an Endobag and removed through the 12 mm trocar site. The abdomen was then irrigated with copious amounts of irrigation and suction. Hemostasis was achieved. A piece of Surgicel was placed in the liver bed as well. Due to the purulent material that erupted from the gallbladder and the large phlegmon, a 19 Rbeezy drain was placed under the liver and the gallbladder fossa and brought out through one of the 5 mm trocar sites and then secured. The abdomen was then desufflated, the trocars were removed. The 0 Vicryl was placed at the beginning of the case was then closed. Skin was then closed using 4-0 Monocryl in subcuticular fashion. The abdomen was washed and dried. Skin Affix was placed over the incisions. The patient tolerated procedure well without any complications and taken to recovery room in stable condition. Job ID: [id number] DocumentID: [id number] Dictated Date: 01/06/2019 20:46:21 Grounds Manager Date: 01/07/2019 03:20:45 Dictated By: MARGARET QUIÑONEZ DO
[2019-01-07 04:00] VITALS: BP 112/78
[2019-01-07 04:40] LABS: BASOPHILS % (AUTO) 0 % (0-10); EOSINOPHILS % (AUTO) 0 % (0-10); HEMATOCRIT 42 % (40-54); LYMPHOCYTES # (AUTO) 0.9 X 10^3 (1.0-4.0); LYMPHOCYTES % (AUTO) 6 % (12-44); MEAN CORPUSCULAR HEMOGLOBIN 32 PG (25-34); MEAN CORPUSCULAR HGB CONC 33 G/DL (32-36); MEAN CORPUSCULAR VOLUME 96 FL (80-99); MEAN PLATELET VOLUME 10.9 FL (7.4-10.4); MONOCYTES # (AUTO) 1.2 X 10^3 (0.0-1.0); MONOCYTES % (AUTO) 9 % (0-12); NEUTROPHILS # (AUTO) 11.3 X 10^3 (1.8-7.8); NEUTROPHILS % (AUTO) 85 % (42-75); PLATELET COUNT 191 10^3/uL (130-400); RED CELL DISTRIBUTION WIDTH 13.6 % (10.0-14.5); WHITE BLOOD COUNT 13.4 10^3/uL (4.3-11.0)
[2019-01-07 05:00] LABS: ALBUMIN 3.1 GM/DL (3.2-4.5); BILIRUBIN,TOTAL 0.9 MG/DL (0.1-1.0); CALCIUM 8.4 MG/DL (8.5-10.1); CREATININE SERUM 1.6 MG/DL (0.60-1.30); POTASSIUM 5.1 MMOL/L (3.6-5.0); TOTAL PROTEIN 6.3 GM/DL (6.4-8.2)
[2019-01-07] MEDS: KCL 20 MEQ TAB (K-DUR) PO SCH (06:36)
[2019-01-07] MEDS: PANTOPRAZOLE 40 MG (PROTONIX) TAB PO SCH (06:36)
[2019-01-07 08:00] VITALS: BP 142/75
[2019-01-07] MEDS: meTOprolol TARTRATE 50 MG (LOPRESSOR) TAB PO SCH (09:18)
[2019-01-07] MEDS: ENALAPRIL 10 MG (VASOTEC) TAB PO SCH (09:18)
[2019-01-07] MEDS: FUROSEMIDE 40 MG (LASIX) TAB PO SCH (09:18)
--- NOTE | 2019-01-07 10:19 | Physical Therapy Evaluation ---
PT Evaluation-General Medical Diagnosis Admission Date Jan 04, 2019 at 11:07 Medical Diagnosis: cholecystitis Onset Date: Jan 04, 2019 Therapy Diagnosis Therapy Diagnosis: decreased mobility Height/Weight Height (Feet): 5 Height (Inches): 10.00 Weight (Pounds): 313 Weight (Ounces): 9.3 Precautions Precautions/Isolations: Fall Prevention, Standard Precautions Weight Bear Status Right Lower Extremity: Right Full Weight Bearing Left Lower Extremity: Left Full Weight Bearing Referral Physician: Dr. Quiñonez Reason for Referral: Evaluation/Treatment Medical History Pertinent Medical History: Atrial Fib, Arthritis, CAD, COPD, DM, HTN, Smoking Additional Medical History chronic back pain, sleep apnea Current History Presented to ED with epigastric pain. Reviewed History: Yes Social History Home: Single Level Current Living Status: Spouse Entry Into Home: Level Entry Prior Prior Level of Function SCALE: Activities may be completed with or without assistive devices. 2-Rwstsbcxxv-sqyyaox completes the activity by him/herself with no assistance from a helper. 5-Set-up or Clean-up Assistance-helper sets up or cleans up; patient completes activity. [place] assists only prior to or following the activity. 4-Supervision or Touching Assistance-helper provides verbal cues and/or touching/steadying and/or contact guard assistance as patient completes activity. Assistance may be provided throughout the activity or intermittently. 3-Partial/Moderate Assistance-helper does LESS THAN HALF the effort. [place] lifts, holds or supports trunk or limbs, but provides less than half the effort. 2-Substantial/Maximal Assistance-helper does MORE THAN HALF the effort. [place] lifts or holds trunk or limbs and provides more than half the effort. 1-Hzwbdnoig-wqkmci does ALL the effort. Patient does none of the effort to complete the activity. Or, the assistance of 2 or more helpers is required for the patient to complete the activity. If activity was not attempted, code reason: 7-Patient Refused. 9-Not Applicable-not attempted and the patient did not perform the activity before the current illness, exacerbation or injury. 10-Not Attempted due to Environmental Limitations-(lack of equipment, weather restraints, etc.). 88-Not Attempted due to Medical Conditions or Safety Concerns. Bed Mobility: 76 Transfers (B,C,W/C): 6 Gait: 6 Prior Devices Use: Walker PT Evaluation-Current Subjective Pt. in bed with family present. States he has already walked in the halls, hopes to go home today. Pt/Family Goals home with spouse Objective Patient Orientation: Person, Place, Time, Situation Attachments: IV ROM/Strength ROM Upper Extremities WFL ROM Lower Extremities WFL Strength Upper Extremities WFL Strength Lower Extremities WFL Integumentary/Posture Integumentary see nursing notes Bowel Incontinence: No Bladder Incontinence: No Neuromuscular (Tone, Coordination, Reflexes) unremarkable Sensory Vision: Functional Hearing: Functional Sensation Right Upper Extremit: Intact Sensation Left Upper Extremity: Intact Sensation Right Lower Extremit: Intact Sensation Left Lower Extremity: Intact Transfers Roll Left to Right (QC): 6 Sit to Lying (QC): 7 Lying to Sitting/Side of Bed(Q: 6 Sit to Stand (QC): 6 Chair/Ssn-kd-Pocsr Xfer(QC): 7 Car Transfer (QC): 7 Gait Does the Patient Walk?: Yes Mode of Locomotion: Walk Anticipated Mode of Locomotion: Walk Walk 10 feet (QC): 6 Walk 50 ft with 2 Turns(QC): 6 Walk 150 ft (QC): 6 Walking 10ft/uneven surface-QC: 7 Distance: 300 ft Gait Assistive Device: FWW Wheelchair Training Does the Pt Use a Wheelchair?: No Wheel 50 ft with 2 turns (QC): 9 Wheel 150 ft (QC): 9 Type of Wheelchair: Manual Stairs 1 Step (curb) (QC): 7 4 Steps (QC): 7 12 Steps (QC): 7 Balance Sitting Static: Good Sitting Dynamic: Good Standing Static: Good Standing Dynamic: Good Picking up an Object (QC): 7 Assessment/Needs Pt. is a 73 y.o. male with decreased mobility following surgical procedure. Pt. ambulated safely with FWW and was mod (I) with all transfers. Pt. plan to D/C to home today. No further skilled PT (I) needed at this time. Rehab Potential: Good PT Short Term Goals Short Term Goals Time Frame: Jan 07, 2019 Walk 150 feet: 6 PT Prison Goals Transit Operator Goals PT Transit Operator Goals Time Frame: Jan 07, 2019 Roll Left & Right (QC): 0 Sit to Lying (QC): 0 Lying-Sitting on Side/Bed(QC): 0 Sit to Stand (QC): 0 Chair/Dnn-id-Jejop Xfer(QC): 0 Toilet Transfer (QC): 0 Car Transfer (QC): 0 Does the Patient Walk: Yes Walk 10 feet (QC): 6 Walk 50ft with 2 Turns (QC): 0 Walk 150 ft (QC): 6 Walking 10ft on Uneven Surface: 0 1 Step (curb) (QC): 0 4 Steps (QC): 0 12 Steps (QC): 0 Picking up an Object (QC): 0 Does the Pt use WC or Scooter?: No Type: N/A Type: N/A PT Plan Treatment/Plan Treatment Plan: Discontinue PT, goals met Treatment Duration: Jan 07, 2019 Frequency: 1 time per week Patient and/or Family Agrees t: Yes Time/GCodes Time In: 821 Time Out: 835 Total Billed Treatment Time: 14 Total Billed Treatment 1JOE' HUMBERTO ARAIZA PT Jan 07, 2019 10:19 POS
--- NOTE | 2019-01-07 11:19 | Progress Note ---
Subjective Date Seen by a Provider: Jan 07, 2019 Time Seen by a Provider: 10:30 Subjective/Events-last exam Patient seen with Dr. Ron. Patient reports doing well. Denies any N/V, F/C. Minimal abdominal pain on the right side. Tolerating diet and ambulating well. Patient reports ready to go home. Objective Exam Vital Signs Date Time Temp Pulse Resp B/P (MAP) Pulse Ox O2 Delivery O2 Flow Rate FiO2 01/07/19 08:05 91 Room Air 01/07/19 08:00 36.8 107 24 142/75 (97) 94 Room Air 01/07/19 07:30 Room Air 01/07/19 07:00 121 01/07/19 04:00 36.4 88 20 112/78 (89) 94 Room Air 01/07/19 01:00 77 01/07/19 00:00 37.0 86 20 120/70 (87) 92 Room Air 01/06/19 20:40 36.6 111 24 132/79 (96) 90 Nasal Cannula 1.00 01/06/19 20:00 Room Air 01/06/19 19:00 107 01/06/19 15:58 35.9 95 20 123/76 (92) 96 Nasal Cannula 2.00 01/06/19 15:31 96 Nasal Cannula 2.00 01/06/19 13:10 Nasal Cannula 5 01/06/19 13:10 36.2 20 128/87 (101) 96 Nasal Cannula 5 01/06/19 13:00 Nasal Cannula 5 01/06/19 13:00 113 01/06/19 13:00 20 127/90 (102) 97 Nasal Cannula 5 01/06/19 12:50 20 116/70 (85) 94 Nasal Cannula 5 01/06/19 12:45 Nasal Cannula 5 01/06/19 12:40 20 116/67 (83) 94 Nasal Cannula 5 01/06/19 12:30 20 110/91 (97) 92 Nasal Cannula 5 01/06/19 12:30 OxyMask 10 01/06/19 12:20 20 117/96 (103) 96 OxyMask 10 01/06/19 12:14 OxyMask 10 01/06/19 12:14 36.2 20 131/98 (109) 96 OxyMask 10 01/06/19 12:00 36.4 102 16 136/84 (101) 97 Nasal Cannula 5.00 I & O 01/07/19 07:00 Intake Total 2770 ml Output Total 1540 ml Balance 1230 ml Capillary Refill : Less Than 3 Seconds General Appearance: No Apparent Distress, WD/WN Neck: Full Range of Motion, Normal Inspection, Non Tender, Supple Respiratory: Normal Breath Sounds, No Accessory Muscle Use, No Respiratory Distress Cardiovascular: No Edema, No Murmur, Irregularly Irregular (Chronic a-fib) Gastrointestinal: normal bowel sounds, soft, tenderness, other (Right side abdominal drain with SS drainge) Extremity: Normal Capillary Refill, Normal Inspection, Normal Range of Motion Neurologic/Psychiatric: Alert, Oriented x3 Skin: Normal Color, Warm/Dry, Other (abdominal incisions C/D/I) Results Lab Laboratory Tests 01/07/19 03:43: White Blood Count 13.4H, Red Blood Count 4.42, Hemoglobin 14.0, Hematocrit 42, Mean Corpuscular Volume 96, Mean Corpuscular Hemoglobin 32, Mean Corpuscular Hemoglobin Concent 33, Red Cell Distribution Width 13.6, Platelet Count 191, Mean Platelet Volume 10.9H, Neutrophils (%) (Auto) 85H, Lymphocytes (%) (Auto) 6L, Monocytes (%) (Auto) 9, Eosinophils (%) (Auto) 0, Basophils (%) (Auto) 0, Neutrophils # (Auto) 11.3H, Lymphocytes # (Auto) 0.9L, Monocytes # (Auto) 1.2H, Eosinophils # (Auto) 0.0, Basophils # (Auto) 0.0, Sodium Level 135, Potassium Level 5.1H, Chloride Level 106, Carbon Dioxide Level 16L, Anion Gap 13, Blood Urea Nitrogen 16, Creatinine 1.60H, Estimat Glomerular Filtration Rate 43, BUN/Creatinine Ratio 10, Glucose Level 118H, Calcium Level 8.4L, Corrected Calcium 9.1, Total Bilirubin 0.9, Aspartate Amino Transf (AST/SGOT) 26, Alanine Aminotransferase (ALT/SGPT) 37, Alkaline Phosphatase 86, Total Protein 6.3L, Albumin 3.1L Microbiology 01/04/19 Blood Culture - Preliminary, Resulted No growth 01/05/19 MRSA Screen - Final, Complete MRSA not isolated 01/04/19 Urine Culture - Final, Complete 3 or more isolates Assessment/Plan Assessment/Plan Assess & Plan/Chief Complaint A 73 year old male who is S/P Lap buffy VSS WBC normal Tolerating diet Hgb 14.0 OK to DC patient home and resume anticoagulation and home meds. Clinical Quality Measures DVT/VTE Risk/Contraindication: Risk Factor Score Per Nursin RFS Level Per Nursing on Admit: 4+=Very High ELMIRA RIVER APRN Jan 07, 2019 11:19 POS
[2019-01-07 12:00] VITALS: BP 141/75
[2019-01-07] MEDS ORDERED: NYST1000 PO (12:03)
--- NOTE | 2019-01-07 12:04 | Discharge Summary ---
Discharge Summary Hospital Course Was the Problem List Reviewed?: Yes Problems/Dx: (1) Acute cholecystitis Status: Acute (2) Obesity Status: Chronic (3) Obstructive sleep apnea Status: Chronic (4) Atrial fibrillation Status: Chronic Qualifiers: Qualified Codes: I48.91 - Unspecified atrial fibrillation (5) Smoker Status: Chronic Hospital Course Date of Admission: Jan 04, 2019 at 11:07 Admission Diagnosis : Family Physician/Provider: Leandro Chadwick Date of Discharge: 01/07/19 Discharge Diagnosis: Acute cholecystitis s/p choly Dr Quiñonez, chronic AF, OAC, COPD, smoker Hospital Course: Patient had an uncomplicated course after admitted and placed on IV abx for gallbladder infection and Cardiology was consulted and OAC was held. Labs and vitals remained stable and patient was deemed stable after an uncomplicated choly on abx to complete treatment. Labs and Pending Lab Test: Laboratory Tests 01/07/19 03:43: White Blood Count 13.4H, Red Blood Count 4.42, Hemoglobin 14.0, Hematocrit 42, Mean Corpuscular Volume 96, Mean Corpuscular Hemoglobin 32, Mean Corpuscular Hemoglobin Concent 33, Red Cell Distribution Width 13.6, Platelet Count 191, Mean Platelet Volume 10.9H, Neutrophils (%) (Auto) 85H, Lymphocytes (%) (Auto) 6L, Monocytes (%) (Auto) 9, Eosinophils (%) (Auto) 0, Basophils (%) (Auto) 0, Neutrophils # (Auto) 11.3H, Lymphocytes # (Auto) 0.9L, Monocytes # (Auto) 1.2H, Eosinophils # (Auto) 0.0, Basophils # (Auto) 0.0, Sodium Level 135, Potassium Level 5.1H, Chloride Level 106, Carbon Dioxide Level 16L, Anion Gap 13, Blood Urea Nitrogen 16, Creatinine 1.60H, Estimat Glomerular Filtration Rate 43, BUN/Creatinine Ratio 10, Glucose Level 118H, Calcium Level 8.4L, Corrected Calcium 9.1, Total Bilirubin 0.9, Aspartate Amino Transf (AST/SGOT) 26, Alanine Aminotransferase (ALT/SGPT) 37, Alkaline Phosphatase 86, Total Protein 6.3L, Albumin 3.1L Microbiology 01/04/19 Blood Culture - Preliminary, Resulted No growth 01/05/19 MRSA Screen - Final, Complete MRSA not isolated 11/20/19 Urine Culture - Final, Complete 3 or more isolates Home Meds Active Nystatin 100,000 Unit/1 Ml Oral.susp 5 Ml PO Q6HR Augmentin 875-125 Tablet (Amoxicillin/Potassium Clav) 1 Each Tablet 1 Each PO BI D Hydrocodone/Acetaminophen 5/325mg Tablet (Acetaminophen/Hydrocodone Bitart) 1 Tab Tab 1-2 Tab PO Q6H PRN MDD 10 Colace (Docusate Sodium) 100 Mg Capsule 100 Mg PO BID Reported Flonase Allergy Relief (Fluticasone Propionate) 9.9 Ml Stilwell.susp 1 Stilwell NS DAILY PRN Tylenol Extra Strength (Acetaminophen) 500 Mg Tablet 1,000 Mg PO Q4H PRN Potassium Chloride 20 Meq Tab.er.prt 20 Meq PO DAILY Furosemide 40 Mg Tablet 40 Mg PO DAILY Metoprolol Tartrate 50 Mg Tablet 50 Mg PO BID Enalapril Maleate 10 Mg Tablet 10 Mg PO DAILY Xarelto (Rivaroxaban) 20 Mg Tablet 20 Mg PO 1700 Pantoprazole Sodium 40 Mg Tablet.dr 40 Mg PO DAILY Assessment/Pt Instructions [facility]C 1 week Discharge Planning: <30 minutes discharge planning Discharge Instructions Discharge Diet: Regular Diet Activity as Tolerated: No Pneumonia Vaccine Order Indica: Yes Discharge Physical Examination Vital Signs Vital Signs Date Time Temp Pulse Resp B/P (MAP) Pulse Ox O2 Delivery O2 Flow Rate FiO2 01/07/19 08:05 91 Room Air 01/07/19 08:00 36.8 107 24 142/75 (97) 01/06/19 20:40 1.00 General Appearance: No Apparent Distress, WD/WN Respiratory: Lungs Clear Neurologic/Psychiatric: Alert, Oriented x3, No Motor/Sensory Deficits, Normal Mood/Affect Allergies: Coded Allergies: codeine (Unverified Allergy, Intermediate, DIZZYNESS, FAINTING, 07/16/14) Discharge Summary Date of Admission Jan 04, 2019 at 11:07 Date of Discharge Discharge Date: Jan 07, 2019 Admission Diagnosis Assessment: Acute cholecystitis AF HTN HLP COPD Smoker Plan: Nikkisylorena Choly Wednesday Hold OAC Discharge Diagnosis s/p choly Pain control Monitor cardiac (1) Acute cholecystitis Status: Acute (2) Obesity Status: Chronic (3) Obstructive sleep apnea Status: Chronic (4) Atrial fibrillation Status: Chronic Qualifiers: Qualified Codes: I48.91 - Unspecified atrial fibrillation (5) Smoker Status: Chronic Clinical Quality Measures DVT/VTE Risk/Contraindication: Risk Factor Score Per Nursin RFS Level Per Nursing on Admit: 4+=Very High YULIANA AMRTIN DO Jan 07, 2019 12:04 POS
[2019-01-07 12:50] VITALS: BP 141/75
--- NOTE | 2019-01-07 12:55 | Anesthesia-General Post-Op ---
General Patient Condition Mental Status/LOC: Same as Preop Cardiovascular: Satisfactory Nausea/Vomiting: Absent Respiratory: Satisfactory Pain: Controlled Complications: Absent Post Op Complications Complications None Follow Up Care/Instructions Patient Instructions None needed. Anesthesia/Patient Condition Patient Condition Patient is doing well, no complaints, stable vital signs, no apparent adverse anesthesia problems. No complications reported per nursing. IOANA WILSON CRNA Jan 07, 2019 12:55 POS
--- NOTE | 2019-01-07 13:04 | Cardiology Progress Note ---
Cardiology SOAP Progress Note Subjective: No cardiac complaints. Improved abdominal discomfort. Objective: I&O/Vital Signs 01/07/19 01/07/19 01/07/19 01/07/19 04:00 07:00 07:30 08:00 Temp 36.4 36.8 Pulse 88 121 107 Resp 20 24 B/P (MAP) 112/78 (89) 142/75 (97) Pulse Ox 94 94 O2 Delivery Room Air Room Air Room Air 01/07/19 08:05 Pulse Ox 91 O2 Delivery Room Air 01/07/19 00:00 Intake Total 930 ml Output Total 330 ml Balance 600 ml Weight (Pounds): 313 Weight (Ounces): 9.3 Weight (Calculated Kilograms): 142.316649 Constitutional: appears stated age; No apparent distress; well-developed, well- nourished Respiratory: chest is bilaterally symmetric, lungs clear to auscultation Cardiovascular: irregularly irregular, S1 and S2 Gastrointestional: soft, tenderness, audible bowel sounds; No spleenomegaly Extremities: normal range of motion, non-tender, normal inspection; No clubbing, No cyanosis; no lower extremity edema bilateral; No significant edema Neurologic/Psychiatric: no motor/sensory deficits, alert, normal mood/affect, oriented x 3, power is 5/5 both on sides Skin: normal color, warm/dry; No rash, No ulcerations Results/Procedures: Labs Laboratory Tests 01/07/19 03:43: White Blood Count 13.4H, Red Blood Count 4.42, Hemoglobin 14.0, Hematocrit 42, Mean Corpuscular Volume 96, Mean Corpuscular Hemoglobin 32, Mean Corpuscular Hemoglobin Concent 33, Red Cell Distribution Width 13.6, Platelet Count 191, Mean Platelet Volume 10.9H, Neutrophils (%) (Auto) 85H, Lymphocytes (%) (Auto) 6L, Monocytes (%) (Auto) 9, Eosinophils (%) (Auto) 0, Basophils (%) (Auto) 0, Neutrophils # (Auto) 11.3H, Lymphocytes # (Auto) 0.9L, Monocytes # (Auto) 1.2H, Eosinophils # (Auto) 0.0, Basophils # (Auto) 0.0, Sodium Level 135, Potassium Level 5.1H, Chloride Level 106, Carbon Dioxide Level 16L, Anion Gap 13, Blood Urea Nitrogen 16, Creatinine 1.60H, Estimat Glomerular Filtration Rate 43, BUN/Creatinine Ratio 10, Glucose Level 118H, Calcium Level 8.4L, Corrected Calcium 9.1, Total Bilirubin 0.9, Aspartate Amino Transf (AST/SGOT) 26, Alanine Aminotransferase (ALT/SGPT) 37, Alkaline Phosphatase 86, Total Protein 6.3L, Albumin 3.1L Microbiology 01/04/19 Blood Culture - Preliminary, Resulted No growth 01/05/19 MRSA Screen - Final, Complete MRSA not isolated 01/04/19 Urine Culture - Final, Complete 3 or more isolates A/P: Assessment/Dx: Acute cholecystitis, Perioperative cardiovascular risk assessment, Persistent atrial fibrillation, Sleep apnea, Hypertension, Previous history of stroke, Mild CAD, Diastolic dysfunction. Plan: Acute cholecystitis, on IV antibiotics. Successful surgery done on Wednesday. Persistent atrial fibrillation, rate is well controlled. EKG. Echocardiogram done 01/04/2019 shows normal LV function. Patient needs to be on oral anticoagulation when okay with surgery. It apparently Dr. Ron saw the patient and told him that he can start Xarelto tonight. Will defer to surgery. Sleep apnea, Hypertension, continue outpatient medical therapy. Previous history of stroke, Mild CAD, no active issues. Diastolic dysfunction. No active issues. Echocardiogram was done in atrial fibrillation therefore diastolic function was not accurately assessed. Follow-up with Dr. Esteban as an outpatient. Thank you for your consultation. Please call me if you have any questions. Andriy Esteban MD, FACP, FACC, FSCAI, FHRS, CCDS Interventional Cardiology Cardiac Electrophysiology Vascular Medicine and Endovascular Interventions Nash ESTEBAN MD Jan 07, 2019 13:04 POS
== END 2019-01-07 12:50 | disposition home or self-care (01) | DRG 418 ==
LOC: EDUNIT# 06:20 → ER 06:23 → 4TH 11:07
PROVIDERS: ADMIT Surgery; ATTEND Surgery
PROC: 0FT44ZZ Resection of Gallbladder, Percutaneous Endoscopic Approach (ICD-10-PCS; principal; 2019-01-06 09:34)
DX: K80.00 Calculus of gallbladder with acute cholecystitis without obstruction (principal); I48.19 Other persistent atrial fibrillation; Z68.41 Body mass index [BMI] 40.0-44.9, adult; E66.9 Obesity, unspecified; I25.10 Atherosclerotic heart disease of native coronary artery without angina pectoris; I10 Essential (primary) hypertension; J44.9 Chronic obstructive pulmonary disease, unspecified; G47.33 Obstructive sleep apnea (adult) (pediatric); E78.00 Pure hypercholesterolemia, unspecified; M19.90 Unspecified osteoarthritis, unspecified site; M54.9 Dorsalgia, unspecified; F17.290 Nicotine dependence, other tobacco product, uncomplicated; I69.898 Other sequelae of other cerebrovascular disease; H54.60 Unqualified visual loss, one eye, unspecified; G89.29 Other chronic pain; H26.9 Unspecified cataract; H54.3 Unqualified visual loss, both eyes; H91.90 Unspecified hearing loss, unspecified ear; K82.A1 Gangrene of gallbladder in cholecystitis; Z79.01 Long term (current) use of anticoagulants
CPT/HCPCS: 36415; 71260; 74177; 80053; 81000; 83605; 83690; 85007; 85025; 85027; 85610; 86141; 87040; 87081; 87088; 93005; 94660; 94664; 94760; 96361; 96365; 96375

== ENCOUNTER → 2020-04-19 | Outpatient (CLI) | payer SELFPAY ==
[~2020-04-19] MED LIST changes: +ACET-2267 PO; +ACHD5005 PO; +DOCU-143 PO; +ENAL10TA16 PO; +ENAL20TA16 PO; +FLUT9.9S NS; -METO-370 PO; +METO50TA15 PO; +METO50TA7 PO; +NYST1000 PO; -PANT40TA3 PO; +PANT40TA52 PO; +POTA20TA15 PO; +RIVA20TA PO; +RT-ALBUTEROL SULF 2.5 MG/3 ML PRE-MIX VIAL INH ONE
--- NOTE | 2020-04-19 15:25 | Diagnostic Imaging Report ---
EXAMINATION: CT Chest without contrast (lung screening). TECHNIQUE: Multiple contiguous axial images were obtained through the chest without the use of intravenous contrast according to lung cancer screening protocol. All CT scans use one or more of the following dose optimizing techniques: automated exposure control, MA and/or KvP adjustment based on a patient size and exam type, or iterative reconstruction. HISTORY: 62 pack year history of smoking. COMPARISON: 01/04/2019. FINDINGS: There is no edema or pneumonia. No pleural effusion. No pneumothorax. No suspicious nodules. There is no axillary or supraclavicular lymphadenopathy. There is no mediastinal lymphadenopathy. Heart size is normal. There are mild coronary artery calcifications. No pericardial effusion. Aorta is normal in caliber. Limited views of the upper abdomen are unremarkable. There are no suspicious osseous lesions. IMPRESSION: 1. No suspicious pulmonary nodules. LUNG-RADS CATEGORY: 1 MODIFIER: None. Dictated by: Dictated on workstation # [id number]
== END ==
LOC: RT 12:38
PROVIDERS: ATTEND Nurse Practitioner Family
DX: J44.9 Chronic obstructive pulmonary disease, unspecified (principal); F17.210 Nicotine dependence, cigarettes, uncomplicated
CPT/HCPCS: 71271; 94060; 94726; 94729

== ENCOUNTER → 2020-04-26 | Outpatient (CLI) | payer MEDICARE, OTHER ==
[~2020-04-26] MED LIST changes: -RT-ALBUTEROL SULF 2.5 MG/3 ML PRE-MIX VIAL INH ONE
== END ==
LOC: CARD 13:00
PROVIDERS: ATTEND Internal Medicine Cardiovascular Disease
DX: I11.9 Hypertensive heart disease without heart failure (principal)

== ENCOUNTER → 2020-05-15 | Outpatient (CLI) | payer MEDICARE, OTHER ==
[~2020-05-15] VITALS: Ht 177 cm; Wt 143.0 kg
[~2020-05-15] MED LIST changes: +REGADENOSON 0.4 MG/5 ML SYR (LEXISCAN) IV ONE
[2020-05-15] MEDS: CATHETER FLUSH 10 ML SYR IV PRN ×2 (07:56→09:28)
[2020-05-15 09:25] VITALS: BP 132/99
--- NOTE | 2020-05-15 14:44 | Cardiology Stress Test Report ---
Stress Test Report Date of Procedure/Referring: Date of Procedure: May 15, 2020 PCP Jared Vázquez MD Admitting Physician Center/[facility] Indications: HTN Baseline Heart Rate: 92 Baseline Blood Pressure: Blood Pressure Systolic: 132 Blood Pressure Diastolic: 99 Baseline Vitals Vital Signs Date Time Temp Pulse Resp B/P (MAP) Pulse Ox O2 Delivery O2 Flow Rate FiO2 05/15/20 09:25 99 16 132/99 (110) 98 Room Air Baseline EKG: Baseline EKG: Atrial fibrillation Summary After explaining the procedure to the patient, he signed a consent and then brought to the stress nuclear laboratory. Patient received 0.4 mg Lexiscan for stress test, ECG, heart rate and blood pressure were monitored continuously. Resting and stress dose of radio tracer were injected, imaging was acquired and reviewed in short axis, horizontal long axis and vertical long axis views. TID: 1.12 SSS: 2 SDS: 2 EF: 55 1. Patient tolerated Lexiscan well 2. Baseline atrial fibrillation persisted during test 3. No significant ischemia or infarction on SPECT images 4. Normal left ventricular size, EF 55%, gated images are unreliable due to underlying atrial fibrillation JARED VÁZQUEZ MD May 15, 2020 14:44
== END ==
LOC: CARD 08:30
PROVIDERS: ATTEND Internal Medicine Cardiovascular Disease
DX: I10 Essential (primary) hypertension (principal); R07.9 Chest pain, unspecified
CPT/HCPCS: 78452; 93017; A9502